=== PATIENT | male | born 1960 | race Caucasian/White ===

== ENCOUNTER 2021-03-03 14:55 | Inpatient (IN) | payer SELFPAY ==
[~2021-03-03] VITALS: Ht 180.3 cm; Wt 109.7 kg
[2021-03-03] MEDS ORDERED: IV NORMAL SALINE 1000ML BAG 1,000 ML IV ONE (20:00)
[2021-03-03 20:47] LABS: BASO # 0.1 x10^3/uL (0.0-0.2); BASO % 1 % (0-3); EOS # 0.1 x10^3/uL (0.0-0.7); EOS % 1 % (0-3); HEMOGLOBIN 14.8 g/dL (13.0-17.5); LYMPH # 3.9 x10^3/uL (1.0-4.8); LYMPH % 31 % (24-48); MEAN CORPUSCULAR HEMOGLOBIN 30 pg (25-35); MEAN CORPUSCULAR HGB CONC 34 g/dL (31-37); MEAN CORPUSCULAR VOLUME 89 fL (79-100); MONO % 8 % (0-9); NEUT # 7.3 x10^3/uL (1.8-7.7); NEUT % 59 % (31-73); PLATELET COUNT 349 x10^3/uL (140-400); RED BLOOD COUNT 4.92 x10^6/uL (4.30-5.70); RED CELL DISTRIBUTION WIDTH 12.7 % (11.5-14.5); WHITE BLOOD COUNT 12.5 x10^3/uL (4.0-11.0)
[2021-03-03 21:01] LABS: CALCIUM 8.7 mg/dL (8.5-10.1); CREATININE 0.6 mg/dL (0.7-1.3); GFR 138.4; POTASSIUM 4.3 mmol/L (3.5-5.1)
[2021-03-03 21:07] LABS: ALBUMIN 3.3 g/dL (3.4-5.0); ALBUMIN/GLOBULIN RATIO 0.8 (1.0-1.7); MAGNESIUM 1.8 mg/dL (1.8-2.4); TOTAL BILIRUBIN 0.4 mg/dL (0.2-1.0); TOTAL PROTEIN 7.4 g/dL (6.4-8.2)
--- NOTE | 2021-03-03 21:30 | RAD ---
Exam: Left foot 3 views INDICATION: Wound TECHNIQUE: Frontal, lateral and oblique views of the left foot Comparisons: None FINDINGS: Soft tissue irregularity noted along the lateral aspect of the midfoot. Periosteal reaction at the pr oximal phalanx of the fifth digit. No acute fractures identified. There is some irregularity of the f ifth metatarsal. IMPRESSION: Soft tissue swelling at the forefoot with lateral ulceration. Findings concerning for osteomyelitis a t the fifth digit proximal phalanx and metatarsal. Electronically signed by: Mike Treadwell MD (03/03/2021 9:27 PM) [facility]
--- NOTE | 2021-03-03 21:56 | PHYS DOC ---
Past Medical History Past Surgical History: No Surgical History (DAVION BAKER APRN) Smoking Status: Former Smoker Alcohol Use: None (DAVION BAKER APRN) General Adult EDM: Chief Complaint: WOUND CHECK HPI: HPI: Patient is a 60-year-old male who presents with wound to bottom of his foot. Patient reports he noticed the wound a couple days ago when he was there is drainage on his sock. Patient does not have an established primary care provider. Patient was seen in urgent care prior to coming to emergency room. Patient's denying pain. Wound is red, swollen and pus is draining from the site. Patient is afebrile. Patient denies all other complaints. Patient not up-to-date on immunizations. Patient denies any diagnosed medical history not taking any daily medications. (DAVION BAKER APRN) Review of Systems: Review of Systems: ROS At least 10 ROS systems have been reviewed and are negative except as documented in the HPI. General: Negative except as outlined in HPI above. Skin: Negative except as outlined in HPI above. HEENT: Negative except as outlined in HPI above. Neck: Negative except as outlined in HPI above. Respiratory: Negative except as outlined in HPI above.. Cardiovascular: Negative except as outlined in HPI above. Abdomen: Negative except as outlined in HPI above. : Negative except as outlined in HPI above. Back/MSK: Negative except as outlined in HPI above. Neuro: Negative except as outlined in HPI above. Psych: Negative except as outlined in HPI above. (DAVION BAKER APRN) Heart Score: C/O Chest Pain: No Risk Factors: Risk Factors: DM, Current or recent (<one month) smoker, HTN, HLP, family history of CAD, obesity. Risk Scores: Score 0 - 3: 2.5% MACE over next 6 weeks - Discharge Home Score 4 - 6: 20.3% MACE over next 6 weeks - Admit for Clinical Observation Score 7 - 10: 72.7% MACE over next 6 weeks - Early Invasive Strategies (DAVION BAKER APRN) Current Medications: Current Medications Medications (Trade) Dose Ordered Sig/Vladimir Start Time Stop Time Status Last Admin Dose Admin Sodium Chloride 1,000 ml @ 0 mls/hr 1X ONCE 03/03/21 20:00 03/03/21 20:04 DC 03/03/21 20:39 1,000 MLS/HR (DAVION BAKER APRN) Allergies: Allergies: Allergies Coded Allergies Type Severity Reaction Last Updated Verified No Known Drug Allergies 03/03/21 No (DAVION BAKER APRN) Physical Exam: PE: Constitutional: Well developed, well nourished, no acute distress, non-toxic appearance. [] HENT: Normocephalic, atraumatic, bilateral external ears normal, oropharynx moist, no oral exudates, nose normal. [] Eyes: PERRLA, EOMI, conjunctiva normal, no discharge. [] Neck: Normal range of motion, no tenderness, supple, no stridor. [] Cardiovascular:Heart rate regular rhythm, no murmur [] Lungs & Thorax: Bilateral breath sounds clear to auscultation [] Abdomen: Bowel sounds normal, soft, no tenderness, no masses, no pulsatile masses. [] Skin: diabetic foot ulcer on lateral aspect of midfoot. Purulent drainage is coming from the wound along with swelling Back: No tenderness, no CVA tenderness. [] Extremities: No tenderness, no cyanosis, no clubbing, ROM intact, no edema. [] Neurologic: Alert and oriented X 3, normal motor function, normal sensory function, no focal deficits noted. [] Psychologic: Affect normal, judgement normal, mood normal. [] (DAVION BAKER APRN) Current Patient Data: Labs: Laboratory Tests Test 03/03/21 20:36 White Blood Count 12.5 x10^3/uL (4.0-11.0) H Red Blood Count 4.92 x10^6/uL (4.30-5.70) Hemoglobin 14.8 g/dL (13.0-17.5) Hematocrit 44.0 % (39.0-53.0) Mean Corpuscular Volume 89 fL (79-100) Mean Corpuscular Hemoglobin 30 pg (25-35) Mean Corpuscular Hemoglobin Concent 34 g/dL (31-37) Red Cell Distribution Width 12.7 % (11.5-14.5) Platelet Count 349 x10^3/uL (140-400) Neutrophils (%) (Auto) 59 % (31-73) Lymphocytes (%) (Auto) 31 % (24-48) Monocytes (%) (Auto) 8 % (0-9) Eosinophils (%) (Auto) 1 % (0-3) Basophils (%) (Auto) 1 % (0-3) Neutrophils # (Auto) 7.3 x10^3/uL (1.8-7.7) Lymphocytes # (Auto) 3.9 x10^3/uL (1.0-4.8) Monocytes # (Auto) 1.0 x10^3/uL (0.0-1.1) Eosinophils # (Auto) 0.1 x10^3/uL (0.0-0.7) Basophils # (Auto) 0.1 x10^3/uL (0.0-0.2) Erythrocyte Sedimentation Rate 45 (0-15) H Sodium Level 137 mmol/L (136-145) Potassium Level 4.3 mmol/L (3.5-5.1) Chloride Level 99 mmol/L (98-107) Carbon Dioxide Level 27 mmol/L (21-32) Anion Gap 11 (6-14) Blood Urea Nitrogen 13 mg/dL (8-26) Creatinine 0.6 mg/dL (0.7-1.3) L Estimated GFR (Cockcroft-Gault) 138.4 BUN/Creatinine Ratio 22 (6-20) H Glucose Level 298 mg/dL (70-99) H Calcium Level 8.7 mg/dL (8.5-10.1) Magnesium Level 1.8 mg/dL (1.8-2.4) Total Bilirubin 0.4 mg/dL (0.2-1.0) Aspartate Amino Transferase (AST) 32 U/L (15-37) Alanine Aminotransferase (ALT) 31 U/L (16-63) Alkaline Phosphatase 147 U/L (46-116) H Total Protein 7.4 g/dL (6.4-8.2) Albumin 3.3 g/dL (3.4-5.0) L Albumin/Globulin Ratio 0.8 (1.0-1.7) L Laboratory Tests 03/03/21 20:36 Laboratory Tests 03/03/21 20:36 Vital Signs: Vital Signs Date Time Temp Pulse Resp B/P (MAP) Pulse Ox O2 Delivery O2 Flow Rate FiO2 03/03/21 19:11 97.9 111 18 193/116 (141) 98 Room Air 97.9 (DAVION BAKER BARTACKER) EKG: EKG: [] (DAVION BAKER APRN) Radiology/Procedures: Radiology/Procedures: []Exam: Left foot 3 views INDICATION: Wound TECHNIQUE: Frontal, lateral and oblique views of the left foot Comparisons: None FINDINGS: Soft tissue irregularity noted along the lateral aspect of the midfoot. Periosteal reaction at the proximal phalanx of the fifth digit. No acute fractures identified. There is some irregularity of the fifth metatarsal. IMPRESSION: Soft tissue swelling at the forefoot with lateral ulceration. Findings concerning for osteomyelitis at the fifth digit proximal phalanx and metatarsal. Electronically signed by: Mike Treadwell MD (03/03/2021 9:27 PM) [facility] (DAVION BAKER APRN) Course & Med Decision Making: Course & Med Decision Making Pertinent Labs and Imaging studies reviewed. (See chart for details) [] 60-year-old male presents with diabetic foot ulcer on lateral aspect of midfoot. Work-up in the ER consisted of blood work, imaging. All labs were unremarkable. Foot x-ray is suspicious for osteomyelitis. Discussed results with patient. Advised patient he would need to be admitted for diabetic ulcer and uncontrolled diabetes. Patient's blood pressure was also elevated. Patient placed on medication for hypertension. IV antibiotics were started. Patient verbalized he understands admission plan. Discussed patient's case with hospitalist and patient was admitted for further management and treatment. (DAVION BAKER APRN) Course & Med Decision Making I was the Attending physician on the above date of service of this patient. This patient was evaluated, examined, treated, and dispositioned from the emergency department by the mid-level practitioner. I reviewed care of patient agreed to need for admission Electronically signed, Hermelindo Arellano DO (HERMELINDO AERLLANO DO) Brennen Disclaimer: Brennen Disclaimer: This electronic medical record was generated, in whole or in part, using a voice recognition dictation system. (DAVION BAKER APRN) Departure Departure Impression: Primary Impression: Foot ulcer, left Qualified Codes: L97.529 - Non-pressure chronic ulcer of other part of left foot with unspecified severity Additional Impressions: HTN (hypertension) Qualified Codes: I10 - Essential (primary) hypertension New onset type 2 diabetes mellitus Disposition: ADMITTED INPATIENT Admitting Physician: ALEXEY (DAVION BAKER APRN) Condition: STABLE Referrals: NO PCP (PCP) DAVION BAKER APRN Mar 03, 2021 21:56 HERMELINDO ARELLANO DO Mar 08, 2021 06:09
[2021-03-03] MEDS ORDERED: PIPERACILLIN/TAZOBACTAM 4.5 GM in IV NORMAL SALINE 100ML 100 ML IV ONE (23:45)
[2021-03-04] MEDS ORDERED: VANCOMYCIN 2 GM in IV NORMAL SALINE 500ML BAG 500 ML IV ONE (00:30)
[2021-03-04] MEDS ORDERED: LISINOPRIL 10 MG TABLET PO ONE (01:30)
[2021-03-04 03:30] VITALS: BP 168/101
[2021-03-04] MEDS: VANCOMYCIN PER PHARMACY MC PRN ×2 (04:23→11:43)
--- NOTE | 2021-03-04 04:23 | NUR ---
Pharmacy Vancomycin Dosing Note S:Consulted to monitor and dose vancomycin started 03/04/21. O:MONISHA LARA is a 60 year old M with DIABETIC FOOT ULCER, POSSIBLE OSTEOMYELITIS . Height: 5 feet, 11 inches Weight: 106.8 kg [place] Body Weight: 75.30 Adjusted Body Weight: 87.90 Dosing Weight: Actual Other Antibiotics: ZOSYN X1 ED LABS: Last BUN: 13 Last Creatinine: 0.6 Creatinine Clearance: 167 mL/min Last WBC: 12.5 Last Procalcitonin: Tmax (past 24 hours): Microbiology: I/O: Drug Levels: Last level: on at Last dose given 03/04/21 at 0030 Vancomycin Dosing: Loading Dose: 2000 mg x1 Dosing Weight: Actual Target Trough: 10-20 A: Based on: HT AND WT P: 1. Begin Vancomycin 1500 mg IV q8h 2. Follow up Trough level on 03/05/21 at 0030 3. Pharmacy will continue to monitor, follow and adjust therapy as needed. BLAYNE SPARKS RPH, 03/04/21 0423 Signed: 03/04/21 at 042 by BLAYNE SPARKS RPH PHA
[2021-03-04 07:00] VITALS: BP 148/88
[2021-03-04] MEDS: PIPERACILLIN/TAZOBACTAM 4.5 GM in IV NORMAL SALINE 100ML 100 ML IV SCH ×3 (09:00→19:13)
[2021-03-04] MEDS ORDERED: PIP/TAZO PER PHARMACY MC PRN (09:00)
[2021-03-04] MEDS: VANCOMYCIN 1.5 GM in IV NORMAL SALINE 500ML BAG 500 ML IV SCH ×2 (09:04→16:52)
--- NOTE | 2021-03-04 09:11 | HP ---
DATE OF SERVICE: 03/04/2021 ADMIT DATE: 03/04/2021 CHIEF COMPLAINT: Left foot wound. HISTORY OF PRESENT ILLNESS: The patient is a pleasant 60-year-old male who is on no medications. I do not think he goes to the doctor. He came in with what appears to be a diabetic foot wound on the left. He also has what appears to be a Charcot joint on the right. I suspect he has had diabetes for 3 years. I discussed the case with the ER physician. We are going to admit the patient, get him on some insulin and consult Orthopedics. PAST MEDICAL HISTORY: Probable noncompliance, previous tobacco abuse, probable long, diagnosis of diabetes has been undiagnosed. ALLERGIES: None. FAMILY HISTORY: Diabetes. SOCIAL HISTORY: He smokes. No drink or drugs. MEDICATIONS: Reviewed, please refer to the MRAD. REVIEW OF SYSTEMS: GENERAL: No history of weight change, weakness or fevers. SKIN: No bruising, hair changes or rashes. EYES: No blurred, double or loss of vision. NOSE AND THROAT: No history of nosebleeds, hoarseness or sore throat. HEART: No history of palpitations, chest pain or shortness of breath on exertion. LUNGS: Denies cough, hemoptysis, wheezing or shortness of breath. GASTROINTESTINAL: Denies changes in appetite, nausea, vomiting, diarrhea or constipation. GENITOURINARY: No history of frequency, urgency, hesitancy or nocturia. NEUROLOGIC: Denies history of numbness, tingling, tremor or weakness. PSYCHIATRIC: No history of panic, anxiety or depression. ENDOCRINE: No history of heat or cold intolerance, polyuria or polydipsia. EXTREMITIES: He complains of left foot pain. PHYSICAL EXAMINATION: VITALS: Within normal limits and are stable. GENERAL: No apparent distress. Alert and oriented. HEENT: Normal cephalic atraumatic, external auditory canals are patent. EYES: Extraocular muscles are intact, pupils are equally round and reactive to light and accommodation. MUSCULOSKELETAL: Well developed, well nourished, good range of motion. ENDOCRINE: No thyromegaly was palpated. LYMPHATICS: No cervical chain or axillary nodes were noted. HEMATOPOIETIC: No bruising. NECK: Supple, no JVD, no thyromegaly was noted. LUNGS: Clear to auscultation in all lung tony without rhonchi or wheezing. HEART: RRR, S1, S2 present. Peripheral pulses intact, no obvious murmurs were noted. ABDOMEN: Soft, nontender. Positive bowel sounds no organomegaly, normal bowel sounds. EXTREMITIES: He has a left foot diabetic wound, please see the pictures. On the right foot, he has got a Charcot joint. NEUROLOGIC: Normal speech, normal tone. A and O x 3, moves all extremities, no obvious focal deficits. PSYCHIATRIC: Normal affect, normal mood. Stable. SKIN: No ulcerations or rashes, good skin turgor, no jaundice. VASCULAR: Good capillary refill, neurovascular bundle appears to be intact. LABORATORY DATA: Electrolytes are normal except for a glucose of 303. White count is 12.5. Foot x-ray shows soft tissue swelling of the left forefoot, concerning for osteomyelitis. ASSESSMENT AND PLAN: Osteomyelitis secondary to diabetic foot lesion. The patient has been admitted. We will start IV antibiotics. Consult Orthopedics. I have started subcutaneous insulin, 10 units of NovoLog with meals and 20 at bedtime of Lantus. Continue the vancomycin. DVT prophylaxis. Full code. EVER DR: Emeka TID: [id number]
--- NOTE | 2021-03-04 10:49 | NUR ---
SW following. Discussed with RN, pt from home, room air, ada diet. New diabetic. Wound care and Vascular following. Med Assist following for self pay status. SW will continue to follow.
[2021-03-04 11:00] VITALS: BP 142/83
[2021-03-04] MEDS: INSULIN LISPRO 300 UNITS/3 ML VIAL. SQ SCH ×2 (12:17→17:24)
--- NOTE | 2021-03-04 14:43 | NUR ---
Wound/Ostomy Care Wound Type/Assessment: Wound care consult for left plantar 5th met head DFU. No other wounds noted on head to toe skin assessment. Wounds cleansed and redressed. Dr. Rock and Dr. Escobar at bedside at time of assessment. Treatment Recommendations/Plan: Cleanse wound with saline or wound wash. Cover with iodoflex, gauze and kerlix. Change every 2-3 days. Education provided: pt educated on offloading, using crutches and walker for ambulation to keep weight off left foot. Offloading surface/device: walker for ambulation, re-eval after surgery for possible offloading shoe. Recommended Referrals/Tests: Dr. Rock following up Discharge Recommendations for dressings: possible surgery with Dr. Rock tomorrow, follow Dr. Rock recommendations after surgery. Addendum: 03/04/21 at 1543 by DARLENE BENZ RN pt verbalized feelings and concerns d/t his current medical situation during consult, pt was asked about suicidal ideations which he denied.
[2021-03-04 15:00] VITALS: BP 163/98
--- NOTE | 2021-03-04 15:21 | PDOC2 ---
CONSULT Date of Consult Date of Consult DATE: 03/04/21 TIME: 15:10 Reason for Consult Reason for Consult: Left foot ulcer Source Source: Patient History of Present Illness Reason for Visit: Patient presents with a left fifth metatarsal head ulcer for unknown duration without any inciting events. Patient noticed bloody drainage from the sock which prompted him to ER. Patient denies any dressing change, recent antibiotics. He denies any constitutional symptoms. Patient relates mild d iscomfort with pressure and activities to the left fifth metatarsal head. Otherwise, he denies any prior history of metatarsal fractures or injury to the left foot. Patient also has right rocker-bottom deformity for unknown duration without any inciting events. Patient denies any open sores, drainage, redness or swelling to the right foot. Per chart review, patient was recently diagnosed with diabetes. He denies any tobacco abuse. He works in sales and also construction. He lives with an elderly mother at home. Current Problem List Problem List Problems Medical Problems: (1) Foot ulcer, left Status: Acute (2) HTN (hypertension) Status: Acute (3) New onset type 2 diabetes mellitus Status: Acute Current Medications Current Medications Current Medications Sodium Chloride 1,000 ml @ 0 mls/hr 1X ONCE IV Last administered on 03/03/21at 20:39; Start 03/03/21 at 20:00; Stop 03/03/21 at 20:04; Status DC Piperacillin Sod/ Tazobactam Sod 4.5 gm/Sodium Chloride 100 ml @ 200 mls/hr 1X ONCE IV Last administered on 03/04/21at 00:28; Start 03/03/21 at 23:45; Stop 03/04/21 at 00:14; Status DC Vancomycin HCl 2 gm/Sodium Chloride 500 ml @ 250 mls/hr 1X ONCE IV Last administered on 03/04/21at 00:28; Start 03/04/21 at 00:30; Stop 03/04/21 at 02:29; Status DC Vancomycin HCl (Vanco Per Pharmacy) 1 each PRN DAILY PRN MC SEE COMMENTS Last administered on 03/04/21at 11:43; Start 03/03/21 at 23:45 Lisinopril (Prinivil) 10 mg 1X ONCE PO Last administered on 03/04/21at 01:30; Start 03/04/21 at 01:30; Stop 03/04/21 at 01:31; Status DC Vancomycin HCl 1.5 gm/Sodium Chloride 500 ml @ 250 mls/hr Q8H IV Last administered on 03/04/21at 09:04; Start 03/04/21 at 09:00 Vancomycin HCl (Vancomycin Trough Level) 1 each 1X ONCE MC ; Start 03/05/21 at 00:30; Stop 03/05/21 at 00:31 Insulin Human Lispro (HumaLOG) 10 units TIDAC SQ Last administered on 03/04/21at 12:17; Start 03/04/21 at 11:30 Insulin Glargine (Lantus Syringe) 20 unit QHS SQ ; Start 03/04/21 at 21:00 Amlodipine Besylate (Norvasc) 10 mg DAILY PO Last administered on 03/04/21at 09: 08; Start 03/04/21 at 09:00 Piperacillin Sod/ Tazobactam Sod (Zosyn Per Pharmacy) 1 each PRN DAILY PRN MC SEE COMMENTS; Start 03/04/21 at 09:00 Piperacillin Sod/ Tazobactam Sod 4.5 gm/Sodium Chloride 100 ml @ 200 mls/hr Q6HRS IV Last administered on 03/04/21at 11:26; Start 03/04/21 at 09:00 Lactobacillus Rhamnosus (Culturelle) 1 cap BID PO ; Start 03/04/21 at 21:00 Allergies Allergies: Coded Allergies: No Known Drug Allergies (Unverified , 03/03/21) ROS Review of System CONSTITUTIONAL: No fever. No chills. No dizziness. No weakness. CARDIOVASCULAR: No chest pain. No palpitations. No lower extremity edema. RESPIRATORY: No shortness of breath, cough, pain with respiration. No he moptysis. No dyspnea. GASTROINTESTINAL: Normal appetite. No nausea, vomiting, diarrhea. GENITOURINARY: No frequency, urgency, nocturia. No hematuria or dysuria. MUSCULOSKELETAL: No arthralgias or myalgias. INTEGUMENTARY: Refer to HPI NEUROLOGIC: No numbness or tingling of the extremities. No weakness. PSYCHIATRIC: No confusion. ENDOCRINE: No fatigue. No weakness. HEMATOLOGICAL: No bleeding. No petechiae. No bruising. ALLERGIES: No asthma. No urticaria Physical Exam Physical Exam General: Pleasant without apparent distress, AOx3 Left lower extremity focused Dermatology: -Full-thickness ulcer to the sub fifth metatarsal head, probe to periosteum. There is mild to moderate undermining without any tracking dorsally or proximally along the intermetatarsal space. The wound bed is fibrotic and necrotic with malodor. There is no to minimal purulent drainage from the wound. There is erythema extending from the plantar wound dorsal medially to the fifth metatarsal neck. Vascular: -DP/PT palpable -Foot is warm to touch with CFT less than 3 seconds x 5 Neurology: -Light touch sensation diminished to the level of digits 1 through 5 MSK: -[-] TTP at the surgical site near fifth metatarsal head -Able to move digits -Muscle strength 5 out of 5 across ankle joint -Calf is soft and nontender -Moderate metatarsus adductus deformity Vitals VITALS Vital Signs Date Time Temp Pulse Resp B/P (MAP) Pulse Ox O2 Delivery O2 Flow Rate FiO2 03/04/21 11:00 98.2 99 18 142/83 (102) 95 Room Air 98.2 Labs Labs Laboratory Tests Test 03/03/21 20:36 03/04/21 08:32 03/04/21 11:57 White Blood Count 12.5 x10^3/uL (4.0-11.0) Red Blood Count 4.92 x10^6/uL (4.30-5.70) Hemoglobin 14.8 g/dL (13.0-17.5) Hematocrit 44.0 % (39.0-53.0) Mean Corpuscular Volume 89 fL (79-100) Mean Corpuscular Hemoglobin 30 pg (25-35) Mean Corpuscular Hemoglobin Concent 34 g/dL (31-37) Red Cell Distribution Width 12.7 % (11.5-14.5) Platelet Count 349 x10^3/uL (140-400) Neutrophils (%) (Auto) 59 % (31-73) Lymphocytes (%) (Auto) 31 % (24-48) Monocytes (%) (Auto) 8 % (0-9) Eosinophils (%) (Auto) 1 % (0-3) Basophils (%) (Auto) 1 % (0-3) Neutrophils # (Auto) 7.3 x10^3/uL (1.8-7.7) Lymphocytes # (Auto) 3.9 x10^3/uL (1.0-4.8) Monocytes # (Auto) 1.0 x10^3/uL (0.0-1.1) Eosinophils # (Auto) 0.1 x10^3/uL (0.0-0.7) Basophils # (Auto) 0.1 x10^3/uL (0.0-0.2) Erythrocyte Sedimentation Rate 45 (0-15) Sodium Level 137 mmol/L (136-145) Potassium Level 4.3 mmol/L (3.5-5.1) Chloride Level 99 mmol/L (98-107) Carbon Dioxide Level 27 mmol/L (21-32) Anion Gap 11 (6-14) Blood Urea Nitrogen 13 mg/dL (8-26) Creatinine 0.6 mg/dL (0.7-1.3) Estimated GFR (Cockcroft-Gault) 138.4 BUN/Creatinine Ratio 22 (6-20) Glucose Level 298 mg/dL (70-99) Calcium Level 8.7 mg/dL (8.5-10.1) Magnesium Level 1.8 mg/dL (1.8-2.4) Total Bilirubin 0.4 mg/dL (0.2-1.0) Aspartate Amino Transf (AST/SGOT) 32 U/L (15-37) Alanine Aminotransferase (ALT/SGPT) 31 U/L (16-63) Alkaline Phosphatase 147 U/L (46-116) Total Protein 7.4 g/dL (6.4-8.2) Albumin 3.3 g/dL (3.4-5.0) Albumin/Globulin Ratio 0.8 (1.0-1.7) Glucose (Fingerstick) 303 mg/dL (70-99) 361 mg/dL (70-99) Laboratory Tests Test 03/03/21 20:36 03/04/21 08:32 03/04/21 11:57 White Blood Count 12.5 x10^3/uL (4.0-11.0) Red Blood Count 4.92 x10^6/uL (4.30-5.70) Hemoglobin 14.8 g/dL (13.0-17.5) Hematocrit 44.0 % (39.0-53.0) Mean Corpuscular Volume 89 fL (79-100) Mean Corpuscular Hemoglobin 30 pg (25-35) Mean Corpuscular Hemoglobin Concent 34 g/dL (31-37) Red Cell Distribution Width 12.7 % (11.5-14.5) Platelet Count 349 x10^3/uL (140-400) Neutrophils (%) (Auto) 59 % (31-73) Lymphocytes (%) (Auto) 31 % (24-48) Monocytes (%) (Auto) 8 % (0-9) Eosinophils (%) (Auto) 1 % (0-3) Basophils (%) (Auto) 1 % (0-3) Neutrophils # (Auto) 7.3 x10^3/uL (1.8-7.7) Lymphocytes # (Auto) 3.9 x10^3/uL (1.0-4.8) Monocytes # (Auto) 1.0 x10^3/uL (0.0-1.1) Eosinophils # (Auto) 0.1 x10^3/uL (0.0-0.7) Basophils # (Auto) 0.1 x10^3/uL (0.0-0.2) Erythrocyte Sedimentation Rate 45 (0-15) Sodium Level 137 mmol/L (136-145) Potassium Level 4.3 mmol/L (3.5-5.1) Chloride Level 99 mmol/L (98-107) Carbon Dioxide Level 27 mmol/L (21-32) Anion Gap 11 (6-14) Blood Urea Nitrogen 13 mg/dL (8-26) Creatinine 0.6 mg/dL (0.7-1.3) Estimated GFR (Cockcroft-Gault) 138.4 BUN/Creatinine Ratio 22 (6-20) Glucose Level 298 mg/dL (70-99) Calcium Level 8.7 mg/dL (8.5-10.1) Magnesium Level 1.8 mg/dL (1.8-2.4) Total Bilirubin 0.4 mg/dL (0.2-1.0) Aspartate Amino Transf (AST/SGOT) 32 U/L (15-37) Alanine Aminotransferase (ALT/SGPT) 31 U/L (16-63) Alkaline Phosphatase 147 U/L (46-116) Total Protein 7.4 g/dL (6.4-8.2) Albumin 3.3 g/dL (3.4-5.0) Albumin/Globulin Ratio 0.8 (1.0-1.7) Glucose (Fingerstick) 303 mg/dL (70-99) 361 mg/dL (70-99) Assessment/Plan Assessment/Plan Left fifth metatarsal head ulcer, cellulitis, possible osteomyelitis in the setting of type 2 diabetes, peripheral neuropathy, SIRS criteria Stable none acute right midfoot Charcot with a rocker-bottom deformity -Explained clinical findings to patient. Given the chronicity of the disease, probe to periosteum, large soft tissue deficit, soft tissue healing barrier with diabetes and neuropathy, I recommended fifth metatarsal head amputation, incision and drainage staged with a later rotational flap of the fifth digit if the source is limited to the fifth metatarsal head based on intraoperative finding. However there is a chance of further limb loss if there is tracking purulence and necrotic changes to the lesser metatarsals. We discussed extensively on the recovery which requires nonweightbearing to the left lower extremity for 4 to 5 weeks at least, outpatient antibiotics for source control in addition to surgery. Any deviation from the recommendation protocol will lead to possible worsening infection, second surgery and limb loss. Patient is very apprehensive with losing the foot and also taken time off work. However he understands that surgical intervention is more predictable, definitive and o verall shorter recovery course then long-term conservative antibiotics. -The wound was dressed with Betadine soaked packing strips, gauze and Kerlex, dressing change as above twice daily otherwise, keep it clean dry intact -Partial heel touchdown weightbearing in the surgical shoe with PT and bathroom privileges, left. Weight-bear as tolerated in supportive shoes on the right -PT eval and treat -IV antibiotics, broad-spectrum IV Vanco and Zosyn -Recommend ID consult -Pending blood culture and wound culture of the left lower extremity -N.p.o. after midnight Dispo: Plan for surgical fifth metatarsal head incision and drainage staged with later rotational flap of the fifth digit pending intraoperative finding, left MATHEWDUSHREYAS DPBryon Mar 04, 2021 15:21
--- NOTE | 2021-03-04 16:40 | PDOC ---
Progress Note-Wound Care SUBJECTIVE 2 week hx of wound of plantar left 5th MT head and 5th toe. No known injury or trauma. He first noticed an odor, and when his mother asked him about the odor she examined the foot and sent him to the ER. He did not know he has diabetes. He has no insurance and does not seek medical services regularly. He has no know hx of difficulty with wound healing. He has little or no pain associated with this ulcer. OBJECTIVE Vital Signs Vital Signs Date Time Temp Pulse Resp B/P (MAP) Pulse Ox O2 Delivery O2 Flow Rate FiO2 03/03/21 19:11 97.9 111 18 193/116 (141) 98 Room Air 97.9 Vital Signs Date Time Temp Pulse Resp B/P (MAP) Pulse Ox O2 Delivery O2 Flow Rate FiO2 03/04/21 15:00 98.5 109 18 163/98 (119) 97 Room Air 98.5 Physical Exam: Deep dark wound left 5th MT head is dark with necrotic wound bed. Bone is not palpable, but there is tunnel running medially. The 5th toe is red. Otherwise the periwound is normal. The odor is foul, consistent with necrotic tissue/gangrene. Glucose was over 500 in the ED and has been running at 300 and above. ASSESSMENT This Mancia 3 or 4 DFU is limb-threatening. I would like to see open surgical debridement. The plain film is consistent with osteomyelitis as well. This patient is struggling with the ramifications of this disease. 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 He has no insurance and is concerned about how he is going to pay these medical bills. He is the only transportation for his mother who is undergoing ongoing treatment for ovarian cancer. Social work assistance is indicated. WOUND Location of Modifier: Left Wound Location: Plantar Body Site: Foot Associated Signs/Symptoms: Odor Drainage Amount: Scant Odor: Foul Odor Wound Description: muscle Grade Mancia: 3 Tunneling: Present PLAN I agree with Dr. Farmer's plan for open debridement with delayed closure. If we are able to close this wound he will be able to be back at work sooner than if we treated an open wound with negative pressure wound therapy. We can do vera flow between the first and second surgeries to help maintain a clean healthy wound. His pulses not palpable in his left dorsal pedis artery so I will order arterial ultrasound to see if further vascular intervention is indicated. 45 minutes was spent discussing options and plans and severity of his disease. PRASHANTH MERCHANT MD Mar 04, 2021 16:40
[2021-03-04 19:00] VITALS: BP 139/73
[2021-03-04] MEDS: LACTOBACILLUS RHAMNOSUS GG 1 CAPSULE. PO SCH (21:02)
[2021-03-04] MEDS: INSULIN GLARGINE SYRINGE. SQ SCH (21:21)
[2021-03-04 23:00] VITALS: BP 143/92
[2021-03-05] VITALS (11 sets, daily range): BP systolic 125–174; BP diastolic 75–104
[2021-03-05 00:55] LABS: CALCIUM 7.8 mg/dL (8.5-10.1); CREATININE 1.1 mg/dL (0.7-1.3); GFR 68.8; POTASSIUM 3.6 mmol/L (3.5-5.1)
[2021-03-05] MEDS: PIPERACILLIN/TAZOBACTAM 4.5 GM in IV NORMAL SALINE 100ML 100 ML IV SCH ×4 (00:55→17:36)
[2021-03-05 01:01] LABS: VANC TR 14.9 mcg/mL (10.0-20.0)
[2021-03-05] MEDS: VANCOMYCIN PER PHARMACY MC PRN (01:15)
--- NOTE | 2021-03-05 01:15 | NUR ---
Pharmacy Vancomycin Dosing Note S:Consulted to monitor and dose vancomycin started 03/04/21. O:MONISHA LARA is a 60 year old M with Osteomyelitis DIABETIC FOOT ULCER, POSSIBLE OSTEOMYELITIS . Height: 5 feet, 11 inches Weight: 106.6 kg [place] Body Weight: 75.30 Adjusted Body Weight: 87.82 Dosing Weight: Actual Other Antibiotics: ZOSYN LABS: Last BUN: 13 Last Creatinine: 0.6 Creatinine Clearance: >100 mL/min Last WBC: 12.5 Last Procalcitonin: Tmax (past 24 hours): 98.7 Microbiology: - I/O: Drug Levels: Last Trough level: 14.9 on 03/05/21 at 0030 Last dose given 03/04/21 at 0904 Vancomycin Dosing: Loading Dose: 2000 mg x1 Dosing Weight: Actual Target Trough: 15-20 A: Based on: TROUGH P: 1. Continue Vancomycin 1500 mg IV q8h 2. Follow up Trough level IF NEEDED 3. Pharmacy will continue to monitor, follow and adjust therapy as needed. BLAYNE SPARKS RPH, 03/05/21 0116 Signed: 03/05/21 at 0116 by BLAYNE SPARKS RPH PHA
[2021-03-05] MEDS: VANCOMYCIN 1.5 GM in IV NORMAL SALINE 500ML BAG 500 ML IV SCH ×3 (01:44→18:14)
--- NOTE | 2021-03-05 03:35 | RAD ---
LEFT LOWER EXTREMITY DUPLEX ARTERY ULTRASOUND Indication: Reason: Infected new left Diabetic Foot Ulcer on bottom of foot under 5th toe / Spl. Inst ructions: / History: Comparison: None. Procedure: Real-time grayscale, color flow Doppler, and Doppler spectral waveform analysis of the art erial system of the lower extremity is performed. Findings: Normal triphasic waveforms are present in the common femoral artery, superficial femoral artery, popl iteal artery, anterior tibial artery, peroneal artery, posterior tibial artery, and dorsalis pedis ar jose manuel. There is mild plaque in calf arteries. There is no elevated peak systolic velocity. IMPRESSION: No hemodynamically significant stenosis. Electronically signed by: Sammy Marrufo MD (03/05/2021 3:32 AM) JOCELYNENATHANAEL
[2021-03-05] MEDS ORDERED: IV RINGERS,LACTATED 1000ML 1,000 ML IV SCH (06:00)
[2021-03-05] MEDS ORDERED: PROCHLORPERAZINE 10 MG/2 ML VIAL. IVP PRN (06:00)
[2021-03-05] MEDS ORDERED: HYDROmorphone 2 MG/ML VIAL IVP PRN (06:00)
[2021-03-05] MEDS ORDERED: MORPHINE SULFATE 2 MG/ML INJ. IVP PRN (06:00)
[2021-03-05] MEDS ORDERED: fentaNYL PF VIAL 100 MCG/2 ML VIAL IVP PRN ×2 (06:00)
[2021-03-05] MEDS ORDERED: VANCOMYCIN 1 GM VIAL. ONE (07:11)
[2021-03-05] MEDS ORDERED: BUPIVACAINE MPF 0.25% 30 ML VIAL. ONE (07:11)
[2021-03-05] MEDS: INSULIN LISPRO 300 UNITS/3 ML VIAL. SQ SCH ×3 (07:30→17:40)
[2021-03-05] MEDS ORDERED: fentaNYL PF VIAL 100 MCG/2 ML VIAL ONE (08:59)
[2021-03-05] MEDS ORDERED: BUPIVACAINE-EPI 0.25% 30 ML VIAL KIT. INJ ONE (09:20)
[2021-03-05] MEDS ORDERED: ONDANSETRON PF 4 MG/2 ML VIAL. ONE (09:27)
[2021-03-05] MEDS ORDERED: LIDOCAINE 2% PF 5 ML VIAL. ONE (09:27)
[2021-03-05] MEDS ORDERED: PROPOFOL 10 MG/ML (20ML) VIAL. IV ONE (09:27)
[2021-03-05] MEDS ORDERED: ePHEDrine PF IN SALINE 50 MG/10 ML SYRINGE. IV ONE (09:34)
[2021-03-05] MEDS ORDERED: SEVOFLURANE 31 TO 60 MINUTES. IH ONE (09:44)
--- NOTE | 2021-03-05 10:07 | PDOC4 ---
OPERATIVE NOTE Date: Date: Mar 05, 2021 Pre-Op Diagnosis: Left fifth metatarsal head ulcer, cellulitis, sepsis in the setting of diabetes and peripheral neuropathy. X-ray is concerning for osteomyelitis Post-Op Diagnosis: Same as above Procedure Performed: Left foot incision and drainage, fifth metatarsal head and fifth proximal phalangeal base resection, wound VAC application, posterior splint application Surgeon: Kate Carmona DPM Anesthesia Type: General Blood Loss: 10 cc Specimans Obtained: Left fifth metatarsal head, proximal base of the fifth phalanx Findings: Full-thickness necrotic wound to the plantar fifth metatarsal head, left. The wound probed to periosteum. Upon further debridement, there was no purulence, proximal tendon tracking, violation to the fourth intermetatarsal space. The metatarsal and fifth phalanx were probe firm without any osteolytic changes clinically. Complications: None Operative Note: Patient was brought into the operating room and placed on the operating table in a supine position. A timeout was performed to confirm patient's identity, location of surgery and procedure. After induction of general anesthesia, a pneumatic high ankle tourniquet was placed with pressure set 250 mmHg. The left lower extremity was then scrubbed, prepped and draped in the usual sterile manner. The left lower extremity was elevated for gravity exsanguination and the tourniquet was inflated to 250 mmHg. Then the attention was directed to the left plantar fifth metatarsal head. A modified semielliptical full-thickness skin incisions were made at the fifth metatarsal head wound. This was carried out to aid better tissue bed examination and tissue plane exploration for proximal tracking. The incision was carried deep to the periosteum near the fifth metatarsal head. All the necrotic, liquefied tissue were excised to healthy bleeding wound bed. Then using combination of sharp and blunt dissection, fifth MTPJ joint was exposed and visualized. A sagittal saw was used to resect out the distal fifth metatarsal head and a wafer of the fifth proximal metatarsal base as well for osteomyelitis rule out. The proximal margin of the fifth metatarsal head and the distal margin of the fifth phalanx were marked with a black pen. 2 specimens were sent for pathology. Further wound bed evaluation was unremarkable for necrotic osseous changes or fourth MTPJ capsule violation. Then 3 L of saline solution was used to irrigate the wound. 1 deep tissue culture was sent for anaerobes, aerobes, Gram stain and core sensitivity. The tissue appeared granular with healthy pinpoint bleeding. A wound VAC was applied to the wound base to allow soft tissue demarcation and granulation at the procedure site. Adequate seal was achieved at 125 mmHg. tourniquet was deflated and adequate due to perfusion was noted to all 5 digits. Postoperative anesthesia consisted of 10 cc of 0.25% Marcaine plain was infiltrated to the surgical site for pain control. The left surgical lower extremity was immobilized in a well-padded Vinson compression splint with ankle held in near 90 degrees. Patient tolerated procedure anesthesia well with vital signs stable and neurovascular status intact. Patient was then transferred to PACU for continued recovery. Pending left foot 3 view x-ray in PACU. KATE CARMONA DPM Mar 05, 2021 10:07
[2021-03-05] MEDS ORDERED: INSULIN LISPRO 100 UNIT/ML 3ML VIAL for OP,RR ONLY. SQ PRN (10:15)
[2021-03-05] MEDS: LACTOBACILLUS RHAMNOSUS GG 1 CAPSULE. PO SCH ×2 (12:17→20:53)
--- NOTE | 2021-03-05 15:27 | RAD ---
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 Moderate associated soft tissue swelling. Electronically signed by: Ish Kelley MD (03/05/2021 3:25 PM) [id number]
--- NOTE | 2021-03-05 16:05 | NUR ---
SW following. Discussed with RN, pt had surgery this morning. PCR COVID came back positive. Pt does not have any Medicaid qualifiers at this time, per [facility]. SW will continue to follow.
--- NOTE | 2021-03-05 20:38 | PDOC ---
[facility] [facility] PROGRESS NOTE Date of Service DOS: DATE: 03/05/21 TIME: 20:37 Chief Complaint Chief Complaint Postop Left foot incision and drainage, fifth metatarsal head and fifth proximal phalangeal base resection, wound VAC application, posterior splint application New diagnosis of diabetes (I suspect he has had this for many years) Probable Charcot's joint Vitals/I&O Vitals/I&O: Vital Signs Date Time Temp Pulse Resp B/P (MAP) Pulse Ox O2 Delivery O2 Flow Rate FiO2 03/05/21 19:00 97.8 101 18 159/93 (115) 93 Room Air 97.8 03/05/21 09:58 10 I & O 03/04/21 03/04/21 03/05/21 15:00 23:00 07:00 Intake Total 920 ml 750 ml 100 ml Output Total 400 ml 400 ml Balance 920 ml 350 ml -300 ml Physical Exam General: Alert, Cooperative Heart: Regular rate Lungs: Clear Abdomen: Normal bowel sounds Extremities: Other (Left foot with clean dry intact dressing) Skin: No rashes Labs Labs: Laboratory Tests Test 03/05/21 00:30 03/05/21 07:31 03/05/21 10:04 03/05/21 11:45 Sodium Level 138 mmol/L (136-145) Potassium Level 3.6 mmol/L (3.5-5.1) Chloride Level 105 mmol/L (98-107) Carbon Dioxide Level 30 mmol/L (21-32) Anion Gap 3 (6-14) Blood Urea Nitrogen 13 mg/dL (8-26) Creatinine 1.1 mg/dL (0.7-1.3) Estimated GFR (Cockcroft-Gault) 68.8 Glucose Level 245 mg/dL (70-99) Calcium Level 7.8 mg/dL (8.5-10.1) Vancomycin Level Trough 14.9 mcg/mL (10.0-20.0) Vancomycin Last Dose Date Vancomycin Last Dose Time 1700 Glucose (Fingerstick) 200 mg/dL (70-99) 218 mg/dL (70-99) 237 mg/dL (70-99) Test 03/05/21 16:56 03/05/21 19:23 Glucose (Fingerstick) 184 mg/dL (70-99) 143 mg/dL (70-99) Assessment and Plan Assessmemt and Plan Problems Medical Problems: (1) Foot ulcer, left Status: Acute (2) HTN (hypertension) Status: Acute (3) New onset type 2 diabetes mellitus Status: Acute Postop Left foot incision and drainage, fifth metatarsal head and fifth proximal phalangeal base resection, wound VAC application, posterior splint application New diagnosis of diabetes (I suspect he has had this for many years) Probable Charcot's joint Plan Wound care IV antibiotics Insulin Home meds DVT prophylaxis Full code PT OT Long-term prognosis guarded Diabetic Appreciate Dr. Rock intervention Comment Review of Relevant I have reviewed the following items muriel (where applicable) has been applied. Medications: Current Medications Medications (Trade) Dose Ordered Sig/Vladimir Route PRN Reason Start Time Stop Time Status Last Admin Dose Admin Insulin Glargine (Lantus Syringe) 20 unit QHS SQ 03/04/21 21:00 03/04/21 21:21 Lactobacillus Rhamnosus (Culturelle) 1 cap BID PO 03/04/21 21:00 03/05/21 12:17 Ringer's Solution 1,000 ml @ 30 mls/hr Q24H IV 03/05/21 06:00 03/05/21 17:59 DC 03/05/21 08:00 Bupivacaine HCl/ Epinephrine Bitart (Sensorcain-Epi 0.25% Kit) 30 ml STK-MED ONCE INJ 03/05/21 09:20 03/05/21 09:36 DC 03/05/21 09:20 Insulin Human Lispro (HumaLOG VIAL for OP,RR ONLY) 0-10 units PRN Q1HR PRN SQ PER PROTOCOL 03/05/21 10:15 03/06/21 10:14 03/05/21 10:16 Justifications for Admission Other Justification MILA MATHEWS III DO Mar 05, 2021 20:38
[2021-03-05] MEDS: INSULIN GLARGINE SYRINGE. SQ SCH (21:16)
[2021-03-06] MEDS: PIPERACILLIN/TAZOBACTAM 4.5 GM in IV NORMAL SALINE 100ML 100 ML IV SCH ×3 (00:18→11:30)
[2021-03-06] MEDS: VANCOMYCIN 1.5 GM in IV NORMAL SALINE 500ML BAG 500 ML IV SCH ×2 (01:13→08:52)
[2021-03-06 03:00] VITALS: BP 132/69
[2021-03-06 07:00] VITALS: BP 171/107
[2021-03-06] MEDS: INSULIN LISPRO 300 UNITS/3 ML VIAL. SQ SCH ×3 (08:21→17:57)
[2021-03-06] MEDS: ASCORBIC ACID 500 MG TABLET PO SCH (08:52)
[2021-03-06] MEDS: MULTIVITAMIN with MINERAL TABLET. PO SCH (08:52)
[2021-03-06] MEDS: LACTOBACILLUS RHAMNOSUS GG 1 CAPSULE. PO SCH ×2 (08:52→20:53)
[2021-03-06 11:00] VITALS: BP 176/98
--- NOTE | 2021-03-06 11:46 | PDOC ---
[facility] [facility] PROGRESS NOTE Date of Service DOS: DATE: 03/06/21 TIME: 11:45 Chief Complaint Chief Complaint Postop Left foot incision and drainage, fifth metatarsal head and fifth proximal phalangeal base resection, wound VAC application, posterior splint application New diagnosis of diabetes (I suspect he has had this for many years) Probable Charcot's joint History of Present Illness History of Present Illness 03/06/2021 Patient seen and examined He has clean dry intact dressing on his right foot Discussed with RN Discussed with case management Chart reviewed He is scheduled to go back to surgery Wednesday for flap Vitals/I&O Vitals/I&O: Vital Signs Date Time Temp Pulse Resp B/P (MAP) Pulse Ox O2 Delivery O2 Flow Rate FiO2 03/06/21 08:52 103 171/107 03/06/21 08:00 Room Air 03/06/21 07:00 98.9 18 94 98.9 03/05/21 09:58 10 I & O 03/05/21 03/05/21 03/06/21 15:00 23:00 07:00 Intake Total 1120 ml 1200 ml 850 ml Output Total 10 ml 1200 ml 1000 ml Balance 1110 ml 0 ml -150 ml Physical Exam General: Alert, Cooperative Heart: Regular rate Lungs: Clear Abdomen: Normal bowel sounds Extremities: Other (Left foot with clean dry intact dressing) Skin: No rashes Labs Labs: Laboratory Tests Test 03/05/21 16:56 03/05/21 19:23 03/06/21 08:07 Glucose (Fingerstick) 184 mg/dL (70-99) 143 mg/dL (70-99) 327 mg/dL (70-99) Assessment and Plan Assessmemt and Plan Problems Medical Problems: (1) Foot ulcer, left Status: Acute (2) HTN (hypertension) Status: Acute (3) New onset type 2 diabetes mellitus Status: Acute Postop Left foot incision and drainage, fifth metatarsal head and fifth proximal phalangeal base resection, wound VAC application, posterior splint application New diagnosis of diabetes (I suspect he has had this for many years) Probable Charcot's joint Plan He is apparently scheduled to go back to surgery for a flap on Wednesday For now continue the following; Wound care IV antibiotics Insulin Home meds DVT prophylaxis Full code PT OT Diabetic education Trend labs Appreciate Dr. Rock intervention Comment Review of Relevant I have reviewed the following items muriel (where applicable) has been applied. Medications: Current Medications Medications (Trade) Dose Ordered Sig/Vladimir Route PRN Reason Start Time Stop Time Status Last Admin Dose Admin Multivitamins (Thera M Plus) 1 tab DAILY PO 03/06/21 09:00 03/06/21 08:52 Ascorbic Acid (Vitamin C) 500 mg DAILY PO 03/06/21 09:00 03/06/21 08:52 Justifications for Admission Other Justification MILA MATHEWS III DO Mar 06, 2021 11:46
[2021-03-06 14:39] LABS: CALCIUM 8.2 mg/dL (8.5-10.1); CREATININE 2.4 mg/dL (0.7-1.3); GFR 27.9; POTASSIUM 3.4 mmol/L (3.5-5.1)
[2021-03-06 15:00] VITALS: BP 176/97
[2021-03-06] MEDS: VANCOMYCIN PER PHARMACY MC PRN (15:36)
[2021-03-06] MEDS: IV NORMAL SALINE 1000ML BAG 1,000 ML IV SCH (16:33)
--- NOTE | 2021-03-06 17:32 | PDOC ---
PROGRESS NOTES Date of Service DATE: 03/06/21 TIME: 17:26 Subjective Subjective [DOS 03/05] left fifth metatarsal head and proximal base resection, I&D, wound VAC application, posterior splint Patient was seen at bedside. Denies overnight events or constitutional symptoms. The dressing/VAC has been kept clean and dry and tolerated well. Overnight drainage was minimal. The surgical foot is elevated on two pillows with the toes near the heart level. The pain is well managed with current medicine. Otherwise, patient has been working well with physical therapy. Patient was tested PCR Covid positive. Objective Objective Vital Signs Date Time Temp Pulse Resp B/P (MAP) Pulse Ox O2 Delivery O2 Flow Rate FiO2 03/06/21 11:00 97.9 103 18 176/98 (124) 96 Room Air 97.9 03/05/21 09:58 10 Intake and Output 03/06/21 07:00 Intake Total 3170 ml Output Total 2210 ml Balance 960 ml Intake Oral 770 ml IV Total 2400 ml Output Urine Total 2200 ml Estimated Blood Loss 10 ml # Bowel Movements 1 Physical Exam Physical Exam General: Pleasant without apparent distress, AOx3 Dermatology: -Dressing and VAC are intact without any strikethrough -Overnight drainage was minimal serosanguineous Vascular: -Foot is warm to touch with CFT less than 3 seconds x 5 Neurology: -Light touch sensation diminished to the level of digits 1 through 4 MSK: -Able to move digits 1 through 4 -Calf is soft and nontender Assessment Assessment Problems Medical Problems: (1) Foot ulcer, left Status: Acute (2) HTN (hypertension) Status: Acute (3) New onset type 2 diabetes mellitus Status: Acute Plan Plan of Care -Explained clinical findings. Intraoperative finding remarked necrotic changes limited to the plantar fifth metatarsal head without proximal streaking, tracking along the extensor/flexor tendons. There was no violation of the fourth intermetatarsal space or fourth MTPJ capsule. -IV antibiotics: Vancomycin and Zosyn currently -Blood culture 03/04: No growth to date -Intraoperative culture 03/05: No growth to date -Superficial wound swab 03/03: Proteus, E. coli, S.Oralis -Trend WBC daily -Appreciate internal medicine for medical optimization -Keep the dressing and VAC clean dry and intact -Strict nonweightbearing to the surgical foot -PT eval and treat Dispo: Plan for Wednesday repeat incision and drainage, rotational fifth digital flap to close the wound if intraoperative finding is insignificant for residual infection. Patient may benefit from outpatient antibiotic therapy as well. Comment Review of Relevant I have reviewed the following items muriel (where applicable) has been applied. Labs Laboratory Tests Test 03/04/21 20:35 03/05/21 00:30 03/05/21 07:31 03/05/21 10:04 Glucose (Fingerstick) 267 mg/dL (70-99) 200 mg/dL (70-99) 218 mg/dL (70-99) Sodium Level 138 mmol/L (136-145) Potassium Level 3.6 mmol/L (3.5-5.1) Chloride Level 105 mmol/L (98-107) Carbon Dioxide Level 30 mmol/L (21-32) Anion Gap 3 (6-14) Blood Urea Nitrogen 13 mg/dL (8-26) Creatinine 1.1 mg/dL (0.7-1.3) Estimated GFR (Cockcroft-Gault) 68.8 Glucose Level 245 mg/dL (70-99) Calcium Level 7.8 mg/dL (8.5-10.1) Vancomycin Level Trough 14.9 mcg/mL (10.0-20.0) Vancomycin Last Dose Date Vancomycin Last Dose Time 1700 Test 03/05/21 11:45 03/05/21 16:56 03/05/21 19:23 03/06/21 08:07 Glucose (Fingerstick) 237 mg/dL (70-99) 184 mg/dL (70-99) 143 mg/dL (70-99) 327 mg/dL (70-99) Test 03/06/21 11:44 03/06/21 14:20 03/06/21 17:03 Glucose (Fingerstick) 266 mg/dL (70-99) 201 mg/dL (70-99) Sodium Level 139 mmol/L (136-145) Potassium Level 3.4 mmol/L (3.5-5.1) Chloride Level 105 mmol/L (98-107) Carbon Dioxide Level 27 mmol/L (21-32) Anion Gap 7 (6-14) Blood Urea Nitrogen 17 mg/dL (8-26) Creatinine 2.4 mg/dL (0.7-1.3) Estimated GFR (Cockcroft-Gault) 27.9 Glucose Level 236 mg/dL (70-99) Calcium Level 8.2 mg/dL (8.5-10.1) Random Vancomycin Level 54.5 mcg/mL Laboratory Tests Test 03/05/21 19:23 03/06/21 08:07 03/06/21 11:44 03/06/21 14:20 Glucose (Fingerstick) 143 mg/dL (70-99) 327 mg/dL (70-99) 266 mg/dL (70-99) Sodium Level 139 mmol/L (136-145) Potassium Level 3.4 mmol/L (3.5-5.1) Chloride Level 105 mmol/L (98-107) Carbon Dioxide Level 27 mmol/L (21-32) Anion Gap 7 (6-14) Blood Urea Nitrogen 17 mg/dL (8-26) Creatinine 2.4 mg/dL (0.7-1.3) Estimated GFR (Cockcroft-Gault) 27.9 Glucose Level 236 mg/dL (70-99) Calcium Level 8.2 mg/dL (8.5-10.1) Random Vancomycin Level 54.5 mcg/mL Test 03/06/21 17:03 Glucose (Fingerstick) 201 mg/dL (70-99) Microbiology 03/05/21 Gram Stain - Final, Resulted 03/05/21 Aerobic and Anaerobic Culture - Preliminary, Resulted 03/04/21 Blood Culture - Preliminary, Resulted NO GROWTH AFTER 2 DAYS Medications Current Medications Sodium Chloride 1,000 ml @ 0 mls/hr 1X ONCE IV Last administered on 03/03/21at 20:39; Start 03/03/21 at 20:00; Stop 03/03/21 at 20:04; Status DC Piperacillin Sod/ Tazobactam Sod 4.5 gm/Sodium Chloride 100 ml @ 200 mls/hr 1X ONCE IV Last administered on 03/04/21at 00:28; Start 03/03/21 at 23:45; Stop 03/04/21 at 00:14; Status DC Vancomycin HCl 2 gm/Sodium Chloride 500 ml @ 250 mls/hr 1X ONCE IV Last admi nistered on 03/04/21at 00:28; Start 03/04/21 at 00:30; Stop 03/04/21 at 02:29; Status DC Vancomycin HCl (Vanco Per Pharmacy) 1 each PRN DAILY PRN MC SEE COMMENTS Last administered on 03/06/21at 15:36; Start 03/03/21 at 23:45; Stop 03/06/21 at 15:58; Status DC Lisinopril (Prinivil) 10 mg 1X ONCE PO Last administered on 03/04/21at 01:30; Start 03/04/21 at 01:30; Stop 03/04/21 at 01:31; Status DC Vancomycin HCl 1.5 gm/Sodium Chloride 500 ml @ 250 mls/hr Q8H IV Last administered on 03/06/21at 08:52; Start 03/04/21 at 09:00; Stop 03/06/21 at 15:58; Status DC Vancomycin HCl (Vancomycin Trough Level) 1 each 1X ONCE MC ; Start 03/05/21 at 00:30; Stop 03/05/21 at 00:31; Status DC Insulin Human Lispro (HumaLOG) 10 units TIDAC SQ Last administered on 02/24 05/16at 12:09; Start 03/04/21 at 11:30 Insulin Glargine (Lantus Syringe) 20 unit QHS SQ Last administered on 03/05/21at 21:16; Start 03/04/21 at 21:00 Amlodipine Besylate (Norvasc) 10 mg DAILY PO Last administered on 03/06/21at 08:52; Start 03/04/21 at 09:00 Piperacillin Sod/ Tazobactam Sod (Zosyn Per Pharmacy) 1 each PRN DAILY PRN MC SEE COMMENTS; Start 03/04/21 at 09:00; Stop 03/06/21 at 14:56; Status DC Piperacillin Sod/ Tazobactam Sod 4.5 gm/Sodium Chloride 100 ml @ 200 mls/hr Q6HRS IV Last administered on 03/06/21at 11:30; Start 03/04/21 at 09:00; Stop 03/06/21 at 14:57; Status DC Lactobacillus Rhamnosus (Culturelle) 1 cap BID PO Last administered on 03/06/21at 08:52; Start 03/04/21 at 21:00 Fentanyl Citrate (Fentanyl 2ml Vial) 25 mcg PRN Q5MIN PRN IVP MILD PAIN 1-3; Start 03/05/21 at 06:00; Stop 03/05/21 at 10:07; Status DC Fentanyl Citrate (Fentanyl 2ml Vial) 50 mcg PRN Q5MIN PRN IVP MODERATE PAIN 4- 6; Start 03/05/21 at 06:00; Stop 03/05/21 at 10:07; Status DC Morphine Sulfate (Morphine Sulfate) 1 mg PRN Q10MIN PRN IVP SEVERE PAIN 7-10; Start 03/05/21 at 06:00; Stop 03/06/21 at 05:59; Status DC Ringer's Solution 1,000 ml @ 30 mls/hr Q24H IV Last administered on 03/05/21at 08:00; Start 03/05/21 at 06:00; Stop 03/05/21 at 17:59; Status DC Hydromorphone HCl (Dilaudid) 0.5 mg PRN Q10MIN PRN IVP SEVERE PAIN 7-10, 2nd CHOICE; Start 03/05/21 at 06:00; Stop 03/05/21 at 10:07; Status DC Prochlorperazine Edisylate (Compazine) 5 mg PACU PRN PRN IVP NAUSEA, MRX1; Start 03/05/21 at 06:00; Stop 03/06/21 at 05:59; Status DC Bupivacaine HCl (Sensorcaine Mpf 0.25%) 30 ml STK-MED ONCE .ROUTE ; Start 03/05/21 at 07:11; Stop 03/05/21 at 07:12; Status DC Vancomycin HCl (Vancomycin) 1 gm STK-MED ONCE .ROUTE ; Start 03/05/21 at 07:11; Stop 03/05/21 at 07:12; Status DC Fentanyl Citrate (Fentanyl 2ml Vial) 100 mcg STK-MED ONCE .ROUTE ; Start 03/05/21 at 08:59; Stop 03/05/21 at 08:59; Status DC Bupivacaine HCl/ Epinephrine Bitart (Sensorcain-Epi 0.25% Kit) 30 ml STK-MED ONCE INJ Last administered on 03/05/21at 09:20; Start 03/05/21 at 09:20; Stop 03/05/21 at 09:36; Status DC Ondansetron HCl (Zofran) 4 mg STK-MED ONCE .ROUTE ; Start 03/05/21 at 09:27; Stop 03/05/21 at 09:27; Status DC Propofol (Diprivan) 200 mg STK-MED ONCE IV ; Start 03/05/21 at 09:27; Stop 03/05/21 at 09:27; Status DC Lidocaine HCl (Lidocaine Pf 2% Vial) 5 ml STK-MED ONCE .ROUTE ; Start 03/05/21 at 09:27; Stop 03/05/21 at 09:27; Status DC Ephedrine Sulfate (ePHEDrine PF IN SALINE SYRINGE) 50 mg STK-MED ONCE IV ; Start 03/05/21 at 09:34; Stop 03/05/21 at 09:34; Status DC Sevoflurane (Ultane) 30 ml STK-MED ONCE IH ; Start 03/05/21 at 09:44; Stop 03/05/21 at 09:45; Status DC Insulin Human Lispro (HumaLOG VIAL for OP,RR ONLY) 0-10 units PRN Q1HR PRN SQ PER PROTOCOL Last administered on 03/05/21at 10:16; Start 03/05/21 at 10:15; Stop 03/06/21 at 10:14; Status DC Multivitamins (Thera M Plus) 1 tab DAILY PO Last administered on 03/06/21at 08:52; Start 03/06/21 at 09:00 Ascorbic Acid (Vitamin C) 500 mg DAILY PO Last administered on 03/06/21at 08:52; Start 03/06/21 at 09:00 Piperacillin Sod/ Tazobactam Sod 3.375 gm/Sodium Chloride 50 ml @ 100 mls/hr Q6HRS IV ; Start 03/06/21 at 18:00 Linezolid (Zyvox) 600 mg BID PO ; Start 03/06/21 at 21:00 Sodium Chloride 1,000 ml @ 75 mls/hr [id number] IV Last administered on 03/06/21at 16:33; Start 03/06/21 at 16:00 Vitals/I & O Vital Sign - Last 24 Hours 03/05/21 03/05/21 03/05/21 03/06/21 19:00 20:05 23:00 03:00 Temp 97.8 97.9 97.8 97.8 97.9 97.8 Pulse 101 104 89 Resp 18 18 18 B/P (MAP) 159/93 (115) 148/89 (108) 132/69 (90) Pulse Ox 93 94 99 O2 Delivery Room Air Room Air Room Air Room Air 03/06/21 03/06/21 03/06/21 03/06/21 07:00 08:00 08:52 11:00 Temp 98.9 97.9 98.9 97.9 Pulse 103 103 103 Resp 18 18 B/P (MAP) 171/107 (128) 171/107 176/98 (124) Pulse Ox 94 96 O2 Delivery Room Air Room Air Room Air Intake and Output 03/05/21 03/05/21 03/06/21 15:00 23:00 07:00 Intake Total 1120 ml 1200 ml 850 ml Output Total 10 ml 1200 ml 1000 ml Balance 1110 ml 0 ml -150 ml Justifications for Admission Other Justification KATE CARMONA DPM Mar 06, 2021 17:32
[2021-03-06] MEDS: PIPERACILLIN/TAZOBACTAM 3.375 GM in IV NORMAL SALINE 50ML 50 ML IV SCH (17:34)
[2021-03-06 19:00] VITALS: BP 150/87
[2021-03-06] MEDS: LINEZOLID 600 MG TABLET PO SCH (20:53)
[2021-03-06] MEDS: INSULIN GLARGINE SYRINGE. SQ SCH (20:55)
[2021-03-06 23:00] VITALS: BP 159/92
[2021-03-07] MEDS: PIPERACILLIN/TAZOBACTAM 3.375 GM in IV NORMAL SALINE 50ML 50 ML IV SCH ×5 (00:29→23:33)
[2021-03-07] MEDS: IV NORMAL SALINE 1000ML BAG 1,000 ML IV SCH ×3 (05:29→23:44)
[2021-03-07 05:54] LABS: BASO % 0 % (0-3); EOS # 0.1 x10^3/uL (0.0-0.7); EOS % 1 % (0-3); HEMOGLOBIN 14.3 g/dL (13.0-17.5); LYMPH % 13 % (24-48); MEAN CORPUSCULAR HEMOGLOBIN 29 pg (25-35); MEAN CORPUSCULAR HGB CONC 33 g/dL (31-37); MEAN CORPUSCULAR VOLUME 91 fL (79-100); MONO # 1.3 x10^3/uL (0.0-1.1); MONO % 9 % (0-9); NEUT # 11.5 x10^3/uL (1.8-7.7); NEUT % 78 % (31-73); PLATELET COUNT 297 x10^3/uL (140-400); RED BLOOD COUNT 4.87 x10^6/uL (4.30-5.70); RED CELL DISTRIBUTION WIDTH 12.8 % (11.5-14.5); WHITE BLOOD COUNT 14.9 x10^3/uL (4.0-11.0)
[2021-03-07 06:01] LABS: CALCIUM 8.2 mg/dL (8.5-10.1); CREATININE 2.6 mg/dL (0.7-1.3); GFR 25.5; POTASSIUM 4.1 mmol/L (3.5-5.1)
[2021-03-07 07:00] VITALS: BP 182/104
[2021-03-07] MEDS: LINEZOLID 600 MG TABLET PO SCH ×2 (08:45→21:25)
[2021-03-07] MEDS: ASCORBIC ACID 500 MG TABLET PO SCH (08:45)
[2021-03-07] MEDS: LACTOBACILLUS RHAMNOSUS GG 1 CAPSULE. PO SCH ×2 (08:45→21:25)
[2021-03-07] MEDS: MULTIVITAMIN with MINERAL TABLET. PO SCH (08:46)
[2021-03-07] MEDS: INSULIN LISPRO 300 UNITS/3 ML VIAL. SQ SCH ×4 (08:56→17:30)
[2021-03-07] MEDS: hydroCHLOROthiazide 12.5 MG CAPSULE PO SCH (10:44)
--- NOTE | 2021-03-07 10:50 | NUR ---
SW following. Discussed with RN, pt from home, room air, amanda bocanegraet. Wound vac, COVID-19 positive. Surgery planned for tomorrow (03/08/21). SW will continue to follow.
[2021-03-07 11:00] VITALS: BP 178/108
--- NOTE | 2021-03-07 11:07 | PDOC2 ---
CONSULT Date of Consult Date of Consult DATE: 03/07/21 TIME: 11:00 Reason for Consult Reason for Consult: MYCHAL Referring Physician Referring Physician: BISI Identification/Chief Complaint Chief Complaint FOOT ULCER Source Source: Chart review, Patient History of Present Illness Reason for Visit: THIS IS A 60 YR OLD WITH LEFT FOOT ULCER. HAS HAD NECROTIC CHANGES TO HIS WOUND AT THE 5TH PLANTAR METATARSAL HEAD. HAS HAD I/D AND ANTIBIOTICS. NO CKD HX. CR NL ON ADMIT NOW UP TO 2.6. NON OLIGURIC. VAN LEVEL OVER 50. THIS HAS BEEN STOPPED. NO OTHER NEPHROTOXINS NOTED. HEMODYNAMICALLY STABLE. NO OTHER HX REPORTED Past Medical History Cardiovascular: HTN Pulmonary: No pertinent hx GI: Constipation Heme/Onc: No pertinent hx Hepatobiliary: No pertinent hx Psych: No pertinent hx Rheumatologic: No pertinent hx Infectious disease: No pertinent hx Renal/: No pertinent hx Endocrine: Diabetes Dermatology: No pertinent hx Past Surgical History Past Surgical History LEFT FOOT MET HEAD I/D 5TH TOE Social History <1 pack per day ALCOHOL: none Lives: Alone Current Problem List Problem List Problems Medical Problems: (1) Foot ulcer, left Status: Acute (2) HTN (hypertension) Status: Acute (3) New onset type 2 diabetes mellitus Status: Acute Current Medications Current Medications Current Medications Sodium Chloride 1,000 ml @ 0 mls/hr 1X ONCE IV Last administered on 03/03/21at 20:39; Start 03/03/21 at 20:00; Stop 03/03/21 at 20:04; Status DC Piperacillin Sod/ Tazobactam Sod 4.5 gm/Sodium Chloride 100 ml @ 200 mls/hr 1X ONCE IV Last administered on 03/04/21at 00:28; Start 03/03/21 at 23:45; Stop 03/04/21 at 00:14; Status DC Vancomycin HCl 2 gm/Sodium Chloride 500 ml @ 250 mls/hr 1X ONCE IV Last administered on 03/04/21at 00:28; Start 03/04/21 at 00:30; Stop 03/04/21 at 02:29; Status DC Vancomycin HCl (Vanco Per Pharmacy) 1 each PRN DAILY PRN MC SEE COMMENTS Last administered on 03/06/21at 15:36; Start 03/03/21 at 23:45; Stop 03/06/21 at 15:58; Status DC Lisinopril (Prinivil) 10 mg 1X ONCE PO Last administered on 03/04/21at 01:30; Start 03/04/21 at 01:30; Stop 03/04/21 at 01:31; Status DC Vancomycin HCl 1.5 gm/Sodium Chloride 500 ml @ 250 mls/hr Q8H IV Last administered on 03/06/21at 08:52; Start 03/04/21 at 09:00; Stop 03/06/21 at 15:58; Status DC Vancomycin HCl (Vancomycin Trough Level) 1 each 1X ONCE MC ; Start 03/05/21 at 00:30; Stop 03/05/21 at 00:31; Status DC Insulin Human Lispro (HumaLOG) 10 units TIDAC SQ Last administered on 03/07/21at 08:56; Start 03/04/21 at 11:30 Insulin Glargine (Lantus Syringe) 20 unit QHS SQ Last administered on 03/06/21at 20:55; Start 03/04/21 at 21:00 Amlodipine Besylate (Norvasc) 10 mg DAILY PO Last administered on 03/07/21at 08:46; Start 03/04/21 at 09:00 Piperacillin Sod/ Tazobactam Sod (Zosyn Per Pharmacy) 1 each PRN DAILY PRN MC SEE COMMENTS; Start 03/04/21 at 09:00; Stop 03/06/21 at 14:56; Status DC Piperacillin Sod/ Tazobactam Sod 4.5 gm/Sodium Chloride 100 ml @ 200 mls/hr Q6HRS IV Last administered on 03/06/21at 11:30; Start 03/04/21 at 09:00; Stop 03/06/21 at 14:57; Status DC Lactobacillus Rhamnosus (Culturelle) 1 cap BID PO Last administered on 03/07at 08:45; Start 03/04/21 at 21:00 Fentanyl Citrate (Fentanyl 2ml Vial) 25 mcg PRN Q5MIN PRN IVP MILD PAIN 1-3; Start 03/05/21 at 06:00; Stop 03/05/21 at 10:07; Status DC Fentanyl Citrate (Fentanyl 2ml Vial) 50 mcg PRN Q5MIN PRN IVP MODERATE PAIN 4- 6; Start 03/05/21 at 06:00; Stop 03/05/21 at 10:07; Status DC Morphine Sulfate (Morphine Sulfate) 1 mg PRN Q10MIN PRN IVP SEVERE PAIN 7-10; Start 03/05/21 at 06:00; Stop 03/06/21 at 05:59; Status DC Ringer's Solution 1,000 ml @ 30 mls/hr Q24H IV Last administered on 03/05/21at 08:00; Start 03/05/21 at 06:00; Stop 03/05/21 at 17:59; Status DC Hydromorphone HCl (Dilaudid) 0.5 mg PRN Q10MIN PRN IVP SEVERE PAIN 7-10, 2nd CHOICE; Start 03/05/21 at 06:00; Stop 03/05/21 at 10:07; Status DC Prochlorperazine Edisylate (Compazine) 5 mg PACU PRN PRN IVP NAUSEA, MRX1; Start 03/05/21 at 06:00; Stop 03/06/21 at 05:59; Status DC Bupivacaine HCl (Sensorcaine Mpf 0.25%) 30 ml STK-MED ONCE .ROUTE ; Start 03/05/21 at 07:11; Stop 03/05/21 at 07:12; Status DC Vancomycin HCl (Vancomycin) 1 gm STK-MED ONCE .ROUTE ; Start 03/05/21 at 07:11; Stop 03/05/21 at 07:12; Status DC Fentanyl Citrate (Fentanyl 2ml Vial) 100 mcg STK-MED ONCE .ROUTE ; Start 03/05/21 at 08:59; Stop 03/05/21 at 08:59; Status DC Bupivacaine HCl/ Epinephrine Bitart (Sensorcain-Epi 0.25% Kit) 30 ml STK-MED ONCE INJ Last administered on 03/05/21at 09:20; Start 03/05/21 at 09:20; Stop 03/05/21 at 09:36; Status DC Ondansetron HCl (Zofran) 4 mg STK-MED ONCE .ROUTE ; Start 03/05/21 at 09:27; Stop 03/05/21 at 09:27; Status DC Propofol (Diprivan) 200 mg STK-MED ONCE IV ; Start 03/05/21 at 09:27; Stop 03/05/21 at 09:27; Status DC Lidocaine HCl (Lidocaine Pf 2% Vial) 5 ml STK-MED ONCE .ROUTE ; Start 03/05/21 at 09:27; Stop 03/05/21 at 09:27; Status DC Ephedrine Sulfate (ePHEDrine PF IN SALINE SYRINGE) 50 mg STK-MED ONCE IV ; Start 03/05/21 at 09:34; Stop 03/05/21 at 09:34; Status DC Sevoflurane (Ultane) 30 ml STK-MED ONCE IH ; Start 03/05/21 at 09:44; Stop 03/05/21 at 09:45; Status DC Insulin Human Lispro (HumaLOG VIAL for OP,RR ONLY) 0-10 units PRN Q1HR PRN SQ PER PROTOCOL Last administered on 03/05/21at 10:16; Start 03/05/21 at 10:15; Stop 03/06/21 at 10:14; Status DC Multivitamins (Thera M Plus) 1 tab DAILY PO Last administered on 03/07/21at 08:46; Start 03/06/21 at 09:00 Ascorbic Acid (Vitamin C) 500 mg DAILY PO Last administered on 03/07/21at 08 :45; Start 03/06/21 at 09:00 Piperacillin Sod/ Tazobactam Sod 3.375 gm/Sodium Chloride 50 ml @ 100 mls/hr Q6HRS IV Last administered on 03/07/21at 05:29; Start 03/06/21 at 18:00 Linezolid (Zyvox) 600 mg BID PO Last administered on 03/07/21at 08:45; Start 03/06/21 at 21:00 Sodium Chloride 1,000 ml @ 75 mls/hr [id number] IV Last administered on 03/07/21at 05:29; Start 03/06/21 at 16:00 Hydrochlorothiazide (Microzide) 12.5 mg DAILY PO Last administered on 03/07/21at 10:44; Start 03/07/21 at 10:30 Allergies Allergies: Coded Allergies: No Known Drug Allergies (Unverified , 03/03/21) ROS General: YES: Fatigue, Malaise, Appetite Eyes: Yes Decreased vision HEENT: YES: Heacaches Respiratory: YES: Cough Genitourinary: YES Other (CLEAR URINE) Musculoskeletal: Yes Joint Pain, Yes Muscular Weakness Neurological: Yes Weakness Skin: Yes Dry Skin Physical Exam General: Alert, Oriented X3, Cooperative, No acute distress HEENT: Atraumatic, PERRLA Lungs: Clear to auscultation Heart: Regular rate Abdomen: Normal bowel sounds Extremities: No clubbing, Other (LEFT FOOT BANDAGED) Skin: No breakdown Neuro: Normal speech MUSCULOSKELETAL: No swelling, Other (LLE FOOT EDEMA) Vitals VITALS Vital Signs Date Time Temp Pulse Resp B/P (MAP) Pulse Ox O2 Delivery O2 Flow Rate FiO2 03/07/21 08:46 92 182/104 03/07/21 07:00 98.7 18 94 98.7 03/06/21 23:00 Room Air Labs Labs Laboratory Tests Test 03/05/21 11:45 03/05/21 16:56 03/05/21 19:23 03/06/21 08:07 Glucose (Fingerstick) 237 mg/dL (70-99) 184 mg/dL (70-99) 143 mg/dL (70-99) 327 mg/dL (70-99) Test 03/06/21 11:44 03/06/21 14:20 03/06/21 17:03 03/06/21 20:38 Glucose (Fingerstick) 266 mg/dL (70-99) 201 mg/dL (70-99) 270 mg/dL (70-99) Sodium Level 139 mmol/L (136-145) Potassium Level 3.4 mmol/L (3.5-5.1) Chloride Level 105 mmol/L (98-107) Carbon Dioxide Level 27 mmol/L (21-32) Anion Gap 7 (6-14) Blood Urea Nitrogen 17 mg/dL (8-26) Creatinine 2.4 mg/dL (0.7-1.3) Estimated GFR (Cockcroft-Gault) 27.9 Glucose Level 236 mg/dL (70-99) Calcium Level 8.2 mg/dL (8.5-10.1) Random Vancomycin Level 54.5 mcg/mL Test 03/07/21 04:20 03/07/21 07:46 White Blood Count 14.9 x10^3/uL (4.0-11.0) Red Blood Count 4.87 x10^6/uL (4.30-5.70) Hemoglobin 14.3 g/dL (13.0-17.5) Hematocrit 44.0 % (39.0-53.0) Mean Corpuscular Volume 91 fL (79-100) Mean Corpuscular Hemoglobin 29 pg (25-35) Mean Corpuscular Hemoglobin Concent 33 g/dL (31-37) Red Cell Distribution Width 12.8 % (11.5-14.5) Platelet Count 297 x10^3/uL (140-400) Neutrophils (%) (Auto) 78 % (31-73) Lymphocytes (%) (Auto) 13 % (24-48) Monocytes (%) (Auto) 9 % (0-9) Eosinophils (%) (Auto) 1 % (0-3) Basophils (%) (Auto) 0 % (0-3) Neutrophils # (Auto) 11.5 x10^3/uL (1.8-7.7) Lymphocytes # (Auto) 2.0 x10^3/uL (1.0-4.8) Monocytes # (Auto) 1.3 x10^3/uL (0.0-1.1) Eosinophils # (Auto) 0.1 x10^3/uL (0.0-0.7) Basophils # (Auto) 0.0 x10^3/uL (0.0-0.2) Sodium Level 141 mmol/L (136-145) Potassium Level 4.1 mmol/L (3.5-5.1) Chloride Level 106 mmol/L (98-107) Carbon Dioxide Level 29 mmol/L (21-32) Anion Gap 6 (6-14) Blood Urea Nitrogen 18 mg/dL (8-26) Creatinine 2.6 mg/dL (0.7-1.3) Estimated GFR (Cockcroft-Gault) 25.5 Glucose Level 318 mg/dL (70-99) Calcium Level 8.2 mg/dL (8.5-10.1) Phosphorus Level 4.6 mg/dL (2.6-4.7) Glucose (Fingerstick) 296 mg/dL (70-99) Laboratory Tests Test 03/06/21 11:44 03/06/21 14:20 03/06/21 17:03 03/06/21 20:38 Glucose (Fingerstick) 266 mg/dL (70-99) 201 mg/dL (70-99) 270 mg/dL (70-99) Sodium Level 139 mmol/L (136-145) Potassium Level 3.4 mmol/L (3.5-5.1) Chloride Level 105 mmol/L (98-107) Carbon Dioxide Level 27 mmol/L (21-32) Anion Gap 7 (6-14) Blood Urea Nitrogen 17 mg/dL (8-26) Creatinine 2.4 mg/dL (0.7-1.3) Estimated GFR (Cockcroft-Gault) 27.9 Glucose Level 236 mg/dL (70-99) Calcium Level 8.2 mg/dL (8.5-10.1) Random Vancomycin Level 54.5 mcg/mL Test 03/07/21 04:20 03/07/21 07:46 White Blood Count 14.9 x10^3/uL (4.0-11.0) Red Blood Count 4.87 x10^6/uL (4.30-5.70) Hemoglobin 14.3 g/dL (13.0-17.5) Hematocrit 44.0 % (39.0-53.0) Mean Corpuscular Volume 91 fL (79-100) Mean Corpuscular Hemoglobin 29 pg (25-35) Mean Corpuscular Hemoglobin Concent 33 g/dL (31-37) Red Cell Distribution Width 12.8 % (11.5-14.5) Platelet Count 297 x10^3/uL (140-400) Neutrophils (%) (Auto) 78 % (31-73) Lymphocytes (%) (Auto) 13 % (24-48) Monocytes (%) (Auto) 9 % (0-9) Eosinophils (%) (Auto) 1 % (0-3) Basophils (%) (Auto) 0 % (0-3) Neutrophils # (Auto) 11.5 x10^3/uL (1.8-7.7) Lymphocytes # (Auto) 2.0 x10^3/uL (1.0-4.8) Monocytes # (Auto) 1.3 x10^3/uL (0.0-1.1) Eosinophils # (Auto) 0.1 x10^3/uL (0.0-0.7) Basophils # (Auto) 0.0 x10^3/uL (0.0-0.2) Sodium Level 141 mmol/L (136-145) Potassium Level 4.1 mmol/L (3.5-5.1) Chloride Level 106 mmol/L (98-107) Carbon Dioxide Level 29 mmol/L (21-32) Anion Gap 6 (6-14) Blood Urea Nitrogen 18 mg/dL (8-26) Creatinine 2.6 mg/dL (0.7-1.3) Estimated GFR (Cockcroft-Gault) 25.5 Glucose Level 318 mg/dL (70-99) Calcium Level 8.2 mg/dL (8.5-10.1) Phosphorus Level 4.6 mg/dL (2.6-4.7) Glucose (Fingerstick) 296 mg/dL (70-99) Assessment/Plan Assessment/Plan IMP MYCHAL-SUSPICIOUS FOR INTERSTITIAL NEPHRITIS-PROB VANCOMYCIN RELATED LEFT FOOT MET HEAD WOUND/NECROSIS S/P I/D DM II HTN PLAN RENAL SONOGRAM CHECK UA HYDRATION LABS IN - DIANNA NIX MD Mar 07, 2021 11:07
--- NOTE | 2021-03-07 14:23 | RAD ---
EXAM: RENAL ULTRASOUND CLINICAL HISTORY: Acute renal failure COMPARISON: None available. TECHNIQUE: Ultrasound examination of the bilateral kidneys and urinary bladder was performed. FINDINGS: The right kidney measures 12.8 x 5.8 x 6.4 cm. The left kidney measures 12.6 x 5.0 x 6.9 cm. There is a 2.4 cm hypoechogenicity identified in the inferior pole of the left kidney. Urinary bladder is mil dly distended. IMPRESSION: 2.4 cm hypoechogenicity identified in the inferior pole the left kidney could be a cyst or cystic les ion. Consider CT urogram for further evaluation. Electronically signed by: Grant Kaur MD (03/07/2021 2:21 PM) [id number]
[2021-03-07 15:00] VITALS: BP 157/93
--- NOTE | 2021-03-07 16:04 | PDOC ---
PROGRESS NOTES Date of Service: DATE: 03/07/21 TIME: 16:01 Chief Complaint Chief Complaint Postop Left foot incision and drainage, fifth metatarsal head and fifth proximal phalangeal base resection, wound VAC application, posterior splint application New diagnosis of diabetes (I suspect he has had this for many years) Probable Charcot's joint Acute renal failure secondary to vasomotor etiology Plan Renal ultrasound Renal electrolyte Renal creatinine Follow recommendations from erp consultant as follows: -IV antibiotics: Vancomycin and Zosyn currently -Blood culture 03/04: No growth to date -Intraoperative culture 03/05: No growth to date -Superficial wound swab 03/03: Proteus, E. coli, S.Oralis -Trend WBC daily -Appreciate internal medicine for medical optimization -Keep the dressing and VAC clean dry and intact -Strict nonweightbearing to the surgical foot -PT eval and treat Dispo: Plan for Wednesday repeat incision and drainage, rotational fifth digital flap to close the wound if intraoperative finding is insignificant for residual infection. Patient may benefit from outpatient antibiotic therapy as well. Vancomycin has been transitioned to linezolid Follow urinary output History of Present Illness History of Present Illness 03/07/2021 No acute events reported overnight, case discussed with nursing staff patient in no acute distress no complaints during my visit No pain reported Patient feels much better Discussed results of his laboratory data with increase in creatinine, reassurance was provided 03/06/2021 Patient seen and examined He has clean dry intact dressing on his right foot Discussed with RN Discussed with case management Chart reviewed He is scheduled to go back to surgery Wednesday for flap Vitals Vitals Vital Signs Date Time Temp Pulse Resp B/P (MAP) Pulse Ox O2 Delivery O2 Flow Rate FiO2 03/07/21 15:00 98.0 110 18 157/93 (114) 95 98.0 03/06/21 23:00 Room Air Physical Exam General: Alert, Oriented X3, Cooperative, No acute distress Heart: Regular rate Lungs: Clear Abdomen: Normal bowel sounds Extremities: No clubbing, Other (LEFT FOOT BANDAGED) Skin: No breakdown Labs LABS Laboratory Tests Test 03/06/21 17:03 03/06/21 20:38 03/07/21 04:20 03/07/21 07:46 Glucose (Fingerstick) 201 mg/dL (70-99) 270 mg/dL (70-99) 296 mg/dL (70-99) White Blood Count 14.9 x10^3/uL (4.0-11.0) Red Blood Count 4.87 x10^6/uL (4.30-5.70) Hemoglobin 14.3 g/dL (13.0-17.5) Hematocrit 44.0 % (39.0-53.0) Mean Corpuscular Volume 91 fL (79-100) Mean Corpuscular Hemoglobin 29 pg (25-35) Mean Corpuscular Hemoglobin Concent 33 g/dL (31-37) Red Cell Distribution Width 12.8 % (11.5-14.5) Platelet Count 297 x10^3/uL (140-400) Neutrophils (%) (Auto) 78 % (31-73) Lymphocytes (%) (Auto) 13 % (24-48) Monocytes (%) (Auto) 9 % (0-9) Eosinophils (%) (Auto) 1 % (0-3) Basophils (%) (Auto) 0 % (0-3) Neutrophils # (Auto) 11.5 x10^3/uL (1.8-7.7) Lymphocytes # (Auto) 2.0 x10^3/uL (1.0-4.8) Monocytes # (Auto) 1.3 x10^3/uL (0.0-1.1) Eosinophils # (Auto) 0.1 x10^3/uL (0.0-0.7) Basophils # (Auto) 0.0 x10^3/uL (0.0-0.2) Sodium Level 141 mmol/L (136-145) Potassium Level 4.1 mmol/L (3.5-5.1) Chloride Level 106 mmol/L (98-107) Carbon Dioxide Level 29 mmol/L (21-32) Anion Gap 6 (6-14) Blood Urea Nitrogen 18 mg/dL (8-26) Creatinine 2.6 mg/dL (0.7-1.3) Estimated GFR (Cockcroft-Gault) 25.5 Glucose Level 318 mg/dL (70-99) Calcium Level 8.2 mg/dL (8.5-10.1) Phosphorus Level 4.6 mg/dL (2.6-4.7) Test 03/07/21 09:58 03/07/21 12:48 Urine Random Creatinine 19.3 mg/dL (Not Establ.) Glucose (Fingerstick) 291 mg/dL (70-99) Review of Systems Review of Systems Review of systems pertinent as per HPI otherwise 14 point review of system is negative Assessment and Plan Assessmemt and Plan Problems Medical Problems: (1) Foot ulcer, left Status: Acute (2) HTN (hypertension) Status: Acute (3) New onset type 2 diabetes mellitus Status: Acute Comment Review of Relevant I have reviewed the following items muriel (where applicable) has been applied. Labs Laboratory Tests Test 03/05/21 16:56 03/05/21 19:23 03/06/21 08:07 03/06/21 11:44 Glucose (Fingerstick) 184 mg/dL (70-99) 143 mg/dL (70-99) 327 mg/dL (70-99) 266 mg/dL (70-99) Test 03/06/21 14:20 03/06/21 17:03 03/06/21 20:38 03/07/21 04:20 Sodium Level 139 mmol/L (136-145) 141 mmol/L (136-145) Potassium Level 3.4 mmol/L (3.5-5.1) 4.1 mmol/L (3.5-5.1) Chloride Level 105 mmol/L (98-107) 106 mmol/L (98-107) Carbon Dioxide Level 27 mmol/L (21-32) 29 mmol/L (21-32) Anion Gap 7 (6-14) 6 (6-14) Blood Urea Nitrogen 17 mg/dL (8-26) 18 mg/dL (8-26) Creatinine 2.4 mg/dL (0.7-1.3) 2.6 mg/dL (0.7-1.3) Estimated GFR (Cockcroft-Gault) 27.9 25.5 Glucose Level 236 mg/dL (70-99) 318 mg/dL (70-99) Calcium Level 8.2 mg/dL (8.5-10.1) 8.2 mg/dL (8.5-10.1) Random Vancomycin Level 54.5 mcg/mL Glucose (Fingerstick) 201 mg/dL (70-99) 270 mg/dL (70-99) White Blood Count 14.9 x10^3/uL (4.0-11.0) Red Blood Count 4.87 x10^6/uL (4.30-5.70) Hemoglobin 14.3 g/dL (13.0-17.5) Hematocrit 44.0 % (39.0-53.0) Mean Corpuscular Volume 91 fL (79-100) Mean Corpuscular Hemoglobin 29 pg (25-35) Mean Corpuscular Hemoglobin Concent 33 g/dL (31-37) Red Cell Distribution Width 12.8 % (11.5-14.5) Platelet Count 297 x10^3/uL (140-400) Neutrophils (%) (Auto) 78 % (31-73) Lymphocytes (%) (Auto) 13 % (24-48) Monocytes (%) (Auto) 9 % (0-9) Eosinophils (%) (Auto) 1 % (0-3) Basophils (%) (Auto) 0 % (0-3) Neutrophils # (Auto) 11.5 x10^3/uL (1.8-7.7) Lymphocytes # (Auto) 2.0 x10^3/uL (1.0-4.8) Monocytes # (Auto) 1.3 x10^3/uL (0.0-1.1) Eosinophils # (Auto) 0.1 x10^3/uL (0.0-0.7) Basophils # (Auto) 0.0 x10^3/uL (0.0-0.2) Phosphorus Level 4.6 mg/dL (2.6-4.7) Test 03/07/21 07:46 03/07/21 09:58 03/07/21 12:48 Glucose (Fingerstick) 296 mg/dL (70-99) 291 mg/dL (70-99) Urine Random Creatinine 19.3 mg/dL (Not Establ.) Laboratory Tests Test 03/06/21 17:03 03/06/21 20:38 03/07/21 04:20 03/07/21 07:46 Glucose (Fingerstick) 201 mg/dL (70-99) 270 mg/dL (70-99) 296 mg/dL (70-99) White Blood Count 14.9 x10^3/uL (4.0-11.0) Red Blood Count 4.87 x10^6/uL (4.30-5.70) Hemoglobin 14.3 g/dL (13.0-17.5) Hematocrit 44.0 % (39.0-53.0) Mean Corpuscular Volume 91 fL (79-100) Mean Corpuscular Hemoglobin 29 pg (25-35) Mean Corpuscular Hemoglobin Concent 33 g/dL (31-37) Red Cell Distribution Width 12.8 % (11.5-14.5) Platelet Count 297 x10^3/uL (140-400) Neutrophils (%) (Auto) 78 % (31-73) Lymphocytes (%) (Auto) 13 % (24-48) Monocytes (%) (Auto) 9 % (0-9) Eosinophils (%) (Auto) 1 % (0-3) Basophils (%) (Auto) 0 % (0-3) Neutrophils # (Auto) 11.5 x10^3/uL (1.8-7.7) Lymphocytes # (Auto) 2.0 x10^3/uL (1.0-4.8) Monocytes # (Auto) 1.3 x10^3/uL (0.0-1.1) Eosinophils # (Auto) 0.1 x10^3/uL (0.0-0.7) Basophils # (Auto) 0.0 x10^3/uL (0.0-0.2) Sodium Level 141 mmol/L (136-145) Potassium Level 4.1 mmol/L (3.5-5.1) Chloride Level 106 mmol/L (98-107) Carbon Dioxide Level 29 mmol/L (21-32) Anion Gap 6 (6-14) Blood Urea Nitrogen 18 mg/dL (8-26) Creatinine 2.6 mg/dL (0.7-1.3) Estimated GFR (Cockcroft-Gault) 25.5 Glucose Level 318 mg/dL (70-99) Calcium Level 8.2 mg/dL (8.5-10.1) Phosphorus Level 4.6 mg/dL (2.6-4.7) Test 03/07/21 09:58 03/07/21 12:48 Urine Random Creatinine 19.3 mg/dL (Not Establ.) Glucose (Fingerstick) 291 mg/dL (70-99) Microbiology 03/05/21 Gram Stain - Final, Resulted 03/05/21 Aerobic and Anaerobic Culture - Preliminary, Resulted 03/04/21 Blood Culture - Preliminary, Resulted NO GROWTH AFTER 3 DAYS Medications Current Medications Sodium Chloride 1,000 ml @ 0 mls/hr 1X ONCE IV Last administered on 03/03/21at 20:39; Start 03/03/21 at 20:00; Stop 03/03/21 at 20:04; Status DC Piperacillin Sod/ Tazobactam Sod 4.5 gm/Sodium Chloride 100 ml @ 200 mls/hr 1X ONCE IV Last administered on 03/04/21at 00:28; Start 03/03/21 at 23:45; Stop 03/04/21 at 00:14; Status DC Vancomycin HCl 2 gm/Sodium Chloride 500 ml @ 250 mls/hr 1X ONCE IV Last administered on 03/04/21at 00:28; Start 03/04/21 at 00:30; Stop 03/04/21 at 02:29; Status DC Vancomycin HCl (Vanco Per Pharmacy) 1 each PRN DAILY PRN MC SEE COMMENTS Last administered on 03/06/21at 15:36; Start 03/03/21 at 23:45; Stop 03/06/21 at 15:58; Status DC Lisinopril (Prinivil) 10 mg 1X ONCE PO Last administered on 03/04/21at 01:30; Start 03/04/21 at 01:30; Stop 03/04/21 at 01:31; Status DC Vancomycin HCl 1.5 gm/Sodium Chloride 500 ml @ 250 mls/hr Q8H IV Last administered on 03/06/21at 08:52; Start 03/04/21 at 09:00; Stop 03/06/21 at 15:58; Status DC Vancomycin HCl (Vancomycin Trough Level) 1 each 1X ONCE MC ; Start 03/05/21 at 00:30; Stop 03/05/21 at 00:31; Status DC Insulin Human Lispro (HumaLOG) 10 units TIDAC SQ Last administered on 03/07/21at 12:53; Start 03/04/21 at 11:30 Insulin Glargine (Lantus Syringe) 20 unit QHS SQ Last administered on 03/06/21at 20:55; Start 03/04/21 at 21:00; Stop 03/07/21 at 13:52; Status DC Amlodipine Besylate (Norvasc) 10 mg DAILY PO Last administered on 03/07/21at 08:46; Start 03/04/21 at 09:00 Piperacillin Sod/ Tazobactam Sod (Zosyn Per Pharmacy) 1 each PRN DAILY PRN MC SEE COMMENTS; Start 03/04/21 at 09:00; Stop 03/06/21 at 14:56; Status DC Piperacillin Sod/ Tazobactam Sod 4.5 gm/Sodium Chloride 100 ml @ 200 mls/hr Q6HRS IV Last administered on 03/06/21at 11:30; Start 03/04/21 at 09:00; Stop 03/06/21 at 14:57; Status DC Lactobacillus Rhamnosus (Culturelle) 1 cap BID PO Last administered on 03/07/21at 08:45; Start 03/04/21 at 21:00 Fentanyl Citrate (Fentanyl 2ml Vial) 25 mcg PRN Q5MIN PRN IVP MILD PAIN 1-3; Start 03/05/21 at 06:00; Stop 03/05/21 at 10:07; Status DC Fentanyl Citrate (Fentanyl 2ml Vial) 50 mcg PRN Q5MIN PRN IVP MODERATE PAIN 4- 6; Start 03/05/21 at 06:00; Stop 03/05/21 at 10:07; Status DC Morphine Sulfate (Morphine Sulfate) 1 mg PRN Q10MIN PRN IVP SEVERE PAIN 7-10; Start 03/05/21 at 06:00; Stop 03/06/21 at 05:59; Status DC Ringer's Solution 1,000 ml @ 30 mls/hr Q24H IV Last administered on 03/05/21at 08:00; Start 03/05/21 at 06:00; Stop 03/05/21 at 17:59; Status DC Hydromorphone HCl (Dilaudid) 0.5 mg PRN Q10MIN PRN IVP SEVERE PAIN 7-10, 2nd CHOICE; Start 03/05/21 at 06:00; Stop 03/05/21 at 10:07; Status DC Prochlorperazine Edisylate (Compazine) 5 mg PACU PRN PRN IVP NAUSEA, MRX1; Start 03/05/21 at 06:00; Stop 03/06/21 at 05:59; Status DC Bupivacaine HCl (Sensorcaine Mpf 0.25%) 30 ml STK-MED ONCE .ROUTE ; Start 03/05/21 at 07:11; Stop 03/05/21 at 07:12; Status DC Vancomycin HCl (Vancomycin) 1 gm STK-MED ONCE .ROUTE ; Start 03/05/21 at 07:11; Stop 03/05/21 at 07:12; Status DC Fentanyl Citrate (Fentanyl 2ml Vial) 100 mcg STK-MED ONCE .ROUTE ; Start 03/05/21 at 08:59; Stop 03/05/21 at 08:59; Status DC Bupivacaine HCl/ Epinephrine Bitart (Sensorcain-Epi 0.25% Kit) 30 ml STK-MED ONCE INJ Last administered on 03/05/21at 09:20; Start 03/05/21 at 09:20; Stop 03/05/21 at 09:36; Status DC Ondansetron HCl (Zofran) 4 mg STK-MED ONCE .ROUTE ; Start 03/05/21 at 09:27; Stop 03/05/21 at 09:27; Status DC Propofol (Diprivan) 200 mg STK-MED ONCE IV ; Start 03/05/21 at 09:27; Stop 03/05/21 at 09:27; Status DC Lidocaine HCl (Lidocaine Pf 2% Vial) 5 ml STK-MED ONCE .ROUTE ; Start 03/05/21 at 09:27; Stop 03/05/21 at 09:27; Status DC Ephedrine Sulfate (ePHEDrine PF IN SALINE SYRINGE) 50 mg STK-MED ONCE IV ; Start 03/05/21 at 09:34; Stop 03/05/21 at 09:34; Status DC Sevoflurane (Ultane) 30 ml STK-MED ONCE IH ; Start 03/05/21 at 09:44; Stop 03/05/21 at 09:45; Status DC Insulin Human Lispro (HumaLOG VIAL for OP,RR ONLY) 0-10 units PRN Q1HR PRN SQ PER PROTOCOL Last administered on 03/05/21at 10:16; Start 03/05/21 at 10:15; Stop 03/06/21 at 10:14; Status DC Multivitamins (Thera M Plus) 1 tab DAILY PO Last administered on 03/07/21at 08:46; Start 03/06/21 at 09:00 Ascorbic Acid (Vitamin C) 500 mg DAILY PO Last administered on 03/07/21at 08:45; Start 03/06/21 at 09:00 Piperacillin Sod/ Tazobactam Sod 3.375 gm/Sodium Chloride 50 ml @ 100 mls/hr Q6HRS IV Last administered on 03/07/21at 12:52; Start 03/06/21 at 18:00 Linezolid (Zyvox) 600 mg BID PO Last administered on 03/07/21at 08:45; Start 03/06/21 at 21:00 Sodium Chloride 1,000 ml @ 125 mls/hr Q8H IV Last administered on 03/07/21at 05:29; Start 03/06/21 at 16:00 Hydrochlorothiazide (Microzide) 12.5 mg DAILY PO Last administered on 03/07/21at 10:44; Start 03/07/21 at 10:30 Insulin Glargine (Lantus Syringe) 12 unit BID SQ ; Start 03/07/21 at 21:00 Insulin Human Lispro (HumaLOG) 0-7 UNITS TIDWMEALS SQ ; Start 03/07/21 at 17:00 Vitals/I & O Vital Sign - Last 24 Hours 03/06/21 03/06/21 03/06/21 03/07/21 19:00 20:15 23:00 07:00 Temp 98.9 98.4 98.7 98.9 98.4 98.7 Pulse 99 99 92 Resp 22 18 18 B/P (MAP) 150/87 (108) 159/92 (114) 182/104 (130) Pulse Ox 96 93 94 O2 Delivery Room Air Room Air Room Air 03/07/21 03/07/21 03/07/21 08:46 11:00 15:00 Temp 98.3 98.0 98.3 98.0 Pulse 92 103 110 Resp 18 18 B/P (MAP) 182/104 178/108 (131) 157/93 (114) Pulse Ox 97 95 Intake and Output 03/06/21 03/06/21 03/07/21 15:00 23:00 07:00 Intake Total 600 ml 50 ml 450 ml Output Total 100 ml 1350 ml Balance 500 ml 50 ml -900 ml Justicifation of Admission Dx: Justifications for Admission: Justification of Admission Dx: Yes Acute Renal Failure: 3-Fold Rise in Serum Crea FARELA,CINDY MD Mar 07, 2021 16:04
[2021-03-07 16:55] LABS: BILIRUBIN,URINE NEGATIVE (NEG); CLARITY,URINE CLEAR; COLOR,URINE YELLOW; NITRITE,URINE NEGATIVE (NEG); PROTEIN,URINE NEGATIVE (NEG-TRACE); UROBILINOGEN,URINE 0.2 mg/dL (0.2 mg/dL)
[2021-03-07 17:08] LABS: BACTERIA,URINE 0 /HPF (0-FEW)
[2021-03-07] MEDS ORDERED: INSULIN LISPRO 300 UNITS/3 ML VIAL. SQ ONE (17:30)
--- NOTE | 2021-03-07 18:14 | PATHOLOGY ---
[facility] Accession Number: [id number] . 01 Material submitted: . PART A: toe - LEFT 5TH METATARSAL HEAD PROXIMAL INKED FOR OSTEO RULE OUT. Modifiers: left, fifth PART B: toe - LEFT 5TH TOE PROXIMAL INKED FOR OSTEO RULE OUT. Modifiers: left, fifth . 01 Clinical history: . OSTEOMYELITIS LEFT 5TH TOE FOR AMPUTATION, I/D . 02 Diagnosis: A. Segment of bone and articular cartilage with focal attached fibrous and synovial tissue, left fifth metatarsal head: - Negative for acute osteomyelitis. . B. Segment of bone and articular cartilage with focal attached fibrous and synovial tissue, left fifth toe: - Focal mild acute osteomyelitis. (JPM:bernardo; 03/07/2021) QMS 03/07/2021 1718 Local . 02 Electronically signed: . Randall Reyes MD, Pathologist NPI- [id number] . 01 Gross description: . A. Received in formalin labeled "Jeff Porras, left 5th metatarsal head proximal inked for osteomyelitis rule out" is a convex cartilage covered bone fragment measuring 2.1 x 1.6 x 1.3 cm. The convex aspect is smooth and cartilage covered and the opposite aspect is roughened and consistent with a surgical margin. The roughened aspect displays scant ink, consistent with proximal, and is subsequently inked black. [employer] System Installer cross sections are submitted in cassette A1 following decalcification. . B. Received in formalin labeled "Jeff Porras, #2 fifth toe proximal margin inked for rule out" and further labeled on the requisition as "osteo rule out" is a concave cartilage covered bone fragment measuring 1.5 x 1.5 x 0.9 cm. The concave aspect is smooth and cartilage covered and the opposite aspect is roughened and consistent with a surgical margin. The roughened aspect displays scant ink, consistent with proximal, and is subsequently inked black. Fire Control System Installer cross-sections are submitted in cassette B1 following decalcification. ([facility] [place]; 03/06/2021) [facility] 03/07/2021 1612 Local . 02 Pathologist provided ICD-10: M86.172 . 02 CPT . 472228, 945719, 085144, 211330 Specimen Comment: A courtesy copy of this report has been sent to [phone], [phone] Specimen Comment: [id number] Specimen Comment: Report sent to / DR FALLON Performed at: 01 [facility] [address], [place], [place] [id number] MD Rogerio Vega MD Phone: [phone] Performed at: 02 [facility] [address], [place] [id number] MD Randall Reyes MD Phone: [phone]
[2021-03-07 19:00] VITALS: BP 159/88
[2021-03-07 23:00] VITALS: BP 152/93
[2021-03-07 23:08] LABS: UR POTASSIUM 9.7 mmol/L (Not Estab.)
[2021-03-07] MEDS: INSULIN GLARGINE SYRINGE. SQ SCH (23:43)
[2021-03-08 03:00] VITALS: BP 162/100
[2021-03-08] MEDS: PIPERACILLIN/TAZOBACTAM 3.375 GM in IV NORMAL SALINE 50ML 50 ML IV SCH ×4 (05:53→23:15)
[2021-03-08] MEDS ORDERED: fentaNYL PF VIAL 100 MCG/2 ML VIAL IVP PRN ×2 (06:00)
[2021-03-08] MEDS ORDERED: PROCHLORPERAZINE 10 MG/2 ML VIAL. IVP PRN (06:00)
[2021-03-08] MEDS ORDERED: MORPHINE SULFATE 2 MG/ML INJ. IVP PRN (06:00)
[2021-03-08] MEDS ORDERED: HYDROmorphone 2 MG/ML VIAL IVP PRN (06:00)
[2021-03-08] MEDS ORDERED: IV RINGERS,LACTATED 1000ML 1,000 ML IV SCH (06:00)
[2021-03-08 07:00] VITALS: BP 184/111
[2021-03-08 07:18] LABS: BASO # 0.1 x10^3/uL (0.0-0.2); BASO % 0 % (0-3); EOS # 0.2 x10^3/uL (0.0-0.7); EOS % 1 % (0-3); HEMOGLOBIN 15.2 g/dL (13.0-17.5); LYMPH # 2.2 x10^3/uL (1.0-4.8); LYMPH % 13 % (24-48); MEAN CORPUSCULAR HEMOGLOBIN 30 pg (25-35); MEAN CORPUSCULAR HGB CONC 33 g/dL (31-37); MEAN CORPUSCULAR VOLUME 90 fL (79-100); MONO # 1.4 x10^3/uL (0.0-1.1); MONO % 8 % (0-9); NEUT # 12.8 x10^3/uL (1.8-7.7); NEUT % 77 % (31-73); PLATELET COUNT 326 x10^3/uL (140-400); RED CELL DISTRIBUTION WIDTH 13.1 % (11.5-14.5); WHITE BLOOD COUNT 16.6 x10^3/uL (4.0-11.0)
[2021-03-08] MEDS: INSULIN LISPRO 300 UNITS/3 ML VIAL. SQ SCH ×6 (07:30→17:55)
[2021-03-08] MEDS ORDERED: PROPOFOL 10 MG/ML (20ML) VIAL. IV ONE (07:39)
[2021-03-08] MEDS ORDERED: ONDANSETRON PF 4 MG/2 ML VIAL. ONE (07:39)
[2021-03-08] MEDS ORDERED: DEXAMETHASONE SOD PHOS 4 MG/ML VIAL ONE (07:39)
[2021-03-08] MEDS ORDERED: LIDOCAINE 2% PF 5 ML VIAL. ONE (07:39)
[2021-03-08] MEDS ORDERED: PHENYLEPHRINE in 0.9% NACL PF 1 MG/10 ML SYRINGE. IV ONE (07:39)
[2021-03-08] MEDS ORDERED: fentaNYL PF VIAL 100 MCG/2 ML VIAL ONE ×2 (07:41→09:36)
[2021-03-08] MEDS ORDERED: SUCCINYLCHOLINE 200 MG/10 ML VIAL. ONE (07:42)
[2021-03-08] MEDS ORDERED: FAMOTIDINE 20 MG/2 ML VIAL ONE (07:42)
[2021-03-08 07:56] LABS: CALCIUM 8.7 mg/dL (8.5-10.1); CREATININE 2.7 mg/dL (0.7-1.3); GFR 24.4; POTASSIUM 4.2 mmol/L (3.5-5.1)
[2021-03-08] MEDS ORDERED: SEVOFLURANE 31 TO 60 MINUTES. IH ONE (09:04)
[2021-03-08] MEDS ORDERED: SEVOFLURANE 61 TO 120 MINUTES. IH ONE (09:33)
[2021-03-08] MEDS ORDERED: MORPHINE SULFATE 2 MG/ML INJ. ONE (09:36)
[2021-03-08] MEDS ORDERED: ONDANSETRON PF 4 MG/2 ML VIAL. IVP PRN (10:00)
[2021-03-08] MEDS ORDERED: DEXTROSE 50% 25 GM / 50ML DISP.SYRIN. IV PRN (10:00)
[2021-03-08] MEDS ORDERED: HYDROcodone/APAP 5/325MG 1 TAB TABLET PO PRN (10:00)
--- NOTE | 2021-03-08 10:05 | PDOC4 ---
OPERATIVE NOTE Date: Date: Mar 08, 2021 Pre-Op Diagnosis: Prior left fifth metatarsal phalangeal joint incision and drainage in the setting of full-thickness ulcer to the fifth metatarsal head, cellulitis in the setting of possible radiographic osteomyelitis Post-Op Diagnosis: Same as above Procedure Performed: Left fifth ray incision and drainage, fifth digit amputation, delayed primary closure Surgeon: Kate Carmona DPM Anesthesia Type: General Blood Loss: 5 cc Specimans Obtained: Fifth digit and clear margin of the distal fifth metatarsal shaft, left Findings: Firm and healthy fifth metatarsal osseous stump without proximal tracking, violation to the fourth intermetatarsal space or necrotic changes to the wound bed. The skin flaps were adequately perfused however minimally macerated Complications: None Operative Note: Patient was brought into the operating room and placed on the operating table in a supine position. A timeout was performed to confirm patient's identity, locat ion of surgery and procedure. After induction of general anesthesia, a pneumatic left high ankle tourniquet was placed with pressure set 250 mmHg. The left lower extremity was then scrubbed, prepped and draped in the usual sterile manner. The left lower extremity was elevated for gravity exsanguination and the tourniquet was inflated to 250 mmHg. Then the attention was directed to the left distal MTPJ. Wound bed was insignificant for necrotic or purulent changes. There was no proximal tracking, violation to the fourth MTPJ. The wound flap and skin margins were refreshed with a #15 blade to healthy granular tissue. Manual skin reapproximation remarked to moderate skin tension. Then the decision was made to the skeletonize the fifth digit and used a digital flap to close the distal fifth metatarsal head wound. Then a linear incision was made at the plantar lateral aspect of the fifth digit down to periosteum. The fifth phalanges were removed in total while preserving healthy granular/subcutaneous tissue on the skin flap. The fifth digit was passed down to the back table with the proximal margin inked for osteomyelitis rule out. Then a small wafer was taken from the distal fifth metatarsal stump and with the proximal margin inked for osteomyelitis rule out. Then copious saline solution consisted of 3 L of normal saline was used to irrigate the surgical wound. Post washout inspection was insignificant for purulence, necrotic tissue or proximal tracking at the wound bed. Then a post washout swab was collected for anaerobes, aerobes. Then the deep tissue was reapproximated to close off the space with 3-0 Vicryl. The skin was closed under minimal to no tension with 3-0 nylon. The distal fifth distal flap was rotated plantarly and laterally to close the deficit. The excessive soft tissue flap was excised. Tourniquet was deflated and adequate flap perfusion was noted. However the dorsal lateral skin flap was minimal maceration and slightly fragile. However there no signs of dehiscence or suture failure. The surgical site was dressed with Betadine soaked Adaptic, 4 x 4. The left lower extremity was immobilized in a well-padded Vinson compression splint with ankle held in near 90 degrees. Patient tolerated procedure anesthesia well with vital signs stable and neurovascular status intact. Patient was then transferred to PACU for continued recovery. Pending left foot 3 view x-ray. Plan for Wednesday skin check and possible application of a total contact Cast. Strict nonweightbearing to left lower extremity, elevate the toes above the nose, ice behind the knee as needed. Pending pathology report, but clinically, the infection was limited to soft tissue. So 2 to 4 weeks of outpatient antibiotic therapy would be adequate unless the bone pathology returned positive for osteomyelitis. KATE CARMONA DPM Mar 08, 2021 10:05
[2021-03-08 10:11] LABS: % BANDS 1 % (0-9); % LYMPHS 10 % (24-48); % MONOS 4 % (0-10); % SEGS 85 % (35-66); PLT ESTIMATE ADEQUATE (ADEQUATE)
[2021-03-08] MEDS: MULTIVITAMIN with MINERAL TABLET. PO SCH (10:31)
[2021-03-08] MEDS: ASCORBIC ACID 500 MG TABLET PO SCH (10:31)
[2021-03-08] MEDS: hydroCHLOROthiazide 12.5 MG CAPSULE PO SCH (10:31)
[2021-03-08] MEDS: LINEZOLID 600 MG TABLET PO SCH ×2 (10:31→22:09)
[2021-03-08] MEDS: LACTOBACILLUS RHAMNOSUS GG 1 CAPSULE. PO SCH ×2 (10:32→22:09)
[2021-03-08] MEDS: INSULIN GLARGINE SYRINGE. SQ SCH ×2 (10:32→23:14)
[2021-03-08] MEDS: IV NORMAL SALINE 1000ML BAG 1,000 ML IV SCH ×3 (10:33→23:43)
[2021-03-08 11:00] VITALS: BP 169/104
--- NOTE | 2021-03-08 11:15 | RAD ---
Left foot 3 views: Reason for examination: Postop. Recovering in OR now. Patient is Covid positive. Comparison is made to previous study dated 03/14/2020. Examination is compromised by splinting material. There has been amputation of the fifth digit from t he midshaft of the fifth metatarsal bone distally. No acute fracture or dislocation is seen. Bone den sity is normal. Remaining joint spaces appear to be maintained. IMPRESSION: Amputation of the fifth digit from the mid shaft of the fifth metatarsal bone distally. Electronically signed by: Azalea Owens MD (03/08/2021 11:12 AM) [id number]
[2021-03-08 15:00] VITALS: BP 150/105
--- NOTE | 2021-03-08 15:12 | PDOC ---
PROGRESS NOTES Date of Service: DATE: 03/08/21 TIME: 15:01 Chief Complaint Chief Complaint Postop Left foot incision and drainage, fifth metatarsal head and fifth proximal phalangeal base resection, wound VAC application, posterior splint application New diagnosis of diabetes (I suspect he has had this for many years) Probable Charcot's joint Acute renal failure secondary to vasomotor etiology vs interstitial nephritis probably vancomycin related Hypernatremia Plan encourage free water intake Renal ultrasound reviewed Follow recommendations from development consultant as follows: -Blood culture 03/04: No growth to date -Intraoperative culture 03/05: No growth to date -Superficial wound swab 03/03: Proteus, E. coli, S.Oralis -Trend WBC daily -Appreciate internal medicine for medical optimization -Keep the dressing and VAC clean dry and intact -Strict nonweightbearing to the surgical foot -PT eval and treat Dispo: Plan for Wednesday repeat incision and drainage, rotational fifth digital flap to close the wound if intraoperative finding is insignificant for residual infection. Patient may benefit from outpatient antibiotic therapy as well. Vancomycin has been transitioned to linezolid Follow urinary output hopefully discharge in the next 24 to 48 hours. History of Present Illness History of Present Illness 03/07/2021 No acute events reported overnight, case discussed with nursing staff patient in no acute distress no complaints during my visit No pain reported Patient feels much better Discussed results of his laboratory data with increase in creatinine, reassurance was provided 03/06/2021 Patient seen and examined He has clean dry intact dressing on his right foot Discussed with RN Discussed with case management Chart reviewed He is scheduled to go back to surgery Wednesday for flap Vitals Vitals Vital Signs Date Time Temp Pulse Resp B/P (MAP) Pulse Ox O2 Delivery O2 Flow Rate FiO2 03/08/21 11:00 98.9 99 18 169/104 (125) 90 98.9 03/08/21 10:15 Room Air 03/08/21 10:00 6 Physical Exam General: Alert, Oriented X3, Cooperative, No acute distress Heart: Regular rate Lungs: Clear Abdomen: Normal bowel sounds Extremities: No clubbing, Other (LEFT FOOT BANDAGED) Skin: No breakdown Labs LABS Laboratory Tests Test 03/07/21 15:44 03/07/21 17:05 03/07/21 20:11 03/08/21 05:05 Urine Collection Type Unknown Urine Color Yellow Urine Clarity Clear Urine pH 5.0 (<5.0-8.0) Urine Specific [place] <=1.005 (1.000-1.030) Urine Protein Negative mg/dL (NEG-TRACE) Urine Glucose (UA) 250 mg/dL (NEG) Urine Ketones (Stick) Negative mg/dL (NEG) Urine Blood Small (NEG) Urine Nitrite Negative (NEG) Urine Bilirubin Negative (NEG) Urine Urobilinogen Dipstick 0.2 mg/dL (0.2 mg/dL) Urine Leukocyte Esterase Negative (NEG) Urine RBC 3-5 /HPF (0-2) Urine WBC 1-4 /HPF (0-4) Urine Squamous Epithelial Cells Occ /LPF Urine Bacteria 0 /HPF (0-FEW) Urine Mucus Slight /LPF Glucose (Fingerstick) 417 mg/dL (70-99) 203 mg/dL (70-99) Sodium Level 148 mmol/L (136-145) Potassium Level 4.2 mmol/L (3.5-5.1) Chloride Level 108 mmol/L (98-107) Carbon Dioxide Level 29 mmol/L (21-32) Anion Gap 11 (6-14) Blood Urea Nitrogen 23 mg/dL (8-26) Creatinine 2.7 mg/dL (0.7-1.3) Estimated GFR (Cockcroft-Gault) 24.4 Glucose Level 122 mg/dL (70-99) Calcium Level 8.7 mg/dL (8.5-10.1) Test 03/08/21 06:05 03/08/21 07:54 03/08/21 11:44 White Blood Count 16.6 x10^3/uL (4.0-11.0) Red Blood Count 5.10 x10^6/uL (4.30-5.70) Hemoglobin 15.2 g/dL (13.0-17.5) Hematocrit 46.0 % (39.0-53.0) Mean Corpuscular Volume 90 fL (79-100) Mean Corpuscular Hemoglobin 30 pg (25-35) Mean Corpuscular Hemoglobin Concent 33 g/dL (31-37) Red Cell Distribution Width 13.1 % (11.5-14.5) Platelet Count 326 x10^3/uL (140-400) Neutrophils (%) (Auto) 77 % (31-73) Lymphocytes (%) (Auto) 13 % (24-48) Monocytes (%) (Auto) 8 % (0-9) Eosinophils (%) (Auto) 1 % (0-3) Basophils (%) (Auto) 0 % (0-3) Neutrophils # (Auto) 12.8 x10^3/uL (1.8-7.7) Lymphocytes # (Auto) 2.2 x10^3/uL (1.0-4.8) Monocytes # (Auto) 1.4 x10^3/uL (0.0-1.1) Eosinophils # (Auto) 0.2 x10^3/uL (0.0-0.7) Basophils # (Auto) 0.1 x10^3/uL (0.0-0.2) Segmented Neutrophils % 85 % (35-66) Band Neutrophils % 1 % (0-9) Lymphocytes % 10 % (24-48) Monocytes % 4 % (0-10) Platelet Estimate Adequate (ADEQUATE) Creatine Kinase 22 U/L (39-308) Glucose (Fingerstick) 169 mg/dL (70-99) 183 mg/dL (70-99) Assessment and Plan Assessmemt and Plan Problems Medical Problems: (1) Foot ulcer, left Status: Acute (2) HTN (hypertension) Status: Acute (3) New onset type 2 diabetes mellitus Status: Acute Comment Review of Relevant I have reviewed the following items muriel (where applicable) has been applied. Labs Laboratory Tests Test 03/06/21 17:03 03/06/21 20:38 03/07/21 04:20 03/07/21 07:46 Glucose (Fingerstick) 201 mg/dL (70-99) 270 mg/dL (70-99) 296 mg/dL (70-99) White Blood Count 14.9 x10^3/uL (4.0-11.0) Red Blood Count 4.87 x10^6/uL (4.30-5.70) Hemoglobin 14.3 g/dL (13.0-17.5) Hematocrit 44.0 % (39.0-53.0) Mean Corpuscular Volume 91 fL (79-100) Mean Corpuscular Hemoglobin 29 pg (25-35) Mean Corpuscular Hemoglobin Concent 33 g/dL (31-37) Red Cell Distribution Width 12.8 % (11.5-14.5) Platelet Count 297 x10^3/uL (140-400) Neutrophils (%) (Auto) 78 % (31-73) Lymphocytes (%) (Auto) 13 % (24-48) Monocytes (%) (Auto) 9 % (0-9) Eosinophils (%) (Auto) 1 % (0-3) Basophils (%) (Auto) 0 % (0-3) Neutrophils # (Auto) 11.5 x10^3/uL (1.8-7.7) Lymphocytes # (Auto) 2.0 x10^3/uL (1.0-4.8) Monocytes # (Auto) 1.3 x10^3/uL (0.0-1.1) Eosinophils # (Auto) 0.1 x10^3/uL (0.0-0.7) Basophils # (Auto) 0.0 x10^3/uL (0.0-0.2) Sodium Level 141 mmol/L (136-145) Potassium Level 4.1 mmol/L (3.5-5.1) Chloride Level 106 mmol/L (98-107) Carbon Dioxide Level 29 mmol/L (21-32) Anion Gap 6 (6-14) Blood Urea Nitrogen 18 mg/dL (8-26) Creatinine 2.6 mg/dL (0.7-1.3) Estimated GFR (Cockcroft-Gault) 25.5 Glucose Level 318 mg/dL (70-99) Calcium Level 8.2 mg/dL (8.5-10.1) Phosphorus Level 4.6 mg/dL (2.6-4.7) Test 03/07/21 09:58 03/07/21 12:48 03/07/21 15:44 03/07/21 17:05 Urine Random Creatinine 19.3 mg/dL (Not Establ.) Urine Sodium 67 mmol/L (Not Estab.) Urine Potassium 9.7 mmol/L (Not Estab.) Urine Chloride 54 mmol/L (Not Estab.) Glucose (Fingerstick) 291 mg/dL (70-99) 417 mg/dL (70-99) Urine Collection Type Unknown Urine Color Yellow Urine Clarity Clear Urine pH 5.0 (<5.0-8.0) Urine Specific [place] <=1.005 (1.000-1.030) Urine Protein Negative mg/dL (NEG-TRACE) Urine Glucose (UA) 250 mg/dL (NEG) Urine Ketones (Stick) Negative mg/dL (NEG) Urine Blood Small (NEG) Urine Nitrite Negative (NEG) Urine Bilirubin Negative (NEG) Urine Urobilinogen Dipstick 0.2 mg/dL (0.2 mg/dL) Urine Leukocyte Esterase Negative (NEG) Urine RBC 3-5 /HPF (0-2) Urine WBC 1-4 /HPF (0-4) Urine Squamous Epithelial Cells Occ /LPF Urine Bacteria 0 /HPF (0-FEW) Urine Mucus Slight /LPF Test 03/07/21 20:11 03/08/21 05:05 03/08/21 06:05 03/08/21 07:54 Glucose (Fingerstick) 203 mg/dL (70-99) 169 mg/dL (70-99) Sodium Level 148 mmol/L (136-145) Potassium Level 4.2 mmol/L (3.5-5.1) Chloride Level 108 mmol/L (98-107) Carbon Dioxide Level 29 mmol/L (21-32) Anion Gap 11 (6-14) Blood Urea Nitrogen 23 mg/dL (8-26) Creatinine 2.7 mg/dL (0.7-1.3) Estimated GFR (Cockcroft-Gault) 24.4 Glucose Level 122 mg/dL (70-99) Calcium Level 8.7 mg/dL (8.5-10.1) White Blood Count 16.6 x10^3/uL (4.0-11.0) Red Blood Count 5.10 x10^6/uL (4.30-5.70) Hemoglobin 15.2 g/dL (13.0-17.5) Hematocrit 46.0 % (39.0-53.0) Mean Corpuscular Volume 90 fL (79-100) Mean Corpuscular Hemoglobin 30 pg (25-35) Mean Corpuscular Hemoglobin Concent 33 g/dL (31-37) Red Cell Distribution Width 13.1 % (11.5-14.5) Platelet Count 326 x10^3/uL (140-400) Neutrophils (%) (Auto) 77 % (31-73) Lymphocytes (%) (Auto) 13 % (24-48) Monocytes (%) (Auto) 8 % (0-9) Eosinophils (%) (Auto) 1 % (0-3) Basophils (%) (Auto) 0 % (0-3) Neutrophils # (Auto) 12.8 x10^3/uL (1.8-7.7) Lymphocytes # (Auto) 2.2 x10^3/uL (1.0-4.8) Monocytes # (Auto) 1.4 x10^3/uL (0.0-1.1) Eosinophils # (Auto) 0.2 x10^3/uL (0.0-0.7) Basophils # (Auto) 0.1 x10^3/uL (0.0-0.2) Segmented Neutrophils % 85 % (35-66) Band Neutrophils % 1 % (0-9) Lymphocytes % 10 % (24-48) Monocytes % 4 % (0-10) Platelet Estimate Adequate (ADEQUATE) Creatine Kinase 22 U/L (39-308) Test 03/08/21 11:44 Glucose (Fingerstick) 183 mg/dL (70-99) Laboratory Tests Test 03/07/21 15:44 03/07/21 17:05 03/07/21 20:11 03/08/21 05:05 Urine Collection Type Unknown Urine Color Yellow Urine Clarity Clear Urine pH 5.0 (<5.0-8.0) Urine Specific [place] <=1.005 (1.000-1.030) Urine Protein Negative mg/dL (NEG-TRACE) Urine Glucose (UA) 250 mg/dL (NEG) Urine Ketones (Stick) Negative mg/dL (NEG) Urine Blood Small (NEG) Urine Nitrite Negative (NEG) Urine Bilirubin Negative (NEG) Urine Urobilinogen Dipstick 0.2 mg/dL (0.2 mg/dL) Urine Leukocyte Esterase Negative (NEG) Urine RBC 3-5 /HPF (0-2) Urine WBC 1-4 /HPF (0-4) Urine Squamous Epithelial Cells Occ /LPF Urine Bacteria 0 /HPF (0-FEW) Urine Mucus Slight /LPF Glucose (Fingerstick) 417 mg/dL (70-99) 203 mg/dL (70-99) Sodium Level 148 mmol/L (136-145) Potassium Level 4.2 mmol/L (3.5-5.1) Chloride Level 108 mmol/L (98-107) Carbon Dioxide Level 29 mmol/L (21-32) Anion Gap 11 (6-14) Blood Urea Nitrogen 23 mg/dL (8-26) Creatinine 2.7 mg/dL (0.7-1.3) Estimated GFR (Cockcroft-Gault) 24.4 Glucose Level 122 mg/dL (70-99) Calcium Level 8.7 mg/dL (8.5-10.1) Test 03/08/21 06:05 03/08/21 07:54 03/08/21 11:44 White Blood Count 16.6 x10^3/uL (4.0-11.0) Red Blood Count 5.10 x10^6/uL (4.30-5.70) Hemoglobin 15.2 g/dL (13.0-17.5) Hematocrit 46.0 % (39.0-53.0) Mean Corpuscular Volume 90 fL (79-100) Mean Corpuscular Hemoglobin 30 pg (25-35) Mean Corpuscular Hemoglobin Concent 33 g/dL (31-37) Red Cell Distribution Width 13.1 % (11.5-14.5) Platelet Count 326 x10^3/uL (140-400) Neutrophils (%) (Auto) 77 % (31-73) Lymphocytes (%) (Auto) 13 % (24-48) Monocytes (%) (Auto) 8 % (0-9) Eosinophils (%) (Auto) 1 % (0-3) Basophils (%) (Auto) 0 % (0-3) Neutrophils # (Auto) 12.8 x10^3/uL (1.8-7.7) Lymphocytes # (Auto) 2.2 x10^3/uL (1.0-4.8) Monocytes # (Auto) 1.4 x10^3/uL (0.0-1.1) Eosinophils # (Auto) 0.2 x10^3/uL (0.0-0.7) Basophils # (Auto) 0.1 x10^3/uL (0.0-0.2) Segmented Neutrophils % 85 % (35-66) Band Neutrophils % 1 % (0-9) Lymphocytes % 10 % (24-48) Monocytes % 4 % (0-10) Platelet Estimate Adequate (ADEQUATE) Creatine Kinase 22 U/L (39-308) Glucose (Fingerstick) 169 mg/dL (70-99) 183 mg/dL (70-99) Microbiology 03/05/21 Gram Stain - Final, Resulted 03/05/21 Aerobic and Anaerobic Culture - Preliminary, Resulted 03/04/21 Blood Culture - Preliminary, Resulted NO GROWTH AFTER 3 DAYS Medications Current Medications Sodium Chloride 1,000 ml @ 0 mls/hr 1X ONCE IV Last administered on 03/03/21at 20:39; Start 03/03/21 at 20:00; Stop 03/03/21 at 20:04; Status DC Piperacillin Sod/ Tazobactam Sod 4.5 gm/Sodium Chloride 100 ml @ 200 mls/hr 1X ONCE IV Last administered on 03/04/21at 00:28; Start 03/03/21 at 23:45; Stop 03/04/21 at 00:14; Status DC Vancomycin HCl 2 gm/Sodium Chloride 500 ml @ 250 mls/hr 1X ONCE IV Last administered on 03/04/21at 00:28; Start 03/04/21 at 00:30; Stop 03/04/21 at 02:29 ; Status DC Vancomycin HCl (Vanco Per Pharmacy) 1 each PRN DAILY PRN MC SEE COMMENTS Last administered on 03/06/21at 15:36; Start 03/03/21 at 23:45; Stop 03/06/21 at 15:58; Status DC Lisinopril (Prinivil) 10 mg 1X ONCE PO Last administered on 03/04/21at 01:30; Start 03/04/21 at 01:30; Stop 03/04/21 at 01:31; Status DC Vancomycin HCl 1.5 gm/Sodium Chloride 500 ml @ 250 mls/hr Q8H IV Last administered on 03/06/21at 08:52; Start 03/04/21 at 09:00; Stop 03/06/21 at 15:58; Status DC Vancomycin HCl (Vancomycin Trough Level) 1 each 1X ONCE MC ; Start 03/05/21 at 00:30; Stop 03/05/21 at 00:31; Status DC Insulin Human Lispro (HumaLOG) 10 units TIDAC SQ Last administered on 03/08/21at 12:13; Start 03/04/21 at 11:30 Insulin Glargine (Lantus Syringe) 20 unit QHS SQ Last administered on 03/06/21at 20:55; Start 03/04/21 at 21:00; Stop 03/07/21 at 13:52; Status DC Amlodipine Besylate (Norvasc) 10 mg DAILY PO Last administered on 03/08/21at 10:32; Start 03/04/21 at 09:00 Piperacillin Sod/ Tazobactam Sod (Zosyn Per Pharmacy) 1 each PRN DAILY PRN MC SEE COMMENTS; Start 03/04/21 at 09:00; Stop 03/06/21 at 14:56; Status DC Piperacillin Sod/ Tazobactam Sod 4.5 gm/Sodium Chloride 100 ml @ 200 mls/hr Q6HRS IV Last administered on 03/06/21at 11:30; Start 03/04/21 at 09:00; Stop 03/06/21 at 14:57; Status DC Lactobacillus Rhamnosus (Culturelle) 1 cap BID PO Last administered on at 10:32; Start 03/04/21 at 21:00 Fentanyl Citrate (Fentanyl 2ml Vial) 25 mcg PRN Q5MIN PRN IVP MILD PAIN 1-3; Start 03/05/21 at 06:00; Stop 03/05/21 at 10:07; Status DC Fentanyl Citrate (Fentanyl 2ml Vial) 50 mcg PRN Q5MIN PRN IVP MODERATE PAIN 4-6 ; Start 03/05/21 at 06:00; Stop 03/05/21 at 10:07; Status DC Morphine Sulfate (Morphine Sulfate) 1 mg PRN Q10MIN PRN IVP SEVERE PAIN 7-10; Start 03/05/21 at 06:00; Stop 03/06/21 at 05:59; Status DC Ringer's Solution 1,000 ml @ 30 mls/hr Q24H IV Last administered on 03/05/21at 08:00; Start 03/05/21 at 06:00; Stop 03/05/21 at 17:59; Status DC Hydromorphone HCl (Dilaudid) 0.5 mg PRN Q10MIN PRN IVP SEVERE PAIN 7-10, 2nd CHOICE; Start 03/05/21 at 06:00; Stop 03/05/21 at 10:07; Status DC Prochlorperazine Edisylate (Compazine) 5 mg PACU PRN PRN IVP NAUSEA, MRX1; Start 03/05/21 at 06:00; Stop 03/06/21 at 05:59; Status DC Bupivacaine HCl (Sensorcaine Mpf 0.25%) 30 ml STK-MED ONCE .ROUTE ; Start 03/05/21 at 07:11; Stop 03/05/21 at 07:12; Status DC Vancomycin HCl (Vancomycin) 1 gm STK-MED ONCE .ROUTE ; Start 03/05/21 at 07:11; Stop 03/05/21 at 07:12; Status DC Fentanyl Citrate (Fentanyl 2ml Vial) 100 mcg STK-MED ONCE .ROUTE ; Start 03/05/21 at 08:59; Stop 03/05/21 at 08:59; Status DC Bupivacaine HCl/ Epinephrine Bitart (Sensorcain-Epi 0.25% Kit) 30 ml STK-MED ONCE INJ Last administered on 03/05/21at 09:20; Start 03/05/21 at 09:20; Stop 03/05/21 at 09:36; Status DC Ondansetron HCl (Zofran) 4 mg STK-MED ONCE .ROUTE ; Start 03/05/21 at 09:27; Stop 03/05/21 at 09:27; Status DC Propofol (Diprivan) 200 mg STK-MED ONCE IV ; Start 03/05/21 at 09:27; Stop 03/05/21 at 09:27; Status DC Lidocaine HCl (Lidocaine Pf 2% Vial) 5 ml STK-MED ONCE .ROUTE ; Start 03/05/21 at 09:27; Stop 03/05/21 at 09:27; Status DC Ephedrine Sulfate (ePHEDrine PF IN SALINE SYRINGE) 50 mg STK-MED ONCE IV ; Start 03/05/21 at 09:34; Stop 03/05/21 at 09:34; Status DC Sevoflurane (Ultane) 30 ml STK-MED ONCE IH ; Start 03/05/21 at 09:44; Stop 03/05/21 at 09:45; Status DC Insulin Human Lispro (HumaLOG VIAL for OP,RR ONLY) 0-10 units PRN Q1HR PRN SQ PER PROTOCOL Last administered on 03/05/21at 10:16; Start 03/05/21 at 10:15; Stop 03/06/21 at 10:14; Status DC Multivitamins (Thera M Plus) 1 tab DAILY PO Last administered on 03/08/21at 10:31; Start 03/06/21 at 09:00 Ascorbic Acid (Vitamin C) 500 mg DAILY PO Last administered on 03/08/21at 10: 31; Start 03/06/21 at 09:00 Piperacillin Sod/ Tazobactam Sod 3.375 gm/Sodium Chloride 50 ml @ 100 mls/hr Q6HRS IV Last administered on 03/08/21at 12:10; Start 03/06/21 at 18:00 Linezolid (Zyvox) 600 mg BID PO Last administered on 03/08/21at 10:31; Start 03/06/21 at 21:00 Sodium Chloride 1,000 ml @ 125 mls/hr Q8H IV Last administered on 03/08/21at 10:33; Start 03/06/21 at 16:00 Hydrochlorothiazide (Microzide) 12.5 mg DAILY PO Last administered on 03/08/21at 10:31; Start 03/07/21 at 10:30 Insulin Glargine (Lantus Syringe) 12 unit BID SQ Last administered on 03/08/21at 10:32; Start 03/07/21 at 21:00 Insulin Human Lispro (HumaLOG) 0-7 UNITS TIDWMEALS SQ Last administered on 03/08/21at 12:26; Start 03/07/21 at 17:00 Insulin Human Lispro (HumaLOG) 20 units 1X ONCE SQ Last administered on 03/07/21at 17:31; Start 03/07/21 at 17:30; Stop 03/07/21 at 17:31; Status DC Fentanyl Citrate (Fentanyl 2ml Vial) 25 mcg PRN Q5MIN PRN IVP MILD PAIN 1-3; Start 03/08/21 at 06:00; Stop 03/08/21 at 10:05; Status DC Fentanyl Citrate (Fentanyl 2ml Vial) 50 mcg PRN Q5MIN PRN IVP MODERATE PAIN 4- 6; Start 03/08/21 at 06:00; Stop 03/09/21 at 05:59 Morphine Sulfate (Morphine Sulfate) 1 mg PRN Q10MIN PRN IVP SEVERE PAIN 7-10; Start 03/08/21 at 06:00; Stop 03/08/21 at 10:05; Status DC Ringer's Solution 1,000 ml @ 30 mls/hr Q24H IV ; Start 03/08/21 at 06:00; Stop 03/08/21 at 17:59 Hydromorphone HCl (Dilaudid) 0.5 mg PRN Q10MIN PRN IVP SEVERE PAIN 7-10, 2nd CHOICE; Start 03/08/21 at 06:00; Stop 03/09/21 at 05:59 Prochlorperazine Edisylate (Compazine) 5 mg PACU PRN PRN IVP NAUSEA, MRX1; Start 03/08/21 at 06:00; Stop 03/09/21 at 05:59 Propofol (Diprivan) 200 mg STK-MED ONCE IV ; Start 03/08/21 at 07:39; Stop 03/08/21 at 07:39; Status DC Lidocaine HCl (Lidocaine Pf 2% Vial) 5 ml STK-MED ONCE .ROUTE ; Start 03/08/21 at 07:39; Stop 03/08/21 at 07:39; Status DC Dexamethasone Sodium Phosphate (Decadron) 4 mg STK-MED ONCE .ROUTE ; Start 03/08/21 at 07:39; Stop 03/08/21 at 07:40; Status DC Ondansetron HCl (Zofran) 4 mg STK-MED ONCE .ROUTE ; Start 03/08/21 at 07:39; Stop 03/08/21 at 07:40; Status DC Phenylephrine HCl (PHENYLEPHRINE in 0.9% NACL PF) 1 mg STK-MED ONCE IV ; Start 03/08/21 at 07:39; Stop 03/08/21 at 07:40; Status DC Fentanyl Citrate (Fentanyl 2ml Vial) 100 mcg STK-MED ONCE .ROUTE ; Start 03/08/21 at 07:41; Stop 03/08/21 at 07:41; Status DC Succinylcholine Chloride (Anectine) 200 mg STK-MED ONCE .ROUTE ; Start 03/08/21 at 07:42; Stop 03/08/21 at 07:42; Status DC Famotidine (Pepcid Vial) 20 mg STK-MED ONCE .ROUTE ; Start 03/08/21 at 07:42; Stop 03/08/21 at 07:42; Status DC Sevoflurane (Ultane) 30 ml STK-MED ONCE IH ; Start 03/08/21 at 09:04; Stop 03/08/21 at 09:04; Status DC Sevoflurane (Ultane) 60 ml STK-MED ONCE IH ; Start 03/08/21 at 09:33; Stop 03/08/21 at 09:33; Status DC Fentanyl Citrate (Fentanyl 2ml Vial) 100 mcg STK-MED ONCE .ROUTE ; Start 03/08/21 at 09:36; Stop 03/08/21 at 09:36; Status DC Morphine Sulfate (Morphine Sulfate) 2 mg STK-MED ONCE .ROUTE ; Start 03/08/21 a t 09:36; Stop 03/08/21 at 09:36; Status DC Ondansetron HCl (Zofran) 4 mg PRN Q4HRS PRN IVP NAUSEA/VOMITING; Start 03/08/21 at 10:00; Stop 03/08/21 at 10:05; Status DC Bisacodyl (Dulcolax Supp) 10 mg 1X PRN PRN [place] CONSTIPATION; Start 03/09/21 at 16:00; Stop 03/10/21 at 15:59 Dextrose (Dextrose 50%-Water Syringe) 12.5 gm PRN Q15MIN PRN IV SEE COMMENTS; Start 03/08/21 at 10:00; Stop 03/08/21 at 10:05; Status DC Acetaminophen/ Hydrocodone Bitart (Lortab 5/325) 1 tab Q6HRS PRN PO PAIN; Start 03/08/21 at 10:00 Vitals/I & O Vital Sign - Last 24 Hours 03/07/21 03/07/21 03/07/21 03/08/21 19:00 20:00 23:00 03:00 Temp 97.5 97.9 97.9 97.5 97.9 97.9 Pulse 92 86 91 Resp 18 18 18 B/P (MAP) 159/88 (111) 152/93 (112) 162/100 (120) Pulse Ox 97 96 98 O2 Delivery Room Air 03/08/21 03/08/21 03/08/21 03/08/21 07:00 07:30 09:45 09:45 Temp 98.7 98.6 98.7 98.6 Pulse 108 102 Resp 18 16 B/P (MAP) 184/111 (135) 171/108 Pulse Ox 95 95 O2 Delivery Room Air Mask Simple Mask O2 Flow Rate 6 6 03/08/21 03/08/21 03/08/21 03/08/21 10:00 10:15 10:15 10:32 Temp 98.6 98.6 Pulse 90 90 90 Resp 16 18 B/P (MAP) 166/101 170/98 166/98 Pulse Ox 95 94 O2 Delivery Simple Mask Room Air Room Air Simple Mask O2 Flow Rate 6 03/08/21 11:00 Temp 98.9 98.9 Pulse 99 Resp 18 B/P (MAP) 169/104 (125) Pulse Ox 90 Intake and Output 03/07/21 03/07/21 03/08/21 15:00 23:00 07:00 Intake Total 1610 ml 6018 ml 1050 ml Output Total 1175 ml 2300 ml 450 ml Balance 435 ml 3718 ml 600 ml Justicifation of Admission Dx: Justifications for Admission: Justification of Admission Dx: Yes Acute Renal Failure: 3-Fold Rise in Serum SONALI Covington MD Mar 08, 2021 15:12
[2021-03-08 19:00] VITALS: BP 141/80
[2021-03-08 23:00] VITALS: BP 161/93
[2021-03-09 03:00] VITALS: BP 158/91
[2021-03-09] MEDS: PIPERACILLIN/TAZOBACTAM 3.375 GM in IV NORMAL SALINE 50ML 50 ML IV SCH ×3 (06:00→17:44)
[2021-03-09 07:00] VITALS: BP 166/103
[2021-03-09] MEDS: IV NORMAL SALINE 1000ML BAG 1,000 ML IV SCH ×3 (07:03→20:37)
[2021-03-09 07:15] LABS: BASO % 0 % (0-3); EOS # 0.2 x10^3/uL (0.0-0.7); EOS % 1 % (0-3); HEMOGLOBIN 14.2 g/dL (13.0-17.5); LYMPH # 3.2 x10^3/uL (1.0-4.8); LYMPH % 19 % (24-48); MEAN CORPUSCULAR HEMOGLOBIN 31 pg (25-35); MEAN CORPUSCULAR HGB CONC 34 g/dL (31-37); MEAN CORPUSCULAR VOLUME 91 fL (79-100); MONO # 1.6 x10^3/uL (0.0-1.1); MONO % 9 % (0-9); NEUT # 11.8 x10^3/uL (1.8-7.7); NEUT % 71 % (31-73); PLATELET COUNT 308 x10^3/uL (140-400); RED BLOOD COUNT 4.62 x10^6/uL (4.30-5.70); RED CELL DISTRIBUTION WIDTH 12.9 % (11.5-14.5); WHITE BLOOD COUNT 16.8 x10^3/uL (4.0-11.0)
[2021-03-09 07:51] LABS: CALCIUM 8.4 mg/dL (8.5-10.1); CREATININE 2.7 mg/dL (0.7-1.3); GFR 24.4; POTASSIUM 4.3 mmol/L (3.5-5.1)
[2021-03-09] MEDS: INSULIN LISPRO 300 UNITS/3 ML VIAL. SQ SCH ×6 (08:00→17:51)
[2021-03-09] MEDS: ASCORBIC ACID 500 MG TABLET PO SCH (08:48)
[2021-03-09] MEDS: hydroCHLOROthiazide 12.5 MG CAPSULE PO SCH (08:48)
[2021-03-09] MEDS: MULTIVITAMIN with MINERAL TABLET. PO SCH (08:48)
[2021-03-09] MEDS: LACTOBACILLUS RHAMNOSUS GG 1 CAPSULE. PO SCH ×2 (08:48→20:37)
[2021-03-09] MEDS: LINEZOLID 600 MG TABLET PO SCH ×2 (08:48→20:37)
[2021-03-09] MEDS: INSULIN GLARGINE SYRINGE. SQ SCH ×2 (09:00→22:06)
[2021-03-09 11:00] VITALS: BP 182/100
[2021-03-09 15:00] VITALS: BP 162/100
[2021-03-09] MEDS ORDERED: BISACODYL 10 MG SUPP.RECT. PR PRN (16:00)
--- NOTE | 2021-03-09 16:35 | PDOC ---
PROGRESS NOTES Date of Service: DATE: 03/09/21 TIME: 16:33 Chief Complaint Chief Complaint Postop Left foot incision and drainage, fifth metatarsal head and fifth proximal phalangeal base resection, wound VAC application, posterior splint application New diagnosis of diabetes (I suspect he has had this for many years) Probable Charcot's joint Acute renal failure secondary to vasomotor etiology vs interstitial nephritis probably vancomycin related Hypernatremia Plan encourage free water intake Renal ultrasound reviewed Follow recommendations from network security consultant as follows: -Blood culture 03/04: No growth to date -Intraoperative culture 03/05: No growth to date -Superficial wound swab 03/03: Proteus, E. coli, S.Oralis -Trend WBC daily -Appreciate internal medicine for medical optimization -Keep the dressing and VAC clean dry and intact -Strict nonweightbearing to the surgical foot -PT eval and treat Dispo: Plan for Wednesday repeat incision and drainage, rotational fifth digital flap to close the wound if intraoperative finding is insignificant for residual infection. Patient may benefit from outpatient antibiotic therapy as well. Vancomycin has been transitioned to linezolid Follow urinary output hopefully discharge in the next 24 to 48 hours. Will wait for recommendations from podiatry. May need to consult case management in the a.m. for home health for wound dressings History of Present Illness History of Present Illness 03/09/2021 Patient wanting to be discharged, at the time my visit laboratory data was still pending. White blood cell count still elevated, we will follow recommendations from certified surgical technologist. Will probably need to wait in the a.m. to have case management help us with home health services once final recommendations from our network security consultant have been noted 03/08/2021 No acute events reported overnight, case discussed with nursing staff patient in no acute distress no complaints during my visit seen postop 03/07/2021 No acute events reported overnight, case discussed with nursing staff patient in no acute distress no complaints during my visit No pain reported Patient feels much better Discussed results of his laboratory data with increase in creatinine, reassurance was provided 03/06/2021 Patient seen and examined He has clean dry intact dressing on his right foot Discussed with RN Discussed with case management Chart reviewed He is scheduled to go back to surgery Wednesday for flap Vitals Vitals Vital Signs Date Time Temp Pulse Resp B/P (MAP) Pulse Ox O2 Delivery O2 Flow Rate FiO2 03/09/21 08:48 90 166/103 03/09/21 08:15 Room Air 03/09/21 07:00 98.3 18 96 98.3 03/08/21 10:00 6 Physical Exam General: Alert, Oriented X3, Cooperative, No acute distress Heart: Regular rate Lungs: Clear Abdomen: Normal bowel sounds Extremities: No clubbing, Other (LEFT FOOT BANDAGED) Skin: No breakdown Labs LABS Laboratory Tests Test 03/08/21 17:15 03/08/21 20:08 03/09/21 06:10 03/09/21 07:57 Glucose (Fingerstick) 326 mg/dL (70-99) 285 mg/dL (70-99) 154 mg/dL (70-99) White Blood Count 16.8 x10^3/uL (4.0-11.0) Red Blood Count 4.62 x10^6/uL (4.30-5.70) Hemoglobin 14.2 g/dL (13.0-17.5) Hematocrit 42.0 % (39.0-53.0) Mean Corpuscular Volume 91 fL (79-100) Mean Corpuscular Hemoglobin 31 pg (25-35) Mean Corpuscular Hemoglobin Concent 34 g/dL (31-37) Red Cell Distribution Width 12.9 % (11.5-14.5) Platelet Count 308 x10^3/uL (140-400) Neutrophils (%) (Auto) 71 % (31-73) Lymphocytes (%) (Auto) 19 % (24-48) Monocytes (%) (Auto) 9 % (0-9) Eosinophils (%) (Auto) 1 % (0-3) Basophils (%) (Auto) 0 % (0-3) Neutrophils # (Auto) 11.8 x10^3/uL (1.8-7.7) Lymphocytes # (Auto) 3.2 x10^3/uL (1.0-4.8) Monocytes # (Auto) 1.6 x10^3/uL (0.0-1.1) Eosinophils # (Auto) 0.2 x10^3/uL (0.0-0.7) Basophils # (Auto) 0.0 x10^3/uL (0.0-0.2) Sodium Level 145 mmol/L (136-145) Potassium Level 4.3 mmol/L (3.5-5.1) Chloride Level 108 mmol/L (98-107) Carbon Dioxide Level 28 mmol/L (21-32) Anion Gap 9 (6-14) Blood Urea Nitrogen 29 mg/dL (8-26) Creatinine 2.7 mg/dL (0.7-1.3) Estimated GFR (Cockcroft-Gault) 24.4 Glucose Level 161 mg/dL (70-99) Calcium Level 8.4 mg/dL (8.5-10.1) Test 03/09/21 11:39 Glucose (Fingerstick) 209 mg/dL (70-99) Assessment and Plan Assessmemt and Plan Problems Medical Problems: (1) Foot ulcer, left Status: Acute (2) HTN (hypertension) Status: Acute (3) New onset type 2 diabetes mellitus Status: Acute Comment Review of Relevant I have reviewed the following items muriel (where applicable) has been applied. Labs Laboratory Tests Test 03/07/21 17:05 03/07/21 20:11 03/08/21 05:05 03/08/21 06:05 Glucose (Fingerstick) 417 mg/dL (70-99) 203 mg/dL (70-99) Sodium Level 148 mmol/L (136-145) Potassium Level 4.2 mmol/L (3.5-5.1) Chloride Level 108 mmol/L (98-107) Carbon Dioxide Level 29 mmol/L (21-32) Anion Gap 11 (6-14) Blood Urea Nitrogen 23 mg/dL (8-26) Creatinine 2.7 mg/dL (0.7-1.3) Estimated GFR (Cockcroft-Gault) 24.4 Glucose Level 122 mg/dL (70-99) Calcium Level 8.7 mg/dL (8.5-10.1) White Blood Count 16.6 x10^3/uL (4.0-11.0) Red Blood Count 5.10 x10^6/uL (4.30-5.70) Hemoglobin 15.2 g/dL (13.0-17.5) Hematocrit 46.0 % (39.0-53.0) Mean Corpuscular Volume 90 fL (79-100) Mean Corpuscular Hemoglobin 30 pg (25-35) Mean Corpuscular Hemoglobin Concent 33 g/dL (31-37) Red Cell Distribution Width 13.1 % (11.5-14.5) Platelet Count 326 x10^3/uL (140-400) Neutrophils (%) (Auto) 77 % (31-73) Lymphocytes (%) (Auto) 13 % (24-48) Monocytes (%) (Auto) 8 % (0-9) Eosinophils (%) (Auto) 1 % (0-3) Basophils (%) (Auto) 0 % (0-3) Neutrophils # (Auto) 12.8 x10^3/uL (1.8-7.7) Lymphocytes # (Auto) 2.2 x10^3/uL (1.0-4.8) Monocytes # (Auto) 1.4 x10^3/uL (0.0-1.1) Eosinophils # (Auto) 0.2 x10^3/uL (0.0-0.7) Basophils # (Auto) 0.1 x10^3/uL (0.0-0.2) Segmented Neutrophils % 85 % (35-66) Band Neutrophils % 1 % (0-9) Lymphocytes % 10 % (24-48) Monocytes % 4 % (0-10) Platelet Estimate Adequate (ADEQUATE) Creatine Kinase 22 U/L (39-308) Test 03/08/21 07:54 03/08/21 11:44 03/08/21 17:15 03/08/21 20:08 Glucose (Fingerstick) 169 mg/dL (70-99) 183 mg/dL (70-99) 326 mg/dL (70-99) 285 mg/dL (70-99) Test 03/09/21 06:10 03/09/21 07:57 03/09/21 11:39 White Blood Count 16.8 x10^3/uL (4.0-11.0) Red Blood Count 4.62 x10^6/uL (4.30-5.70) Hemoglobin 14.2 g/dL (13.0-17.5) Hematocrit 42.0 % (39.0-53.0) Mean Corpuscular Volume 91 fL (79-100) Mean Corpuscular Hemoglobin 31 pg (25-35) Mean Corpuscular Hemoglobin Concent 34 g/dL (31-37) Red Cell Distribution Width 12.9 % (11.5-14.5) Platelet Count 308 x10^3/uL (140-400) Neutrophils (%) (Auto) 71 % (31-73) Lymphocytes (%) (Auto) 19 % (24-48) Monocytes (%) (Auto) 9 % (0-9) Eosinophils (%) (Auto) 1 % (0-3) Basophils (%) (Auto) 0 % (0-3) Neutrophils # (Auto) 11.8 x10^3/uL (1.8-7.7) Lymphocytes # (Auto) 3.2 x10^3/uL (1.0-4.8) Monocytes # (Auto) 1.6 x10^3/uL (0.0-1.1) Eosinophils # (Auto) 0.2 x10^3/uL (0.0-0.7) Basophils # (Auto) 0.0 x10^3/uL (0.0-0.2) Sodium Level 145 mmol/L (136-145) Potassium Level 4.3 mmol/L (3.5-5.1) Chloride Level 108 mmol/L (98-107) Carbon Dioxide Level 28 mmol/L (21-32) Anion Gap 9 (6-14) Blood Urea Nitrogen 29 mg/dL (8-26) Creatinine 2.7 mg/dL (0.7-1.3) Estimated GFR (Cockcroft-Gault) 24.4 Glucose Level 161 mg/dL (70-99) Calcium Level 8.4 mg/dL (8.5-10.1) Glucose (Fingerstick) 154 mg/dL (70-99) 209 mg/dL (70-99) Laboratory Tests Test 03/08/21 17:15 03/08/21 20:08 03/09/21 06:10 03/09/21 07:57 Glucose (Fingerstick) 326 mg/dL (70-99) 285 mg/dL (70-99) 154 mg/dL (70-99) White Blood Count 16.8 x10^3/uL (4.0-11.0) Red Blood Count 4.62 x10^6/uL (4.30-5.70) Hemoglobin 14.2 g/dL (13.0-17.5) Hematocrit 42.0 % (39.0-53.0) Mean Corpuscular Volume 91 fL (79-100) Mean Corpuscular Hemoglobin 31 pg (25-35) Mean Corpuscular Hemoglobin Concent 34 g/dL (31-37) Red Cell Distribution Width 12.9 % (11.5-14.5) Platelet Count 308 x10^3/uL (140-400) Neutrophils (%) (Auto) 71 % (31-73) Lymphocytes (%) (Auto) 19 % (24-48) Monocytes (%) (Auto) 9 % (0-9) Eosinophils (%) (Auto) 1 % (0-3) Basophils (%) (Auto) 0 % (0-3) Neutrophils # (Auto) 11.8 x10^3/uL (1.8-7.7) Lymphocytes # (Auto) 3.2 x10^3/uL (1.0-4.8) Monocytes # (Auto) 1.6 x10^3/uL (0.0-1.1) Eosinophils # (Auto) 0.2 x10^3/uL (0.0-0.7) Basophils # (Auto) 0.0 x10^3/uL (0.0-0.2) Sodium Level 145 mmol/L (136-145) Potassium Level 4.3 mmol/L (3.5-5.1) Chloride Level 108 mmol/L (98-107) Carbon Dioxide Level 28 mmol/L (21-32) Anion Gap 9 (6-14) Blood Urea Nitrogen 29 mg/dL (8-26) Creatinine 2.7 mg/dL (0.7-1.3) Estimated GFR (Cockcroft-Gault) 24.4 Glucose Level 161 mg/dL (70-99) Calcium Level 8.4 mg/dL (8.5-10.1) Test 03/09/21 11:39 Glucose (Fingerstick) 209 mg/dL (70-99) Microbiology 03/08/21 Gram Stain - Final, Resulted 03/08/21 Aerobic and Anaerobic Culture, Resulted Pending 03/04/21 Blood Culture - Final, Complete NO GROWTH AFTER 5 DAYS Medications Current Medications Sodium Chloride 1,000 ml @ 0 mls/hr 1X ONCE IV Last administered on 03/03/21at 20:39; Start 03/03/21 at 20:00; Stop 03/03/21 at 20:04; Status DC Piperacillin Sod/ Tazobactam Sod 4.5 gm/Sodium Chloride 100 ml @ 200 mls/hr 1X ONCE IV Last administered on 03/04/21at 00:28; Start 03/03/21 at 23:45; Stop 03/04/21 at 00:14; Status DC Vancomycin HCl 2 gm/Sodium Chloride 500 ml @ 250 mls/hr 1X ONCE IV Last administered on 03/04/21at 00:28; Start 03/04/21 at 00:30; Stop 03/04/21 at 02:29; Status DC Vancomycin HCl (Vanco Per Pharmacy) 1 each PRN DAILY PRN MC SEE COMMENTS Last administered on 03/06/21at 15:36; Start 03/03/21 at 23:45; Stop 03/06/21 at 15:58; Status DC Lisinopril (Prinivil) 10 mg 1X ONCE PO Last administered on 03/04/21at 01:30; Start 03/04/21 at 01:30; Stop 03/04/21 at 01:31; Status DC Vancomycin HCl 1.5 gm/Sodium Chloride 500 ml @ 250 mls/hr Q8H IV Last administered on 03/06/21at 08:52; Start 03/04/21 at 09:00; Stop 03/06/21 at 15:58; Status DC Vancomycin HCl (Vancomycin Trough Level) 1 each 1X ONCE MC ; Start 03/05/21 at 00:30; Stop 03/05/21 at 00:31; Status DC Insulin Human Lispro (HumaLOG) 10 units TIDAC SQ Last administered on 03/09/21at 12:15; Start 03/04/21 at 11:30 Insulin Glargine (Lantus Syringe) 20 unit QHS SQ Last administered on 03/06/21at 20:55; Start 03/04/21 at 21:00; Stop 03/07/21 at 13:52; Status DC Amlodipine Besylate (Norvasc) 10 mg DAILY PO Last administered on 03/09/21at 08:48; Start 03/04/21 at 09:00 Piperacillin Sod/ Tazobactam Sod (Zosyn Per Pharmacy) 1 each PRN DAILY PRN MC SEE COMMENTS; Start 03/04/21 at 09:00; Stop 03/06/21 at 14:56; Status DC Piperacillin Sod/ Tazobactam Sod 4.5 gm/Sodium Chloride 100 ml @ 200 mls/hr Q6HRS IV Last administered on 03/06/21at 11:30; Start 03/04/21 at 09:00; Stop 03/06/21 at 14:57; Status DC Lactobacillus Rhamnosus (Culturelle) 1 cap BID PO Last administered on 03/09/21at 08:48; Start 03/04/21 at 21:00 Fentanyl Citrate (Fentanyl 2ml Vial) 25 mcg PRN Q5MIN PRN IVP MILD PAIN 1-3; Start 03/05/21 at 06:00; Stop 03/05/21 at 10:07; Status DC Fentanyl Citrate (Fentanyl 2ml Vial) 50 mcg PRN Q5MIN PRN IVP MODERATE PAIN 4- 6; Start 03/05/21 at 06:00; Stop 03/05/21 at 10:07; Status DC Morphine Sulfate (Morphine Sulfate) 1 mg PRN Q10MIN PRN IVP SEVERE PAIN 7-10; Start 03/05/21 at 06:00; Stop 03/06/21 at 05:59; Status DC Ringer's Solution 1,000 ml @ 30 mls/hr Q24H IV Last administered on 03/05/21at 08:00; Start 03/05/21 at 06:00; Stop 03/05/21 at 17:59; Status DC Hydromorphone HCl (Dilaudid) 0.5 mg PRN Q10MIN PRN IVP SEVERE PAIN 7-10, 2nd CHOICE; Start 03/05/21 at 06:00; Stop 03/05/21 at 10:07; Status DC Prochlorperazine Edisylate (Compazine) 5 mg PACU PRN PRN IVP NAUSEA, MRX1; Start 03/05/21 at 06:00; Stop 03/06/21 at 05:59; Status DC Bupivacaine HCl (Sensorcaine Mpf 0.25%) 30 ml STK-MED ONCE .ROUTE ; Start 03/05/21 at 07:11; Stop 03/05/21 at 07:12; Status DC Vancomycin HCl (Vancomycin) 1 gm STK-MED ONCE .ROUTE ; Start 03/05/21 at 07:11; Stop 03/05/21 at 07:12; Status DC Fentanyl Citrate (Fentanyl 2ml Vial) 100 mcg STK-MED ONCE .ROUTE ; Start 03/05/21 at 08:59; Stop 03/05/21 at 08:59; Status DC Bupivacaine HCl/ Epinephrine Bitart (Sensorcain-Epi 0.25% Kit) 30 ml STK-MED ONCE INJ Last administered on 03/05/21at 09:20; Start 03/05/21 at 09:20; Stop 03/05/21 at 09:36; Status DC Ondansetron HCl (Zofran) 4 mg STK-MED ONCE .ROUTE ; Start 03/05/21 at 09:27; Stop 03/05/21 at 09:27; Status DC Propofol (Diprivan) 200 mg STK-MED ONCE IV ; Start 03/05/21 at 09:27; Stop 03/05/21 at 09:27; Status DC Lidocaine HCl (Lidocaine Pf 2% Vial) 5 ml STK-MED ONCE .ROUTE ; Start 03/05/21 at 09:27; Stop 03/05/21 at 09:27; Status DC Ephedrine Sulfate (ePHEDrine PF IN SALINE SYRINGE) 50 mg STK-MED ONCE IV ; Start 03/05/21 at 09:34; Stop 03/05/21 at 09:34; Status DC Sevoflurane (Ultane) 30 ml STK-MED ONCE IH ; Start 03/05/21 at 09:44; Stop 03/05/21 at 09:45; Status DC Insulin Human Lispro (HumaLOG VIAL for OP,RR ONLY) 0-10 units PRN Q1HR PRN SQ PER PROTOCOL Last administered on 03/05/21at 10:16; Start 03/05/21 at 10:15; Stop 03/06/21 at 10:14; Status DC Multivitamins (Thera M Plus) 1 tab DAILY PO Last administered on 03/09/21at 08:48; Start 03/06/21 at 09:00 Ascorbic Acid (Vitamin C) 500 mg DAILY PO Last administered on 03/09/21at 08:48; Start 03/06/21 at 09:00 Piperacillin Sod/ Tazobactam Sod 3.375 gm/Sodium Chloride 50 ml @ 100 mls/hr Q6HRS IV Last administered on 03/09/21at 12:13; Start 03/06/21 at 18:00 Linezolid (Zyvox) 600 mg BID PO Last administered on 03/09/21at 08:48; Start 03/06/21 at 21:00 Sodium Chloride 1,000 ml @ 125 mls/hr Q8H IV Last administered on 03/09/21at 13:32; Start 03/06/21 at 16:00 Hydrochlorothiazide (Microzide) 12.5 mg DAILY PO Last administered on 03/09/21at 08:48; Start 03/07/21 at 10:30 Insulin Glargine (Lantus Syringe) 12 unit BID SQ Last administered on 03/09/21at 09:00; Start 03/07/21 at 21:00 Insulin Human Lispro (HumaLOG) 0-7 UNITS TIDWMEALS SQ Last administered on 03/09/21at 12:14; Start 03/07/21 at 17:00 Insulin Human Lispro (HumaLOG) 20 units 1X ONCE SQ Last administered on 03/07/21at 17:31; Start 03/07/21 at 17:30; Stop 03/07/21 at 17:31; Status DC Fentanyl Citrate (Fentanyl 2ml Vial) 25 mcg PRN Q5MIN PRN IVP MILD PAIN 1-3; Start 03/08/21 at 06:00; Stop 03/08/21 at 10:05; Status DC Fentanyl Citrate (Fentanyl 2ml Vial) 50 mcg PRN Q5MIN PRN IVP MODERATE PAIN 4- 6; Start 03/08/21 at 06:00; Stop 03/09/21 at 05:59; Status DC Morphine Sulfate (Morphine Sulfate) 1 mg PRN Q10MIN PRN IVP SEVERE PAIN 7-10; Start 03/08/21 at 06:00; Stop 03/08/21 at 10:05; Status DC Ringer's Solution 1,000 ml @ 30 mls/hr Q24H IV ; Start 03/08/21 at 06:00; St op 03/08/21 at 17:59; Status DC Hydromorphone HCl (Dilaudid) 0.5 mg PRN Q10MIN PRN IVP SEVERE PAIN 7-10, 2nd CHOICE; Start 03/08/21 at 06:00; Stop 03/09/21 at 05:59; Status DC Prochlorperazine Edisylate (Compazine) 5 mg PACU PRN PRN IVP NAUSEA, MRX1; Start 03/08/21 at 06:00; Stop 03/09/21 at 05:59; Status DC Propofol (Diprivan) 200 mg STK-MED ONCE IV ; Start 03/08/21 at 07:39; Stop 03/08/21 at 07:39; Status DC Lidocaine HCl (Lidocaine Pf 2% Vial) 5 ml STK-MED ONCE .ROUTE ; Start 03/08/21 at 07:39; Stop 03/08/21 at 07:39; Status DC Dexamethasone Sodium Phosphate (Decadron) 4 mg STK-MED ONCE .ROUTE ; Start 03/08/21 at 07:39; Stop 03/08/21 at 07:40; Status DC Ondansetron HCl (Zofran) 4 mg STK-MED ONCE .ROUTE ; Start 03/08/21 at 07:39; Stop 03/08/21 at 07:40; Status DC Phenylephrine HCl (PHENYLEPHRINE in 0.9% NACL PF) 1 mg STK-MED ONCE IV ; Start 03/08/21 at 07:39; Stop 03/08/21 at 07:40; Status DC Fentanyl Citrate (Fentanyl 2ml Vial) 100 mcg STK-MED ONCE .ROUTE ; Start 03/08/21 at 07:41; Stop 03/08/21 at 07:41; Status DC Succinylcholine Chloride (Anectine) 200 mg STK-MED ONCE .ROUTE ; Start 03/08/21 at 07:42; Stop 03/08/21 at 07:42; Status DC Famotidine (Pepcid Vial) 20 mg STK-MED ONCE .ROUTE ; Start 03/08/21 at 07:42; Stop 03/08/21 at 07:42; Status DC Sevoflurane (Ultane) 30 ml STK-MED ONCE IH ; Start 03/08/21 at 09:04; Stop 03/08/21 at 09:04; Status DC Sevoflurane (Ultane) 60 ml STK-MED ONCE IH ; Start 03/08/21 at 09:33; Stop 03/08/21 at 09:33; Status DC Fentanyl Citrate (Fentanyl 2ml Vial) 100 mcg STK-MED ONCE .ROUTE ; Start 03/08/21 at 09:36; Stop 03/08/21 at 09:36; Status DC Morphine Sulfate (Morphine Sulfate) 2 mg STK-MED ONCE .ROUTE ; Start 03/08/21 at 09:36; Stop 03/08/21 at 09:36; Status DC Ondansetron HCl (Zofran) 4 mg PRN Q4HRS PRN IVP NAUSEA/VOMITING; Start 03/08/21 at 10:00; Stop 03/08/21 at 10:05; Status DC Bisacodyl (Dulcolax Supp) 10 mg 1X PRN PRN AL CONSTIPATION; Start 03/09/21 at 16:00; Stop 03/10/21 at 15:59 Dextrose (Dextrose 50%-Water Syringe) 12.5 gm PRN Q15MIN PRN IV SEE COMMENTS; Start 03/08/21 at 10:00; Stop 03/08/21 at 10:05; Status DC Acetaminophen/ Hydrocodone Bitart (Lortab 5/325) 1 tab Q6HRS PRN PO PAIN; Start 03/08/21 at 10:00 Vitals/I & O Vital Sign - Last 24 Hours 03/08/21 03/08/21 03/08/21 03/09/21 19:00 20:25 23:00 03:00 Temp 98.4 97.8 97.6 98.4 97.8 97.6 Pulse 73 78 91 Resp 18 18 18 B/P (MAP) 141/80 (100) 161/93 (115) 158/91 (113) Pulse Ox 96 96 96 O2 Delivery Room Air Room Air Room Air Room Air 03/09/21 03/09/21 03/09/21 07:00 08:15 08:48 Temp 98.3 98.3 Pulse 90 90 Resp 18 B/P (MAP) 166/103 (124) 166/103 Pulse Ox 96 O2 Delivery Room Air Intake and Output 03/08/21 03/08/21 03/09/21 15:00 23:00 07:00 Intake Total 3300 ml 850 ml 240 ml Output Total 655 ml 300 ml 600 ml Balance 2645 ml 550 ml -360 ml Justicifation of Admission Dx: Justifications for Admission: Justification of Admission Dx: Yes Acute Renal Failure: 3-Fold Rise in Serum SONALI Covington MD Mar 09, 2021 16:35
[2021-03-09 19:00] VITALS: BP 177/96
[2021-03-09 23:00] VITALS: BP 168/91
[2021-03-10 03:00] VITALS: BP 164/90
[2021-03-10 04:50] LABS: BASO # 0.1 x10^3/uL (0.0-0.2); BASO % 1 % (0-3); EOS # 0.2 x10^3/uL (0.0-0.7); EOS % 2 % (0-3); HEMATOCRIT 44.6 % (39.0-53.0); HEMOGLOBIN 14.3 g/dL (13.0-17.5); LYMPH # 2.7 x10^3/uL (1.0-4.8); LYMPH % 20 % (24-48); MEAN CORPUSCULAR HEMOGLOBIN 29 pg (25-35); MEAN CORPUSCULAR HGB CONC 32 g/dL (31-37); MEAN CORPUSCULAR VOLUME 90 fL (79-100); MONO # 1.3 x10^3/uL (0.0-1.1); MONO % 9 % (0-9); NEUT # 9.2 x10^3/uL (1.8-7.7); NEUT % 69 % (31-73); PLATELET COUNT 312 x10^3/uL (140-400); RED BLOOD COUNT 4.93 x10^6/uL (4.30-5.70); RED CELL DISTRIBUTION WIDTH 12.8 % (11.5-14.5); WHITE BLOOD COUNT 13.5 x10^3/uL (4.0-11.0)
[2021-03-10 05:06] LABS: CALCIUM 8.7 mg/dL (8.5-10.1); CREATININE 2.8 mg/dL (0.7-1.3); GFR 23.4; POTASSIUM 4.3 mmol/L (3.5-5.1)
[2021-03-10] MEDS: IV NORMAL SALINE 1000ML BAG 1,000 ML IV SCH ×3 (05:48→23:21)
[2021-03-10] MEDS: PIPERACILLIN/TAZOBACTAM 3.375 GM in IV NORMAL SALINE 50ML 50 ML IV SCH ×5 (05:49→23:21)
[2021-03-10 07:00] VITALS: BP 178/107
[2021-03-10] MEDS: ASCORBIC ACID 500 MG TABLET PO SCH (08:38)
[2021-03-10] MEDS: MULTIVITAMIN with MINERAL TABLET. PO SCH (08:38)
[2021-03-10] MEDS: LACTOBACILLUS RHAMNOSUS GG 1 CAPSULE. PO SCH ×2 (08:38→21:34)
[2021-03-10] MEDS: hydroCHLOROthiazide 12.5 MG CAPSULE PO SCH (08:38)
[2021-03-10] MEDS: LINEZOLID 600 MG TABLET PO SCH ×2 (08:38→21:34)
[2021-03-10] MEDS: INSULIN GLARGINE SYRINGE. SQ SCH ×2 (09:00→21:36)
--- NOTE | 2021-03-10 09:49 | PDOC ---
DATE OF SERVICE DATE: 03/10/21 TIME: 09:49 SUBJECTIVE ROS stable OBJECTIVE Vital Signs Vital Signs Date Time Temp Pulse Resp B/P (MAP) Pulse Ox O2 Delivery O2 Flow Rate FiO2 03/10/21 08:39 100 178/107 03/10/21 07:00 98.5 20 97 Room Air 98.5 03/09/21 23:00 6.0 I & 0 Intake and Output 03/10/21 07:00 Intake Total 2400 ml Output Total 2150 ml Balance 250 ml Intake Oral 1250 ml IV Total 1150 ml Output Urine Total 2150 ml # Voids 1 # Bowel Movements 2 PHYSICAL EXAM Physical Exam General: Alert, Oriented X3, Cooperative, No acute distress HEENT: Atraumatic, PERRLA Lungs: Clear to auscultation Heart: Regular rate Abdomen: Normal bowel sounds Extremities: No clubbing, Other (LEFT FOOT BANDAGED) Skin: No breakdown Neuro: Normal speech MUSCULOSKELETAL: No swelling, Other (LLE FOOT EDEMA) DIAGNOSIS/ASSESSMENT Assessment & Plan MYCHAL-Suspect AIN probably 2/2 Vancomycin vs ATN ; UA unremarkable , Renal US no e/o LUNA , No Hydroneophrosis , good UOP. Baseline Creat normal POA- slowly trending up, Monitor, supportive care, strict I/O, avoid Nephrotoxins Renal Cyst 2.4 cm hypoechogenicity identified in the inferior pole the left kidney could be a cyst or cystic lesion. Consider CT urogram for further evaluation. Postop Left foot incision and drainage, fifth metatarsal head and fifth proximal phalangeal base resection New diagnosis of diabetes Hypernatremia-Mild, encourage PO fuid intake COMMENT/RELEVANT DATA Meds Current Medications Medications (Trade) Dose Ordered Sig/Vladimir Start Time Stop Time Status Last Admin Dose Admin Acetaminophen/ Hydrocodone Bitart (Lortab 5/325) 1 tab Q6HRS PRN 03/08/21 10:00 Amlodipine Besylate (Norvasc) 10 mg DAILY 03/04/21 09:00 03/10/21 08:39 10 MG Ascorbic Acid (Vitamin C) 500 mg DAILY 03/06/21 09:00 03/10/21 08:38 500 MG Bisacodyl (Dulcolax Supp) 10 mg 1X PRN PRN 03/09/21 16:00 03/10/21 15:59 Bupivacaine HCl (Sensorcaine Mpf 0.25%) 30 ml STK-MED ONCE 03/05/21 07:11 03/05/21 07:12 DC Bupivacaine HCl/ Epinephrine Bitart (Sensorcain-Epi 0.25% Kit) 30 ml STK-MED ONCE 03/05/21 09:20 03/05/21 09:36 DC 03/05/21 09:20 10 ML Dexamethasone Sodium Phosphate (Decadron) 4 mg STK-MED ONCE 03/08/21 07:39 03/08/21 07:40 DC Dextrose (Dextrose 50%-Water Syringe) 12.5 gm PRN Q15MIN PRN 03/08/21 10:00 03/08/21 10:05 DC Ephedrine Sulfate (ePHEDrine PF IN SALINE SYRINGE) 50 mg STK-MED ONCE 03/05/21 09:34 03/05/21 09:34 DC Famotidine (Pepcid Vial) 20 mg STK-MED ONCE 03/08/21 07:42 03/08/21 07:42 DC Fentanyl Citrate (Fentanyl 2ml Vial) 100 mcg STK-MED ONCE 03/08/21 09:36 03/08/21 09:36 DC Hydrochlorothiazide (Microzide) 12.5 mg DAILY 03/07/21 10:30 03/10/21 08:38 12.5 MG Hydromorphone HCl (Dilaudid) 0.5 mg PRN Q10MIN PRN 03/08/21 06:00 03/09/21 05:59 DC Insulin Glargine (Lantus Syringe) 12 unit BID 03/07/21 21:00 03/09/21 22:06 12 UNIT Insulin Human Lispro (HumaLOG VIAL for OP,RR ONLY) 0-10 units PRN Q1HR PRN 03/05/21 10:15 03/06/21 10:14 DC 03/05/21 10:16 6 UNIT Insulin Human Lispro (HumaLOG) 20 units 1X ONCE 03/07/21 17:30 03/07/21 17:31 DC 03/07/21 17:31 20 UNITS Lactobacillus Rhamnosus (Culturelle) 1 cap BID 03/04/21 21:00 03/10/21 08:38 1 CAP Lidocaine HCl (Lidocaine Pf 2% Vial) 5 ml STK-MED ONCE 03/08/21 07:39 03/08/21 07:39 DC Linezolid (Zyvox) 600 mg BID 03/06/21 21:00 03/10/21 08:38 600 MG Lisinopril (Prinivil) 10 mg 1X ONCE 03/04/21 01:30 03/04/21 01:31 DC 03/04/21 01:30 10 MG Morphine Sulfate (Morphine Sulfate) 2 mg STK-MED ONCE 03/08/21 09:36 03/08/21 09:36 DC Multivitamins (Thera M Plus) 1 tab DAILY 03/06/21 09:00 03/10/21 08:38 1 TAB Ondansetron HCl (Zofran) 4 mg PRN Q4HRS PRN 03/08/21 10:00 03/08/21 10:05 DC Phenylephrine HCl (PHENYLEPHRINE in 0.9% NACL PF) 1 mg STK-MED ONCE 03/08/21 07:39 03/08/21 07:40 DC Piperacillin Sod/ Tazobactam Sod (Zosyn Per Pharmacy) 1 each PRN DAILY PRN 03/04/21 09:00 03/06/21 14:56 DC Piperacillin Sod/ Tazobactam Sod 3.375 gm/Sodium Chloride 50 ml @ 100 mls/hr Q6HRS 03/06/21 18:00 03/10/21 05:49 100 MLS/HR Piperacillin Sod/ Tazobactam Sod 4.5 gm/Sodium Chloride 100 ml @ 200 mls/hr Q6HRS 03/04/21 09:00 03/06/21 14:57 DC 03/06/21 11:30 200 MLS/HR Prochlorperazine Edisylate (Compazine) 5 mg PACU PRN PRN 03/08/21 06:00 03/09/21 05:59 DC Propofol (Diprivan) 200 mg STK-MED ONCE 03/08/21 07:39 03/08/21 07:39 DC Ringer's Solution 1,000 ml @ 30 mls/hr Q24H 03/08/21 06:00 03/08/21 17:59 DC Sevoflurane (Ultane) 60 ml STK-MED ONCE 03/08/21 09:33 03/08/21 09:33 DC Sodium Chloride 1,000 ml @ 125 mls/hr Q8H 03/06/21 16:00 03/10/21 05:48 125 MLS/HR Succinylcholine Chloride (Anectine) 200 mg STK-MED ONCE 03/08/21 07:42 03/08/21 07:42 DC Vancomycin HCl (Vanco Per Pharmacy) 1 each PRN DAILY PRN 03/03/21 23:45 03/06/21 15:58 DC 03/06/21 15:36 1 EACH Vancomycin HCl (Vancomycin Trough Level) 1 each 1X ONCE 03/05/21 00:30 03/05/21 00:31 DC Vancomycin HCl (Vancomycin) 1 gm STK-MED ONCE 03/05/21 07:11 03/05/21 07:12 DC Vancomycin HCl 1.5 gm/Sodium Chloride 500 ml @ 250 mls/hr Q8H 03/04/21 09:00 03/06/21 15:58 DC 03/06/21 08:52 250 MLS/HR Vancomycin HCl 2 gm/Sodium Chloride 500 ml @ 250 mls/hr 1X ONCE 03/04/21 00:30 03/04/21 02:29 DC 03/04/21 00:28 250 MLS/HR Lab Laboratory Tests Test 03/09/21 11:39 03/09/21 17:32 03/09/21 20:41 03/10/21 04:20 Glucose (Fingerstick) 209 mg/dL (70-99) 125 mg/dL (70-99) 224 mg/dL (70-99) White Blood Count 13.5 x10^3/uL (4.0-11.0) Red Blood Count 4.93 x10^6/uL (4.30-5.70) Hemoglobin 14.3 g/dL (13.0-17.5) Hematocrit 44.6 % (39.0-53.0) Mean Corpuscular Volume 90 fL (79-100) Mean Corpuscular Hemoglobin 29 pg (25-35) Mean Corpuscular Hemoglobin Concent 32 g/dL (31-37) Red Cell Distribution Width 12.8 % (11.5-14.5) Platelet Count 312 x10^3/uL (140-400) Neutrophils (%) (Auto) 69 % (31-73) Lymphocytes (%) (Auto) 20 % (24-48) Monocytes (%) (Auto) 9 % (0-9) Eosinophils (%) (Auto) 2 % (0-3) Basophils (%) (Auto) 1 % (0-3) Neutrophils # (Auto) 9.2 x10^3/uL (1.8-7.7) Lymphocytes # (Auto) 2.7 x10^3/uL (1.0-4.8) Monocytes # (Auto) 1.3 x10^3/uL (0.0-1.1) Eosinophils # (Auto) 0.2 x10^3/uL (0.0-0.7) Basophils # (Auto) 0.1 x10^3/uL (0.0-0.2) Sodium Level 146 mmol/L (136-145) Potassium Level 4.3 mmol/L (3.5-5.1) Chloride Level 110 mmol/L (98-107) Carbon Dioxide Level 29 mmol/L (21-32) Anion Gap 7 (6-14) Blood Urea Nitrogen 35 mg/dL (8-26) Creatinine 2.8 mg/dL (0.7-1.3) Estimated GFR (Cockcroft-Gault) 23.4 Glucose Level 174 mg/dL (70-99) Calcium Level 8.7 mg/dL (8.5-10.1) Test 03/10/21 07:47 Glucose (Fingerstick) 228 mg/dL (70-99) Results All relevant outside records, renal labs, imaging studies, telemetry/EKG's were reviewed. Justicifation of Admission Dx: Justifications for Admission: Justification of Admission Dx: Yes Acute Renal Failure: 3-Fold Rise in Serum BRYANT Khoury MD Mar 10, 2021 09:49
[2021-03-10] MEDS: INSULIN LISPRO 300 UNITS/3 ML VIAL. SQ SCH ×6 (10:21→17:49)
--- NOTE | 2021-03-10 10:33 | NUR ---
SW following. Discussed with RN, pt from home, room air, ada diet. COVID-19 positive. Pt had surgery on 03/08, no longer has a wound vac. Pt still on IV abx. Therapy recommending home. Awaiting determination of abx. SW will continue to follow.
[2021-03-10 11:00] VITALS: BP 171/102
[2021-03-10] MEDS ORDERED: hydroCHLOROthiazide 12.5 MG CAPSULE PO ONE (12:00)
--- NOTE | 2021-03-10 12:47 | PDOC ---
[employer] PROGRESS NOTE Date of Service DOS: DATE: 03/10/21 TIME: 12:46 Chief Complaint Chief Complaint Postop Left foot incision and drainage, fifth metatarsal head and fifth proximal phalangeal base resection, wound VAC application, posterior splint application New diagnosis of diabetes (I suspect he has had this for many years) Probable Charcot's joint Acute renal failure secondary to vasomotor etiology vs interstitial nephritis probably vancomycin related Hypernatremia Plan encourage free water intake Renal ultrasound reviewed Follow recommendations from automotive service consultant as follows: -Blood culture 03/04: No growth to date -Intraoperative culture 03/05: No growth to date -Superficial wound swab 03/03: Proteus, E. coli, S.Oralis -Trend WBC daily -Appreciate internal medicine for medical optimization -Keep the dressing and VAC clean dry and intact -Strict nonweightbearing to the surgical foot -PT eval and treat Dispo: Plan for Wednesday repeat incision and drainage, rotational fifth digital flap to close the wound if intraoperative finding is insignificant for residual infection. Patient may benefit from outpatient antibiotic therapy as well. Vancomycin has been transitioned to linezolid Follow urinary output hopefully discharge in the next 24 to 48 hours. Will wait for recommendations from podiatry. May need to consult case management in the a.m. for home health for wound dressings History of Present Illness History of Present Illness 03/10 Patient evaluated and examined at bedside. He is pretty eager about plan and discharge. Creatinine still elevated notably. Will follow nephrology consult. Continue antibiotics and following cultures. Recheck creatinine tomorrow morning if improving can likely discharge. 03/09/2021 Patient wanting to be discharged, at the time my visit laboratory data was still pending. White blood cell count still elevated, we will follow recommendations from surgical lead. Will probably need to wait in the a.m. to have case management help us with home health services once final recommendations from our automotive service consultant have been noted 03/08/2021 No acute events reported overnight, case discussed with nursing staff patient in no acute distress no complaints during my visit seen postop 03/07/2021 No acute events reported overnight, case discussed with nursing staff patient in no acute distress no complaints during my visit No pain reported Patient feels much better Discussed results of his laboratory data with increase in creatinine, reassurance was provided 03/06/2021 Patient seen and examined He has clean dry intact dressing on his right foot Discussed with RN Discussed with case management Chart reviewed He is scheduled to go back to surgery Wednesday for flap Vitals/I&O Vitals/I&O: Vital Signs Date Time Temp Pulse Resp B/P (MAP) Pulse Ox O2 Delivery O2 Flow Rate FiO2 03/10/21 11:00 98.4 96 20 171/102 (125) 96 Room Air 98.4 03/09/21 23:00 6.0 I & O 03/09/21 03/09/21 03/10/21 15:00 23:00 07:00 Intake Total 1750 ml 50 ml 600 ml Output Total 1550 ml 600 ml Balance 200 ml 50 ml 0 ml Physical Exam General: Alert, Oriented X3, Cooperative, No acute distress Heart: Regular rate Lungs: Clear Abdomen: Normal bowel sounds Extremities: No clubbing, Other (LEFT FOOT BANDAGED) Skin: No breakdown Labs Labs: Laboratory Tests Test 03/09/21 17:32 03/09/21 20:41 03/10/21 04:20 03/10/21 07:47 Glucose (Fingerstick) 125 mg/dL (70-99) 224 mg/dL (70-99) 228 mg/dL (70-99) White Blood Count 13.5 x10^3/uL (4.0-11.0) Red Blood Count 4.93 x10^6/uL (4.30-5.70) Hemoglobin 14.3 g/dL (13.0-17.5) Hematocrit 44.6 % (39.0-53.0) Mean Corpuscular Volume 90 fL (79-100) Mean Corpuscular Hemoglobin 29 pg (25-35) Mean Corpuscular Hemoglobin Concent 32 g/dL (31-37) Red Cell Distribution Width 12.8 % (11.5-14.5) Platelet Count 312 x10^3/uL (140-400) Neutrophils (%) (Auto) 69 % (31-73) Lymphocytes (%) (Auto) 20 % (24-48) Monocytes (%) (Auto) 9 % (0-9) Eosinophils (%) (Auto) 2 % (0-3) Basophils (%) (Auto) 1 % (0-3) Neutrophils # (Auto) 9.2 x10^3/uL (1.8-7.7) Lymphocytes # (Auto) 2.7 x10^3/uL (1.0-4.8) Monocytes # (Auto) 1.3 x10^3/uL (0.0-1.1) Eosinophils # (Auto) 0.2 x10^3/uL (0.0-0.7) Basophils # (Auto) 0.1 x10^3/uL (0.0-0.2) Sodium Level 146 mmol/L (136-145) Potassium Level 4.3 mmol/L (3.5-5.1) Chloride Level 110 mmol/L (98-107) Carbon Dioxide Level 29 mmol/L (21-32) Anion Gap 7 (6-14) Blood Urea Nitrogen 35 mg/dL (8-26) Creatinine 2.8 mg/dL (0.7-1.3) Estimated GFR (Cockcroft-Gault) 23.4 Glucose Level 174 mg/dL (70-99) Calcium Level 8.7 mg/dL (8.5-10.1) Test 03/10/21 11:36 Glucose (Fingerstick) 169 mg/dL (70-99) Assessment and Plan Assessmemt and Plan Problems Medical Problems: (1) Foot ulcer, left Status: Acute (2) HTN (hypertension) Status: Acute (3) New onset type 2 diabetes mellitus Status: Acute Comment Review of Relevant I have reviewed the following items muriel (where applicable) has been applied. Medications: Current Medications Medications (Trade) Dose Ordered Sig/Vladimir Route PRN Reason Start Time Stop Time Status Last Admin Dose Admin Hydrochlorothiazide (Microzide) 12.5 mg 1X ONCE PO 03/10/21 12:00 03/10/21 12:01 DC 03/10/21 12:22 Justifications for Admission Other Justification PONCHO DUMONT MD Mar 10, 2021 12:47
[2021-03-10 15:00] VITALS: BP 173/98
[2021-03-10 19:00] VITALS: BP 170/89
--- NOTE | 2021-03-10 20:15 | PDOC ---
PROGRESS NOTES Date of Service DATE: 03/10/21 TIME: 20:09 Subjective Subjective Patient was seen resting comfortably in bed with the surgical foot elevated. The dressing has been kept clean, dry and intact. Patient denies any constitutional symptoms. Patient has been tolerating the antibiotics well. Objective Objective Vital Signs Date Time Temp Pulse Resp B/P (MAP) Pulse Ox O2 Delivery O2 Flow Rate FiO2 03/10/21 19:00 97.9 102 19 170/89 (116) 99 Room Air 97.9 03/09/21 23:00 6.0 Intake and Output 03/10/21 07:00 Intake Total 2400 ml Output Total 2150 ml Balance 250 ml Intake Oral 1250 ml IV Total 1150 ml Output Urine Total 2150 ml # Voids 1 # Bowel Movements 2 Physical Exam Physical Exam General: AOx3, pleasant without distress Dermatology: -Upon dressing removal, sutures are intact to the lateral and plantar fifth ray without any signs of dehiscence, proximal streaking, purulence or discharge -The flaps appear stable and surviving Vascular: -Foot is warm to touch -DP/PT are palpable Neurology: -Light touch sensation diminished to the level of the ankle Musculoskeletal -Mild to minimal TTP to the fifth ray -Able to move digits 1 through 4 -Calf is soft and nontender -Passive ankle dorsiflexion remarked 0 degrees to neutral -With forefoot is loaded, the fifth metatarsal stump is not prominent either plantarly or laterally Assessment Assessment Problems Medical Problems: (1) Foot ulcer, left Status: Acute (2) HTN (hypertension) Status: Acute (3) New onset type 2 diabetes mellitus Status: Acute Plan Plan of Care -Explained clinical findings. Intraoperative finding Was insignificant for residual soft tissue necrotic changes or purulent tracking proximally. The skin was closed with fifth digit flap under minimal tension. -Upon dressing change, the surgical site appears stable without discharge, fluctuance, residual infection or dehiscence. The surgical site was painted with Betadine and dressed with Xeroform, 4 x 4. The left lower extremity was immobilized in a well-padded modified Vinson compression splint with ankle held in near 90 degrees. Adequate arterial perfusion was noted afterwards -Keep the dressing clean, dry and intact without dressing change -IV antibiotics: zyvox and Zosyn currently -Blood culture 03/04: Neg -Intraoperative culture 03/08: NGTD -Intraoperative culture 03/05: streptococcus -Path: osteo at 5th phalangeal base only -Superficial wound swab 03/03: Proteus, E. coli, S.Oralis -Trend WBC daily -Appreciate internal medicine for medical optimization -Strict nonweightbearing to the surgical foot -PT eval and treat Dispo: From my perspective, patient is safe to be discharged home while remain strict nonweightbearing to left lower extremity, elevate with toes above the nose every hour on the hour. Keep the dressing clean, dry and intact. Our office has scheduled a 2-week follow-up as an outpatient. Clinically, adequate source control was achieved with surgical resection. 2 weeks of oral antibiotics guided by culture and sensitivity Comment Review of Relevant I have reviewed the following items muriel (where applicable) has been applied. Labs Laboratory Tests Test 03/09/21 06:10 03/09/21 07:57 03/09/21 11:39 03/09/21 17:32 White Blood Count 16.8 x10^3/uL (4.0-11.0) Red Blood Count 4.62 x10^6/uL (4.30-5.70) Hemoglobin 14.2 g/dL (13.0-17.5) Hematocrit 42.0 % (39.0-53.0) Mean Corpuscular Volume 91 fL (79-100) Mean Corpuscular Hemoglobin 31 pg (25-35) Mean Corpuscular Hemoglobin Concent 34 g/dL (31-37) Red Cell Distribution Width 12.9 % (11.5-14.5) Platelet Count 308 x10^3/uL (140-400) Neutrophils (%) (Auto) 71 % (31-73) Lymphocytes (%) (Auto) 19 % (24-48) Monocytes (%) (Auto) 9 % (0-9) Eosinophils (%) (Auto) 1 % (0-3) Basophils (%) (Auto) 0 % (0-3) Neutrophils # (Auto) 11.8 x10^3/uL (1.8-7.7) Lymphocytes # (Auto) 3.2 x10^3/uL (1.0-4.8) Monocytes # (Auto) 1.6 x10^3/uL (0.0-1.1) Eosinophils # (Auto) 0.2 x10^3/uL (0.0-0.7) Basophils # (Auto) 0.0 x10^3/uL (0.0-0.2) Sodium Level 145 mmol/L (136-145) Potassium Level 4.3 mmol/L (3.5-5.1) Chloride Level 108 mmol/L (98-107) Carbon Dioxide Level 28 mmol/L (21-32) Anion Gap 9 (6-14) Blood Urea Nitrogen 29 mg/dL (8-26) Creatinine 2.7 mg/dL (0.7-1.3) Estimated GFR (Cockcroft-Gault) 24.4 Glucose Level 161 mg/dL (70-99) Calcium Level 8.4 mg/dL (8.5-10.1) Glucose (Fingerstick) 154 mg/dL (70-99) 209 mg/dL (70-99) 125 mg/dL (70-99) Test 03/09/21 20:41 03/10/21 04:20 03/10/21 07:47 03/10/21 11:36 Glucose (Fingerstick) 224 mg/dL (70-99) 228 mg/dL (70-99) 169 mg/dL (70-99) White Blood Count 13.5 x10^3/uL (4.0-11.0) Red Blood Count 4.93 x10^6/uL (4.30-5.70) Hemoglobin 14.3 g/dL (13.0-17.5) Hematocrit 44.6 % (39.0-53.0) Mean Corpuscular Volume 90 fL (79-100) Mean Corpuscular Hemoglobin 29 pg (25-35) Mean Corpuscular Hemoglobin Concent 32 g/dL (31-37) Red Cell Distribution Width 12.8 % (11.5-14.5) Platelet Count 312 x10^3/uL (140-400) Neutrophils (%) (Auto) 69 % (31-73) Lymphocytes (%) (Auto) 20 % (24-48) Monocytes (%) (Auto) 9 % (0-9) Eosinophils (%) (Auto) 2 % (0-3) Basophils (%) (Auto) 1 % (0-3) Neutrophils # (Auto) 9.2 x10^3/uL (1.8-7.7) Lymphocytes # (Auto) 2.7 x10^3/uL (1.0-4.8) Monocytes # (Auto) 1.3 x10^3/uL (0.0-1.1) Eosinophils # (Auto) 0.2 x10^3/uL (0.0-0.7) Basophils # (Auto) 0.1 x10^3/uL (0.0-0.2) Sodium Level 146 mmol/L (136-145) Potassium Level 4.3 mmol/L (3.5-5.1) Chloride Level 110 mmol/L (98-107) Carbon Dioxide Level 29 mmol/L (21-32) Anion Gap 7 (6-14) Blood Urea Nitrogen 35 mg/dL (8-26) Creatinine 2.8 mg/dL (0.7-1.3) Estimated GFR (Cockcroft-Gault) 23.4 Glucose Level 174 mg/dL (70-99) Calcium Level 8.7 mg/dL (8.5-10.1) Test 03/10/21 16:37 03/10/21 19:13 Glucose (Fingerstick) 233 mg/dL (70-99) 243 mg/dL (70-99) Laboratory Tests Test 03/09/21 20:41 03/10/21 04:20 03/10/21 07:47 03/10/21 11:36 Glucose (Fingerstick) 224 mg/dL (70-99) 228 mg/dL (70-99) 169 mg/dL (70-99) White Blood Count 13.5 x10^3/uL (4.0-11.0) Red Blood Count 4.93 x10^6/uL (4.30-5.70) Hemoglobin 14.3 g/dL (13.0-17.5) Hematocrit 44.6 % (39.0-53.0) Mean Corpuscular Volume 90 fL (79-100) Mean Corpuscular Hemoglobin 29 pg (25-35) Mean Corpuscular Hemoglobin Concent 32 g/dL (31-37) Red Cell Distribution Width 12.8 % (11.5-14.5) Platelet Count 312 x10^3/uL (140-400) Neutrophils (%) (Auto) 69 % (31-73) Lymphocytes (%) (Auto) 20 % (24-48) Monocytes (%) (Auto) 9 % (0-9) Eosinophils (%) (Auto) 2 % (0-3) Basophils (%) (Auto) 1 % (0-3) Neutrophils # (Auto) 9.2 x10^3/uL (1.8-7.7) Lymphocytes # (Auto) 2.7 x10^3/uL (1.0-4.8) Monocytes # (Auto) 1.3 x10^3/uL (0.0-1.1) Eosinophils # (Auto) 0.2 x10^3/uL (0.0-0.7) Basophils # (Auto) 0.1 x10^3/uL (0.0-0.2) Sodium Level 146 mmol/L (136-145) Potassium Level 4.3 mmol/L (3.5-5.1) Chloride Level 110 mmol/L (98-107) Carbon Dioxide Level 29 mmol/L (21-32) Anion Gap 7 (6-14) Blood Urea Nitrogen 35 mg/dL (8-26) Creatinine 2.8 mg/dL (0.7-1.3) Estimated GFR (Cockcroft-Gault) 23.4 Glucose Level 174 mg/dL (70-99) Calcium Level 8.7 mg/dL (8.5-10.1) Test 03/10/21 16:37 03/10/21 19:13 Glucose (Fingerstick) 233 mg/dL (70-99) 243 mg/dL (70-99) Microbiology 03/08/21 Gram Stain - Final, Resulted 03/08/21 Aerobic and Anaerobic Culture - Preliminary, Resulted 03/04/21 Blood Culture - Final, Complete NO GROWTH AFTER 5 DAYS Medications Current Medications Sodium Chloride 1,000 ml @ 0 mls/hr 1X ONCE IV Last administered on 03/03/21at 20:39; Start 03/03/21 at 20:00; Stop 03/03/21 at 20:04; Status DC Piperacillin Sod/ Tazobactam Sod 4.5 gm/Sodium Chloride 100 ml @ 200 mls/hr 1X ONCE IV Last administered on 03/04/21at 00:28; Start 03/03/21 at 23:45; Stop 03/04/21 at 00:14; Status DC Vancomycin HCl 2 gm/Sodium Chloride 500 ml @ 250 mls/hr 1X ONCE IV Last administered on 03/04/21at 00:28; Start 03/04/21 at 00:30; Stop 03/04/21 at 02:29; Status DC Vancomycin HCl (Vanco Per Pharmacy) 1 each PRN DAILY PRN MC SEE COMMENTS Last administered on 03/06/21at 15:36; Start 03/03/21 at 23:45; Stop 03/06/21 at 15:58; Status DC Lisinopril (Prinivil) 10 mg 1X ONCE PO Last administered on 03/04/21at 01:30; Start 03/04/21 at 01:30; Stop 03/04/21 at 01:31; Status DC Vancomycin HCl 1.5 gm/Sodium Chloride 500 ml @ 250 mls/hr Q8H IV Last administered on 03/06/21at 08:52; Start 03/04/21 at 09:00; Stop 03/06/21 at 15:58; Status DC Vancomycin HCl (Vancomycin Trough Level) 1 each 1X ONCE MC ; Start 03/05/21 at 00:30; Stop 03/05/21 at 00:31; Status DC Insulin Human Lispro (HumaLOG) 10 units TIDAC SQ Last administered on 03/10/21at 17:48; Start 03/04/21 at 11:30 Insulin Glargine (Lantus Syringe) 20 unit QHS SQ Last administered on 03/06/21at 20:55; Start 03/04/21 at 21:00; Stop 03/07/21 at 13:52; Status DC Amlodipine Besylate (Norvasc) 10 mg DAILY PO Last administered on 03/10/21at 08:39; Start 03/04/21 at 09:00 Piperacillin Sod/ Tazobactam Sod (Zosyn Per Pharmacy) 1 each PRN DAILY PRN MC SEE COMMENTS; Start 03/04/21 at 09:00; Stop 03/06/21 at 14:56; Status DC Piperacillin Sod/ Tazobactam Sod 4.5 gm/Sodium Chloride 100 ml @ 200 mls/hr Q6HRS IV Last administered on 03/06/21at 11:30; Start 03/04/21 at 09:00; Stop 03/06/21 at 14:57; Status DC Lactobacillus Rhamnosus (Culturelle) 1 cap BID PO Last administered on 03/10/21at 08:38; Start 03/04/21 at 21:00 Fentanyl Citrate (Fentanyl 2ml Vial) 25 mcg PRN Q5MIN PRN IVP MILD PAIN 1-3; Start 03/05/21 at 06:00; Stop 03/05/21 at 10:07; Status DC Fentanyl Citrate (Fentanyl 2ml Vial) 50 mcg PRN Q5MIN PRN IVP MODERATE PAIN 4- 6; Start 03/05/21 at 06:00; Stop 03/05/21 at 10:07; Status DC Morphine Sulfate (Morphine Sulfate) 1 mg PRN Q10MIN PRN IVP SEVERE PAIN 7-10; Start 03/05/21 at 06:00; Stop 03/06/21 at 05:59; Status DC Ringer's Solution 1,000 ml @ 30 mls/hr Q24H IV Last administered on 03/05/21at 08:00; Start 03/05/21 at 06:00; Stop 03/05/21 at 17:59; Status DC Hydromorphone HCl (Dilaudid) 0.5 mg PRN Q10MIN PRN IVP SEVERE PAIN 7-10, 2nd CHOICE; Start 03/05/21 at 06:00; Stop 03/05/21 at 10:07; Status DC Prochlorperazine Edisylate (Compazine) 5 mg PACU PRN PRN IVP NAUSEA, MRX1; Start 03/05/21 at 06:00; Stop 03/06/21 at 05:59; Status DC Bupivacaine HCl (Sensorcaine Mpf 0.25%) 30 ml STK-MED ONCE .ROUTE ; Start 03/05/21 at 07:11; Stop 03/05/21 at 07:12; Status DC Vancomycin HCl (Vancomycin) 1 gm STK-MED ONCE .ROUTE ; Start 03/05/21 at 07:11; Stop 03/05/21 at 07:12; Status DC Fentanyl Citrate (Fentanyl 2ml Vial) 100 mcg STK-MED ONCE .ROUTE ; Start 03/05/21 at 08:59; Stop 03/05/21 at 08:59; Status DC Bupivacaine HCl/ Epinephrine Bitart (Sensorcain-Epi 0.25% Kit) 30 ml STK-MED ONCE INJ Last administered on 03/05/21at 09:20; Start 03/05/21 at 09:20; Stop 03/05/21 at 09:36; Status DC Ondansetron HCl (Zofran) 4 mg STK-MED ONCE .ROUTE ; Start 03/05/21 at 09:27; Stop 03/05/21 at 09:27; Status DC Propofol (Diprivan) 200 mg STK-MED ONCE IV ; Start 03/05/21 at 09:27; Stop 03/05/21 at 09:27; Status DC Lidocaine HCl (Lidocaine Pf 2% Vial) 5 ml STK-MED ONCE .ROUTE ; Start 03/05/21 at 09:27; Stop 03/05/21 at 09:27; Status DC Ephedrine Sulfate (ePHEDrine PF IN SALINE SYRINGE) 50 mg STK-MED ONCE IV ; Start 03/05/21 at 09:34; Stop 03/05/21 at 09:34; Status DC Sevoflurane (Ultane) 30 ml STK-MED ONCE IH ; Start 03/05/21 at 09:44; Stop 03/05/21 at 09:45; Status DC Insulin Human Lispro (HumaLOG VIAL for OP,RR ONLY) 0-10 units PRN Q1HR PRN SQ PER PROTOCOL Last administered on 03/05/21at 10:16; Start 03/05/21 at 10:15; Stop 03/06/21 at 10:14; Status DC Multivitamins (Thera M Plus) 1 tab DAILY PO Last administered on 03/10/21at 08:38; Start 03/06/21 at 09:00 Ascorbic Acid (Vitamin C) 500 mg DAILY PO Last administered on 03/10/21at 08:38; Start 03/06/21 at 09:00 Piperacillin Sod/ Tazobactam Sod 3.375 gm/Sodium Chloride 50 ml @ 100 mls/hr Q6HRS IV Last administered on 03/10/21at 17:42; Start 03/06/21 at 18:00 Linezolid (Zyvox) 600 mg BID PO Last administered on 03/10/21at 08:38; Start 03/06/21 at 21:00 Sodium Chloride 1,000 ml @ 125 mls/hr Q8H IV Last administered on 03/10/21at 14:52; Start 03/06/21 at 16:00 Hydrochlorothiazide (Microzide) 12.5 mg DAILY PO Last administered on 03/10/21at 08:38; Start 03/07/21 at 10:30; Stop 03/10/21 at 11:05; Status DC Insulin Glargine (Lantus Syringe) 12 unit BID SQ Last administered on 03/10/21at 09:00; Start 03/07/21 at 21:00; Stop 03/10/21 at 12:46; Status DC Insulin Human Lispro (HumaLOG) 0-7 UNITS TIDWMEALS SQ Last administered on 03/10/21at 17:49; Start 03/07/21 at 17:00 Insulin Human Lispro (HumaLOG) 20 units 1X ONCE SQ Last administered on 03/07/21at 17:31; Start 03/07/21 at 17:30; Stop 03/07/21 at 17:31; Status DC Fentanyl Citrate (Fentanyl 2ml Vial) 25 mcg PRN Q5MIN PRN IVP MILD PAIN 1-3; Start 03/08/21 at 06:00; Stop 03/08/21 at 10:05; Status DC Fentanyl Citrate (Fentanyl 2ml Vial) 50 mcg PRN Q5MIN PRN IVP MODERATE PAIN 4- 6; Start 03/08/21 at 06:00; Stop 03/09/21 at 05:59; Status DC Morphine Sulfate (Morphine Sulfate) 1 mg PRN Q10MIN PRN IVP SEVERE PAIN 7-10; Start 03/08/21 at 06:00; Stop 03/08/21 at 10:05; Status DC Ringer's Solution 1,000 ml @ 30 mls/hr Q24H IV ; Start 03/08/21 at 06:00; Stop 03/08/21 at 17:59; Status DC Hydromorphone HCl (Dilaudid) 0.5 mg PRN Q10MIN PRN IVP SEVERE PAIN 7-10, 2nd CHOICE; Start 03/08/21 at 06:00; Stop 03/09/21 at 05:59; Status DC Prochlorperazine Edisylate (Compazine) 5 mg PACU PRN PRN IVP NAUSEA, MRX1; Start 03/08/21 at 06:00; Stop 03/09/21 at 05:59; Status DC Propofol (Diprivan) 200 mg STK-MED ONCE IV ; Start 03/08/21 at 07:39; Stop 03/08/21 at 07:39; Status DC Lidocaine HCl (Lidocaine Pf 2% Vial) 5 ml STK-MED ONCE .ROUTE ; Start 03/08/21 at 07:39; Stop 03/08/21 at 07:39; Status DC Dexamethasone Sodium Phosphate (Decadron) 4 mg STK-MED ONCE .ROUTE ; Start 03/08/21 at 07:39; Stop 03/08/21 at 07:40; Status DC Ondansetron HCl (Zofran) 4 mg STK-MED ONCE .ROUTE ; Start 03/08/21 at 07:39; Stop 03/08/21 at 07:40; Status DC Phenylephrine HCl (PHENYLEPHRINE in 0.9% NACL PF) 1 mg STK-MED ONCE IV ; Start 03/08/21 at 07:39; Stop 03/08/21 at 07:40; Status DC Fentanyl Citrate (Fentanyl 2ml Vial) 100 mcg STK-MED ONCE .ROUTE ; Start 03/08/21 at 07:41; Stop 03/08/21 at 07:41; Status DC Succinylcholine Chloride (Anectine) 200 mg STK-MED ONCE .ROUTE ; Start 03/08/21 at 07:42; Stop 03/08/21 at 07:42; Status DC Famotidine (Pepcid Vial) 20 mg STK-MED ONCE .ROUTE ; Start 03/08/21 at 07:42; Stop 03/08/21 at 07:42; Status DC Sevoflurane (Ultane) 30 ml STK-MED ONCE IH ; Start 03/08/21 at 09:04; Stop 03/08/21 at 09:04; Status DC Sevoflurane (Ultane) 60 ml STK-MED ONCE IH ; Start 03/08/21 at 09:33; Stop 03/08/21 at 09:33; Status DC Fentanyl Citrate (Fentanyl 2ml Vial) 100 mcg STK-MED ONCE .ROUTE ; Start 03/08/21 at 09:36; Stop 03/08/21 at 09:36; Status DC Morphine Sulfate (Morphine Sulfate) 2 mg STK-MED ONCE .ROUTE ; Start 03/08/21 at 09:36; Stop 03/08/21 at 09:36; Status DC Ondansetron HCl (Zofran) 4 mg PRN Q4HRS PRN IVP NAUSEA/VOMITING; Start 03/08/21 at 10:00; Stop 03/08/21 at 10:05; Status DC Bisacodyl (Dulcolax Supp) 10 mg 1X PRN PRN [place] CONSTIPATION; Start 03/09/21 at 16:00; Stop 03/10/21 at 15:59; Status DC Dextrose (Dextrose 50%-Water Syringe) 12.5 gm PRN Q15MIN PRN IV SEE COMMENTS; Start 03/08/21 at 10:00; Stop 03/08/21 at 10:05; Status DC Acetaminophen/ Hydrocodone Bitart (Lortab 5/325) 1 tab Q6HRS PRN PO PAIN; Start 03/08/21 at 10:00 Hydrochlorothiazide (Hydrodiuril) 25 mg DAILY PO ; Start 03/11/21 at 09:00 Hydrochlorothiazide (Microzide) 12.5 mg 1X ONCE PO Last administered on 03/10/21at 12:22; Start 03/10/21 at 12:00; Stop 03/10/21 at 12:01; Status DC Insulin Glargine (Lantus Syringe) 15 unit BID SQ ; Start 03/10/21 at 21:00 Vitals/I & O Vital Sign - Last 24 Hours 03/09/21 03/09/21 03/10/21 03/10/21 20:15 23:00 03:00 07:00 Temp 98.3 98.2 98.5 98.3 98.2 98.5 Pulse 95 95 100 Resp 18 20 20 B/P (MAP) 168/91 (116) 164/90 (114) 178/107 (130) Pulse Ox 96 96 97 O2 Delivery Room Air Room Air Room Air Room Air O2 Flow Rate 6.0 03/10/21 03/10/21 03/10/21 03/10/21 08:00 08:39 11:00 12:49 Temp 98.4 98.4 Pulse 100 96 Resp 20 B/P (MAP) 178/107 171/102 (125) Pulse Ox 96 O2 Delivery Room Air Room Air Room Air 03/10/21 03/10/21 15:00 19:00 Temp 97.8 97.9 97.8 97.9 Pulse 110 102 Resp 20 19 B/P (MAP) 173/98 (123) 170/89 (116) Pulse Ox 98 99 O2 Delivery Room Air Room Air Intake and Output 03/09/21 03/09/21 03/10/21 15:00 23:00 07:00 Intake Total 1750 ml 50 ml 600 ml Output Total 1550 ml 600 ml Balance 200 ml 50 ml 0 ml Justifications for Admission Other Justification KATE CARMONA DP Mar 10, 2021 20:15
[2021-03-10 22:57] VITALS: BP 201/111
[2021-03-11 02:41] VITALS: BP 201/110
[2021-03-11] MEDS ORDERED: hydrALAZINE 20 MG/ML VIAL. IVP PRN (02:45)
[2021-03-11 05:03] LABS: BASO # 0.1 x10^3/uL (0.0-0.2); BASO % 1 % (0-3); EOS # 0.2 x10^3/uL (0.0-0.7); EOS % 2 % (0-3); HEMATOCRIT 44.5 % (39.0-53.0); HEMOGLOBIN 14.7 g/dL (13.0-17.5); LYMPH # 2.6 x10^3/uL (1.0-4.8); LYMPH % 18 % (24-48); MEAN CORPUSCULAR HEMOGLOBIN 30 pg (25-35); MEAN CORPUSCULAR HGB CONC 33 g/dL (31-37); MEAN CORPUSCULAR VOLUME 91 fL (79-100); MONO # 1.1 x10^3/uL (0.0-1.1); MONO % 7 % (0-9); NEUT # 10.5 x10^3/uL (1.8-7.7); NEUT % 73 % (31-73); PLATELET COUNT 320 x10^3/uL (140-400); RED BLOOD COUNT 4.91 x10^6/uL (4.30-5.70); RED CELL DISTRIBUTION WIDTH 12.8 % (11.5-14.5); WHITE BLOOD COUNT 14.4 x10^3/uL (4.0-11.0)
[2021-03-11 05:23] LABS: CALCIUM 8.8 mg/dL (8.5-10.1); CREATININE 2.7 mg/dL (0.7-1.3); GFR 24.4; POTASSIUM 3.9 mmol/L (3.5-5.1)
[2021-03-11] MEDS: PIPERACILLIN/TAZOBACTAM 3.375 GM in IV NORMAL SALINE 50ML 50 ML IV SCH (06:02)
[2021-03-11 07:00] VITALS: BP 198/105
[2021-03-11] MEDS: IV NORMAL SALINE 1000ML BAG 1,000 ML IV SCH (07:43)
[2021-03-11] MEDS: LINEZOLID 600 MG TABLET PO SCH (08:44)
[2021-03-11] MEDS: MULTIVITAMIN with MINERAL TABLET. PO SCH (08:45)
[2021-03-11] MEDS: LACTOBACILLUS RHAMNOSUS GG 1 CAPSULE. PO SCH (08:45)
[2021-03-11] MEDS: ASCORBIC ACID 500 MG TABLET PO SCH (08:45)
[2021-03-11] MEDS ORDERED: hydroCHLOROthiazide 25 MG TABLET PO SCH (09:00)
[2021-03-11] MEDS: INSULIN LISPRO 300 UNITS/3 ML VIAL. SQ SCH ×4 (09:03→14:10)
--- NOTE | 2021-03-11 09:27 | PDOC ---
DATE OF SERVICE DATE: 03/11/21 TIME: 09:25 SUBJECTIVE ROS stable OBJECTIVE Vital Signs Vital Signs Date Time Temp Pulse Resp B/P (MAP) Pulse Ox O2 Delivery O2 Flow Rate FiO2 03/11/21 08:45 90 198/105 03/11/21 07:00 98.5 20 97 Room Air 98.5 I & 0 Intake and Output 03/11/21 07:00 Intake Total 1990 ml Output Total 3250 ml Balance -1260 ml Intake Oral 840 ml IV Total 1150 ml Output Urine Total 3250 ml # Bowel Movements 3 PHYSICAL EXAM Physical Exam General: Alert, Oriented X3, Cooperative, No acute distress HEENT: Atraumatic, PERRLA Lungs: Clear to auscultation Heart: Regular rate Abdomen: Normal bowel sounds Extremities: No clubbing, Other (LEFT FOOT BANDAGED) Skin: No breakdown Neuro: Normal speech MUSCULOSKELETAL: No swelling, Other (LLE FOOT EDEMA) DIAGNOSIS/ASSESSMENT Assessment & Plan MYCHAL-Suspect AIN probably 2/2 Vancomycin vs ATN ; UA unremarkable , Renal US no e/o LUNA , No Hydroneophrosis , good UOP. His baseline Creat was normal at presentation . Creatinine trended up- stable today ?Plateau Monitor, supportive care, strict I/O, avoid Nephrotoxins including NSAID;s , stay adequately hydrated. Dw Pt as well Renal Cyst 2.4 cm hypoechogenicity identified in the inferior pole the left kidney could be a cyst or cystic lesion. Consider CT urogram for further evaluation. Recommned Urology Consult Postop Left foot incision and drainage, fifth metatarsal head and fifth proximal phalangeal base resection New diagnosis of diabetes Hypernatremia-Mild, encourage PO fuid intake. Recommend switch to Hypotonic fluid Pt reports he doesnt have insurance, No PCP . DC planning per primary. Will Need follow up lab in 3-5 days and follow up by Hospitalist ot PCP FU with Our office next available (will try to expedite if availability in next couple of weeks") COMMENT/RELEVANT DATA Meds Current Medications Medications (Trade) Dose Ordered Sig/Vladimir Start Time Stop Time Status Last Admin Dose Admin Acetaminophen/ Hydrocodone Bitart (Lortab 5/325) 1 tab Q6HRS PRN 03/08/21 10:00 Amlodipine Besylate (Norvasc) 10 mg DAILY 03/04/21 09:00 03/11/21 08:45 10 MG Ascorbic Acid (Vitamin C) 500 mg DAILY 03/06/21 09:00 03/11/21 08:45 500 MG Bisacodyl (Dulcolax Supp) 10 mg 1X PRN PRN 03/09/21 16:00 03/10/21 15:59 DC Bupivacaine HCl (Sensorcaine Mpf 0.25%) 30 ml STK-MED ONCE 03/05/21 07:11 03/05/21 07:12 DC Bupivacaine HCl/ Epinephrine Bitart (Sensorcain-Epi 0.25% Kit) 30 ml STK-MED ONCE 03/05/21 09:20 03/05/21 09:36 DC 03/05/21 09:20 10 ML Dexamethasone Sodium Phosphate (Decadron) 4 mg STK-MED ONCE 03/08/21 07:39 03/08/21 07:40 DC Dextrose (Dextrose 50%-Water Syringe) 12.5 gm PRN Q15MIN PRN 03/08/21 10:00 03/08/21 10:05 DC Ephedrine Sulfate (ePHEDrine PF IN SALINE SYRINGE) 50 mg STK-MED ONCE 03/05/21 09:34 03/05/21 09:34 DC Famotidine (Pepcid Vial) 20 mg STK-MED ONCE 03/08/21 07:42 03/08/21 07:42 DC Fentanyl Citrate (Fentanyl 2ml Vial) 100 mcg STK-MED ONCE 03/08/21 09:36 03/08/21 09:36 DC Hydralazine HCl (Apresoline Inj) 10 mg PRN Q6HRS PRN 03/11/21 02:45 03/11/21 08:44 10 MG Hydrochlorothiazide (Hydrodiuril) 25 mg DAILY 03/11/21 09:00 03/11/21 08:44 25 MG Hydrochlorothiazide (Microzide) 12.5 mg 1X ONCE 03/10/21 12:00 03/10/21 12:01 DC 03/10/21 12:22 12.5 MG Hydromorphone HCl (Dilaudid) 0.5 mg PRN Q10MIN PRN 03/08/21 06:00 03/09/21 05:59 DC Insulin Glargine (Lantus Syringe) 15 unit BID 03/10/21 21:00 03/10/21 21:36 15 UNIT Insulin Human Lispro (HumaLOG VIAL for OP,RR ONLY) 0-10 units PRN Q1HR PRN 03/05/21 10:15 03/06/21 10:14 DC 03/05/21 10:16 6 UNIT Insulin Human Lispro (HumaLOG) 20 units 1X ONCE 03/07/21 17:30 03/07/21 17:31 DC 03/07/21 17:31 20 UNITS Lactobacillus Rhamnosus (Culturelle) 1 cap BID 03/04/21 21:00 03/11/21 08:45 1 CAP Lidocaine HCl (Lidocaine Pf 2% Vial) 5 ml STK-MED ONCE 03/08/21 07:39 03/08/21 07:39 DC Linezolid (Zyvox) 600 mg BID 03/06/21 21:00 03/11/21 08:44 600 MG Lisinopril (Prinivil) 10 mg 1X ONCE 03/04/21 01:30 03/04/21 01:31 DC 03/04/21 01:30 10 MG Morphine Sulfate (Morphine Sulfate) 2 mg STK-MED ONCE 03/08/21 09:36 03/08/21 09:36 DC Multivitamins (Thera M Plus) 1 tab DAILY 03/06/21 09:00 03/11/21 08:45 1 TAB Ondansetron HCl (Zofran) 4 mg PRN Q4HRS PRN 03/08/21 10:00 03/08/21 10:05 DC Phenylephrine HCl (PHENYLEPHRINE in 0.9% NACL PF) 1 mg STK-MED ONCE 03/08/21 07:39 03/08/21 07:40 DC Piperacillin Sod/ Tazobactam Sod (Zosyn Per Pharmacy) 1 each PRN DAILY PRN 03/04/21 09:00 03/06/21 14:56 DC Piperacillin Sod/ Tazobactam Sod 3.375 gm/Sodium Chloride 50 ml @ 100 mls/hr Q6HRS 03/06/21 18:00 03/11/21 06:02 100 MLS/HR Piperacillin Sod/ Tazobactam Sod 4.5 gm/Sodium Chloride 100 ml @ 200 mls/hr Q6HRS 03/04/21 09:00 03/06/21 14:57 DC 03/06/21 11:30 200 MLS/HR Prochlorperazine Edisylate (Compazine) 5 mg PACU PRN PRN 03/08/21 06:00 03/09/21 05:59 DC Propofol (Diprivan) 200 mg STK-MED ONCE 03/08/21 07:39 03/08/21 07:39 DC Ringer's Solution 1,000 ml @ 30 mls/hr Q24H 03/08/21 06:00 03/08/21 17:59 DC Sevoflurane (Ultane) 60 ml STK-MED ONCE 03/08/21 09:33 03/08/21 09:33 DC Sodium Chloride 1,000 ml @ 125 mls/hr Q8H 03/06/21 16:00 03/10/21 23:21 125 MLS/HR Succinylcholine Chloride (Anectine) 200 mg STK-MED ONCE 03/08/21 07:42 03/08/21 07:42 DC Vancomycin HCl (Vanco Per Pharmacy) 1 each PRN DAILY PRN 03/03/21 23:45 03/06/21 15:58 DC 03/06/21 15:36 1 EACH Vancomycin HCl (Vancomycin Trough Level) 1 each 1X ONCE 03/05/21 00:30 03/05/21 00:31 DC Vancomycin HCl (Vancomycin) 1 gm STK-MED ONCE 03/05/21 07:11 03/05/21 07:12 DC Vancomycin HCl 1.5 gm/Sodium Chloride 500 ml @ 250 mls/hr Q8H 03/04/21 09:00 03/06/21 15:58 DC 03/06/21 08:52 250 MLS/HR Vancomycin HCl 2 gm/Sodium Chloride 500 ml @ 250 mls/hr 1X ONCE 03/04/21 00:30 03/04/21 02:29 DC 03/04/21 00:28 250 MLS/HR Lab Laboratory Tests Test 03/10/21 11:36 03/10/21 16:37 03/10/21 19:13 03/11/21 03:40 Glucose (Fingerstick) 169 mg/dL (70-99) 233 mg/dL (70-99) 243 mg/dL (70-99) White Blood Count 14.4 x10^3/uL (4.0-11.0) Red Blood Count 4.91 x10^6/uL (4.30-5.70) Hemoglobin 14.7 g/dL (13.0-17.5) Hematocrit 44.5 % (39.0-53.0) Mean Corpuscular Volume 91 fL (79-100) Mean Corpuscular Hemoglobin 30 pg (25-35) Mean Corpuscular Hemoglobin Concent 33 g/dL (31-37) Red Cell Distribution Width 12.8 % (11.5-14.5) Platelet Count 320 x10^3/uL (140-400) Neutrophils (%) (Auto) 73 % (31-73) Lymphocytes (%) (Auto) 18 % (24-48) Monocytes (%) (Auto) 7 % (0-9) Eosinophils (%) (Auto) 2 % (0-3) Basophils (%) (Auto) 1 % (0-3) Neutrophils # (Auto) 10.5 x10^3/uL (1.8-7.7) Lymphocytes # (Auto) 2.6 x10^3/uL (1.0-4.8) Monocytes # (Auto) 1.1 x10^3/uL (0.0-1.1) Eosinophils # (Auto) 0.2 x10^3/uL (0.0-0.7) Basophils # (Auto) 0.1 x10^3/uL (0.0-0.2) Sodium Level 148 mmol/L (136-145) Potassium Level 3.9 mmol/L (3.5-5.1) Chloride Level 109 mmol/L (98-107) Carbon Dioxide Level 29 mmol/L (21-32) Anion Gap 10 (6-14) Blood Urea Nitrogen 30 mg/dL (8-26) Creatinine 2.7 mg/dL (0.7-1.3) Estimated GFR (Cockcroft-Gault) 24.4 Glucose Level 154 mg/dL (70-99) Calcium Level 8.8 mg/dL (8.5-10.1) Results All relevant outside records, renal labs, imaging studies, telemetry/EKG's were reviewed. Justicifation of Admission Dx: Justifications for Admission: Justification of Admission Dx: Yes Acute Renal Failure: 3-Fold Rise in Serum Crea BRYANT CUEVAS MD Mar 11, 2021 09:27
[2021-03-11] MEDS: INSULIN GLARGINE SYRINGE. SQ SCH (10:19)
[2021-03-11 11:00] VITALS: BP 164/89
[2021-03-11] MEDS ORDERED: AMLO-187 PO (13:58)
[2021-03-11] MEDS ORDERED: [UNRECOGNIZED DRUG - CODE] MC (13:58)
[2021-03-11] MEDS ORDERED: [UNRECOGNIZED DRUG - CODE] MC (13:58)
[2021-03-11] MEDS ORDERED: HYDR-2145 PO (13:58)
[2021-03-11] MEDS ORDERED: INSU100V35 SQ (13:58)
[2021-03-11] MEDS ORDERED: PEN1DIS.48 MC (13:58)
[2021-03-11] MEDS ORDERED: INSU100V8 SQ (13:58)
[2021-03-11] MEDS ORDERED: HYDR-2761 PO (13:58)
[2021-03-11] MEDS ORDERED: SULF1TAB24 PO (13:59)
[2021-03-11 15:12] VITALS: BP 171/102
--- NOTE | 2021-03-11 15:34 | NUR ---
Pt was discharge to private car at 1520. All belongings were sent with pt and discharge information was reviewed
[2021-03-11] MEDS ORDERED: SMZ/TMP 800/160MG TABLET. PO SCH (21:00)
--- NOTE | 2021-03-12 14:14 | PATHOLOGY ---
[facility] Accession Number: [id number] . 01 Material submitted: . PART A: toe - LEFT FIFTH DIGIT PROXIMAL INKED MARGIN. Modifiers: left, fifth, proximal PART B: foot - LEFT FIFTH METATARSAL PROXIMAL INKED MARGIN. Modifiers: left, fifth, proximal . 01 Clinical history: . LEFT FOOT ULCER LEFT FOOT I/D FIFTH RAY DELAYED CLOSURE WITH ROTATIONAL FLAPS R/O OSTEOMYELITIS . 02 Diagnosis: A. Segment of bone and attached fibroadipose tissue, left fifth digit: - Focal acute osteomyelitis involving proximal inked margin. - Focal periosteal reactive bone formation. . B. Segment of bone, left fifth metatarsal: - Acute osteomyelitis focally involving the proximal inked margin. (JPM/db; 03/12/2021) LBQ 03/12/2021 1015 Local . 02 Electronically signed: . Randall Reyes MD, Pathologist NPI- [id number] . 01 Gross description: . A. The specimen is received in formalin, labeled "Jeff Porras, left fifth digit, proximal margin inked". Received is a segment of bone measuring 2.5 x 1.3 x 1.0 cm in greatest mentions. One margin is slightly disrupted in appearance, and the opposite margin is transected and is inked. A full-thickness longitudinal cross-section is submitted in cassette A1, following decalcification. . B. The specimen is received in formalin, labeled "Jeff Porras, left fifth metatarsal, proximal margin inked". Received is a flat segment of light kaplan bone, with one margin inked, measuring 1.4 x 1.0 x 0.2 cm in greatest dimensions. The specimen is bisected and entirely submitted in cassette B1, following decalcification. (CAA; 03/11/2021) QAC/QAC 03/12/2021 1011 Local . 02 Pathologist provided ICD-10: M86.172 . 02 CPT . 742866, [id number], [id number], [id number] Specimen Comment: A courtesy copy of this report has been sent to [phone] Specimen Comment: Report sent to Specimen Comment: A duplicate report has been generated due to demographic updates. Performed at: 01 [facility] [address], [place] [id number] MD Rogerio Vega MD Phone: [phone] Performed at: 02 [facility] [address] [place], [place] [id number] MD Randall Reyes MD Phone: [phone]
== END 2021-03-11 18:00 | disposition home or self-care (01) | DRG 853 ==
LOC: ER 14:55 → 5 NORTH 03-04 00:14
PROVIDERS: ADMIT Internal Medicine; ATTEND Internal Medicine
PROC: 0QBP0ZZ Excision of Left Metatarsal, Open Approach (ICD-10-PCS; principal; 2021-03-05 09:00)
PROC: 0Y6N0ZF Detachment at Left Foot, Partial 5th Ray, Open Approach (ICD-10-PCS; 2021-03-08)
DX: A41.9 Sepsis, unspecified organism (principal); U07.1 COVID-19; E87.0 Hyperosmolality and hypernatremia; L03.90 Cellulitis, unspecified; M86.9 Osteomyelitis, unspecified; N17.9 Acute kidney failure, unspecified; E11.610 Type 2 diabetes mellitus with diabetic neuropathic arthropathy; E11.621 Type 2 diabetes mellitus with foot ulcer; E11.69 Type 2 diabetes mellitus with other specified complication; F17.200 Nicotine dependence, unspecified, uncomplicated; I10 Essential (primary) hypertension; L97.529 Non-pressure chronic ulcer of other part of left foot with unspecified severity; Z83.3 Family history of diabetes mellitus; Z91.19 Patient's noncompliance with other medical treatment and regimen; G62.9 Polyneuropathy, unspecified
CPT/HCPCS: 36415; 73630; 76770; 80048; 80053; 80202; 81001; 82436; 82550; 82570; 82962; 83735; 84100; 84133; 84300; 85007; 85025; 85651; 87040; 87071; 87075; 87076; 87077; 87426; 88305; 88311; 93923; 96365; 96368; A4657; A4930; A6214; A6223; A6253; A6402; A6449; A6450; J0330; J0360; J1100; J1815; J2370; J2405; J2543; J2704; J3010; J3370; J3490; J7030; J7040; J7120; U0003; U0005; 97116-GP; 97535-GO; 99285-25; G0378